=== PATIENT | female | born 1960 | race Caucasian/White ===

== ENCOUNTER 2022-06-30 17:42 | Emergency (ER) | payer MEDICAID ==
[~2022-06-30] VITALS: Ht 172.7 cm; Wt 118.2 kg
[~2022-06-30 17:42] MED LIST: AMYL1CAP56 PO; AMYL1CAP57 PO; ATOR20TA66 PO; BUDE10.2 INH; BUSP10TA11 PO; CLOT15CR73 TOP; DICL20GE TOP; DIVA-76 PO; FERR325T28 PO; IPRA3AMP31 IH; LEVE500T99 PO; LOP12.5T PO; METF-436 PO; MIRT-67 PO; NICO-907 BC; ONDA4TAB12 PO; PANT-47 PO; PRAZ5CAP2 PO; QUET25TA36 PO; QUET400T54 PO; QUET50TA15 PO; SUCR1TAB PO; TIOT4MIS5 INH; TRAM50TA2 PO; VENL75CA61 PO
--- NOTE | 2022-06-30 19:58 | NUR ---
SZ PADS IN PLACE
[2022-06-30] MEDS ORDERED: LORazepam 2 mg/ml vial IM ONE (20:15)
[2022-06-30 21:08] LABS: ALANINE AMINOTRANSFERASE 15 U/L (12-78); ALBUMIN 3.6 G/DL (3.4-5.0); ALKALINE PHOSPHATASE 95 IU/L (46-116); ANION GAP 9 (8-16); ASPARTATE AMINO TRANSFERASE 11 U/L (10-37); BILIRUBIN,TOTAL 0.3 MG/DL (0.1-1.0); BLOOD UREA NITROGEN 20 MG/DL (7-18); BUN/CREATININE RATIO 20.8 (6.6-38.0); CALCIUM 9.6 MG/DL (8.5-10.1); CHLORIDE 107 MMOL/L (99-107); CREATININE 0.96 MG/DL (0.40-0.90); GLUCOSE 111 MG/DL (70-104); POTASSIUM 4.3 MMOL/L (3.5-5.1); SODIUM 144 MMOL/L (135-145); TOTAL CARBON DIOXIDE 27.6 MMOL/L (24-32); TOTAL PROTEIN 7.1 G/DL (6.4-8.2); eGFR 59 ML/MIN
[2022-06-30 21:09] LABS: VALPROATE 52 UG/ML (50-100)
[2022-06-30 21:10] LABS: BASOPHILS # (AUTO) 0.1 X10'3 (0-0.2); BASOPHILS % (AUTO) 0.8 % (0-1); EOSINOPHILS # (AUTO) 0.2 X10'3 (0-0.9); EOSINOPHILS % (AUTO) 3.1 % (0-6); HEMATOCRIT 36.3 % (35.0-45.0); HEMOGLOBIN 12.3 g/dl (12.0-16.0); LYMPHOCYTES # (AUTO) 2.5 X10'3 (1.1-4.8); LYMPHOCYTES % (AUTO) 32.8 % (21-51); MEAN CORPUSCULAR HEMOGLOBIN 33.2 PG (27.0-31.0); MEAN CORPUSCULAR VOLUME 97.9 FL (78-98); MEAN PLATELET VOLUME 6.9 FL (7.4-10.4); MONOCYTES # (AUTO) 0.4 X10'3 (0-0.9); MONOCYTES % (AUTO) 5.5 % (2-12); NEUTROPHILS # (AUTO) 4.4 X10'3 (1.8-7.7); NEUTROPHILS % (AUTO) 57.8 % (42-75); PLATELET COUNT 317 X10'3 (140-440); RED BLOOD COUNT 3.71 X10'6 (4.20-5.60); RED CELL DISTRIBUTION WIDTH 14.4 % (11.5-14.5); WHITE BLOOD COUNT 7.6 X10'3 (4.5-11.0)
[2022-06-30] MEDS ORDERED: divalproex 250mg tablet, delayed-release PO ONE (21:15)
[2022-06-30 22:55] VITALS: BP 118/74
== END 2022-06-30 22:58 | disposition home or self-care (01) ==
LOC: ER 17:42
DX: R56.9 Unspecified convulsions (principal); I48.91 Unspecified atrial fibrillation; I10 Essential (primary) hypertension; J44.9 Chronic obstructive pulmonary disease, unspecified; E11.9 Type 2 diabetes mellitus without complications; F32.A Depression, unspecified; Z86.69 Personal history of other diseases of the nervous system and sense organs; Z86.19 Personal history of other infectious and parasitic diseases; Z98.890 Other specified postprocedural states; Z88.1 Allergy status to other antibiotic agents; Z88.8 Allergy status to other drugs, medicaments and biological substances; Z88.6 Allergy status to analgesic agent; Z79.899 Other long term (current) drug therapy
CPT/HCPCS: 36415; 72100; 80053; 80164; 82948; 85025; 93005; 96372; 99285; J2060

== ENCOUNTER 2022-08-03 17:20 | Emergency (ER) | payer MEDICAID ==
[~2022-08-03] VITALS: Ht 172.7 cm; Wt 84.1 kg
[2022-08-03 18:09] VITALS: BP 156/68
[2022-08-03] MEDS ORDERED: morphine IR (immed. release) 30mg tablet PO STA (20:34)
[2022-08-03] MEDS ORDERED: ondansetron 4mg rapidly disintigrating tab PO ONE (20:35)
--- NOTE | 2022-08-03 22:18 | NUR ---
assessment verified for Millie Clark LPN
== END 2022-08-03 22:51 | disposition home or self-care (01) ==
LOC: ER 17:21
DX: G89.29 Other chronic pain (principal); M54.9 Dorsalgia, unspecified; I10 Essential (primary) hypertension; J44.9 Chronic obstructive pulmonary disease, unspecified; E11.9 Type 2 diabetes mellitus without complications; F32.A Depression, unspecified; Z88.1 Allergy status to other antibiotic agents; Z79.899 Other long term (current) drug therapy; Z88.6 Allergy status to analgesic agent
CPT/HCPCS: 72131; 99283; 99284

== ENCOUNTER 2022-11-28 21:28 | Emergency (ER) | payer MEDICAID ==
[~2022-11-28] VITALS: Ht 172.7 cm; Wt 118.2 kg
[2022-11-28 21:32] VITALS: BP 126/84
[2022-11-28 22:01] LABS: ALANINE AMINOTRANSFERASE 37 U/L (12-78); ALBUMIN 3.4 G/DL (3.4-5.0); ALKALINE PHOSPHATASE 146 IU/L (46-116); ANION GAP 8 (8-16); ASPARTATE AMINO TRANSFERASE 17 U/L (10-37); BILIRUBIN,TOTAL 0.2 MG/DL (0.1-1.0); BLOOD UREA NITROGEN 18 MG/DL (7-18); BUN/CREATININE RATIO 18.8 (10.0-20.0); CALCIUM 9.3 MG/DL (8.5-10.1); CHLORIDE 101 MMOL/L (99-107); CREATININE 0.96 MG/DL (0.40-0.90); GLUCOSE 351 MG/DL (70-104); SODIUM 133 MMOL/L (135-145); TOTAL CARBON DIOXIDE 23.7 MMOL/L (24-32); TOTAL PROTEIN 6.7 G/DL (6.4-8.2); eGFR 59 ML/MIN
[2022-11-28 22:17] LABS: POTASSIUM 4.4 MMOL/L (3.5-5.1)
[2022-11-28 22:30] LABS: BASOPHILS # (AUTO) 0.1 X10'3 (0-0.2); EOSINOPHILS # (AUTO) 0.1 X10'3 (0-0.9); EOSINOPHILS % (AUTO) 2.7 % (0-6); HEMATOCRIT 38.7 % (35.0-45.0); HEMOGLOBIN 13.1 g/dl (12.0-16.0); LYMPHOCYTES # (AUTO) 2.2 X10'3 (1.1-4.8); LYMPHOCYTES % (AUTO) 42.2 % (21-51); MEAN CORPUSCULAR HEMOGLOBIN 32.8 PG (27.0-31.0); MEAN CORPUSCULAR HGB CONC 33.8 g/dL (33.0-36.5); MEAN CORPUSCULAR VOLUME 97.2 FL (78-98); MONOCYTES # (AUTO) 0.3 X10'3 (0-0.9); MONOCYTES % (AUTO) 5.5 % (2-12); NEUTROPHILS # (AUTO) 2.5 X10'3 (1.8-7.7); NEUTROPHILS % (AUTO) 48.6 % (42-75); PLATELET COUNT 256 X10'3 (140-440); RED BLOOD COUNT 3.98 X10'6 (4.20-5.60); RED CELL DISTRIBUTION WIDTH 12.9 % (11.5-14.5); WHITE BLOOD COUNT 5.2 X10'3 (4.5-11.0)
[2022-11-28] MEDS ORDERED: normal saline 1000ml 1,000 ML IV ONE (23:10)
[2022-11-29] MEDS ORDERED: acetaminophen 325mg tablet PO ONE (00:30)
== END 2022-11-29 01:37 | disposition home or self-care (01) ==
LOC: ER 21:28
DX: R42 Dizziness and giddiness (principal); R11.0 Nausea; I50.9 Heart failure, unspecified; J45.909 Unspecified asthma, uncomplicated; E11.9 Type 2 diabetes mellitus without complications; F32.A Depression, unspecified; Z88.1 Allergy status to other antibiotic agents; Z88.8 Allergy status to other drugs, medicaments and biological substances; Z79.899 Other long term (current) drug therapy; Z88.6 Allergy status to analgesic agent; Z79.82 Long term (current) use of aspirin
CPT/HCPCS: 36415; 71045; 80053; 83880; 84484; 85025; 93005; 96360; 99285; J7030

== ENCOUNTER 2023-02-14 23:24 | Emergency (ER) | payer MEDICAID ==
[~2023-02-14] VITALS: Ht 172.7 cm; Wt 118.2 kg
[2023-02-15 00:03] LABS: ALANINE AMINOTRANSFERASE 16 U/L (12-78); ALBUMIN 3.5 G/DL (3.4-5.0); ALBUMIN/GLOBULIN RATIO 1.1 (1.1-1.5); ALKALINE PHOSPHATASE 83 IU/L (46-116); ANION GAP 10 (8-16); ASPARTATE AMINO TRANSFERASE 10 U/L (10-37); BILIRUBIN,TOTAL 0.3 MG/DL (0.1-1.0); BLOOD UREA NITROGEN 19 MG/DL (7-18); BUN/CREATININE RATIO 20.7 (10.0-20.0); CALCIUM 9.3 MG/DL (8.5-10.1); CHLORIDE 105 MMOL/L (99-107); CREATININE 0.92 MG/DL (0.40-0.90); GLUCOSE 239 MG/DL (70-104); POTASSIUM 3.7 MMOL/L (3.5-5.1); SODIUM 138 MMOL/L (135-145); TOTAL CARBON DIOXIDE 23.1 MMOL/L (24-32); TOTAL PROTEIN 6.6 G/DL (6.4-8.2); eGFR 61 ML/MIN
[2023-02-15 00:17] LABS: BASOPHILS % (AUTO) 0.3 % (0-1); EOSINOPHILS % (AUTO) 0 % (0-6); HEMATOCRIT 36.9 % (35.0-45.0); LYMPHOCYTES # (AUTO) 2.1 X10'3 (1.1-4.8); LYMPHOCYTES % (AUTO) 38.5 % (21-51); MEAN CORPUSCULAR HEMOGLOBIN 32.1 PG (27.0-31.0); MEAN CORPUSCULAR HGB CONC 32.6 g/dL (33.0-36.5); MEAN CORPUSCULAR VOLUME 98.4 FL (78-98); MEAN PLATELET VOLUME 7.1 FL (7.4-10.4); MONOCYTES # (AUTO) 0.2 X10'3 (0-0.9); MONOCYTES % (AUTO) 4.2 % (2-12); NEUTROPHILS # (AUTO) 3.1 X10'3 (1.8-7.7); PLATELET COUNT 211 X10'3 (140-440); RED BLOOD COUNT 3.75 X10'6 (4.20-5.60); RED CELL DISTRIBUTION WIDTH 13.4 % (11.5-14.5); WHITE BLOOD COUNT 5.5 X10'3 (4.5-11.0)
[2023-02-15] MEDS ORDERED: normal saline 1000ml 1,000 ML IV ONE (00:25)
[2023-02-15] MEDS ORDERED: LORazepam 2 mg/ml vial IV ONE (00:25)
[2023-02-15 02:50] LABS: CLARITY,URINE CLEAR (Clear); COLOR,URINE YELLOW (Yellow); GLUCOSE, URINE 500 mg/dl (Neg); KETONES,URINE TRACE mg/dl (Neg); LEUKOCYTE ESTERASE ,URINE NEGATIVE (Neg); NITRITES, URINE NEGATIVE (Neg); OCCULT BLOOD,URINE NEGATIVE (Neg); PROTEIN,URINE NEGATIVE (Neg); UROBILINOGEN,URINE 0.2 E.U/dL (0.2-1.0)
[2023-02-15 02:56] LABS: UA COLLECTION TYPE STRAIGHT CATH
[2023-02-15 05:08] VITALS: BP 119/47
== END 2023-02-15 05:10 | disposition home or self-care (01) ==
LOC: ER 23:24
DX: S60.222A Contusion of left hand, initial encounter (principal); R56.9 Unspecified convulsions; M54.6 Pain in thoracic spine; X58.XXXA Exposure to other specified factors, initial encounter; Y93.89 Activity, other specified; Y92.89 Other specified places as the place of occurrence of the external cause; Y99.8 Other external cause status
CPT/HCPCS: 36415; 71045; 72110; 73130; 80053; 81003; 82948; 83880; 84484; 85025; 93005; 96361; 96374; 99285; J2060; J7030

== ENCOUNTER 2023-02-23 11:26 | Emergency (ER) | payer MEDICAID ==
[~2023-02-23] VITALS: Ht 172.7 cm; Wt 120.0 kg
[2023-02-23 13:17] LABS: EOSINOPHILS % (AUTO) 0.1 % (0-6); LYMPHOCYTES # (AUTO) 2.4 X10'3 (1.1-4.8); MEAN PLATELET VOLUME 8.4 FL (7.4-10.4); MONOCYTES # (AUTO) 0.6 X10'3 (0-0.9)
[2023-02-23 13:18] LABS: BASOPHILS # (AUTO) 0.1 X10'3 (0-0.2); BASOPHILS % (AUTO) 0.8 % (0-1); HEMATOCRIT 37.5 % (35.0-45.0); HEMOGLOBIN 12.9 g/dl (12.0-16.0); MEAN CORPUSCULAR HEMOGLOBIN 33.2 PG (27.0-31.0); MEAN CORPUSCULAR HGB CONC 34.5 g/dL (33.0-36.5); MEAN CORPUSCULAR VOLUME 96.4 FL (78-98); MONOCYTES % (AUTO) 5.9 % (2-12); NEUTROPHILS % (AUTO) 69.2 % (42-75); PLATELET COUNT 231 X10'3 (140-440); RED BLOOD COUNT 3.89 X10'6 (4.20-5.60); RED CELL DISTRIBUTION WIDTH 13.4 % (11.5-14.5)
[2023-02-23 13:34] LABS: URINE AMPHETAMINE SCREEN NEGATIVE (Neg); URINE BARBITUATE SCREEN NEGATIVE (Neg); URINE BENZODIAZEPINES SCREEN NEGATIVE (Neg); URINE CANNABINOID SCREEN POSITIVE (Neg); URINE COCAINE SCREEN NEGATIVE (Neg); URINE METHADONE SCREEN NEGATIVE (Neg); URINE OPIATE SCREEN NEGATIVE (Neg); URINE PHENCYCLIDINE SCREEN NEGATIVE (Neg)
[2023-02-23 13:34] LABS: ALANINE AMINOTRANSFERASE 26 U/L (12-78); ALBUMIN 3.4 G/DL (3.4-5.0); ALBUMIN/GLOBULIN RATIO 1.1 (1.1-1.5); ALKALINE PHOSPHATASE 101 IU/L (46-116); ANION GAP 12 (8-16); ASPARTATE AMINO TRANSFERASE 11 U/L (10-37); BILIRUBIN,TOTAL 0.2 MG/DL (0.1-1.0); BLOOD UREA NITROGEN 16 MG/DL (7-18); BUN/CREATININE RATIO 48.5 (10.0-20.0); CHLORIDE 101 MMOL/L (99-107); CREATININE 0.33 MG/DL (0.40-0.90); ETHANOL < 0.010 GM/DL (0.0-0.010); GLUCOSE 306 MG/DL (70-104); POTASSIUM 3.7 MMOL/L (3.5-5.1); SODIUM 137 MMOL/L (135-145); TOTAL CARBON DIOXIDE 23.6 MMOL/L (24-32); TOTAL PROTEIN 6.5 G/DL (6.4-8.2); eGFR > 90 ML/MIN
--- NOTE | 2023-02-23 14:30 | NUR ---
Pt. arrived via WC with NC, reports 2L/M O2, Pt. inventory completed, and all medications taken to pharmacy
--- NOTE | 2023-02-23 17:36 | NUR ---
Pt. in bed awake, reading a book, no s/sx of distress.
[2023-02-23] MEDS ORDERED: dextrose 50%-water 50ml dispensing syringe IV PRN ×2 (17:40)
[2023-02-23] MEDS ORDERED: DEXTROSE 15 GM of carb/4 tabs (each vial/BOTTLE has 4 tablets) PO PRN ×2 (17:40)
[2023-02-23] MEDS ORDERED: glucagon, human recombinant 1mg kit SUBCUT PRN (17:40)
[2023-02-23] MEDS ORDERED: MESSAGE TO PHARMACY PO ONE (17:40)
[2023-02-23] MEDS ORDERED: LIPASE/PROTEASE/AMYLASE 10,500 units CAPSULE.DR PO PRN (18:00)
[2023-02-23] MEDS ORDERED: ipratropium/albuterol 3ml nebule IH PRN (18:00)
[2023-02-23] MEDS ORDERED: ondansetron 4mg rapidly disintigrating tab PO PRN (18:00)
[2023-02-23] MEDS ORDERED: METO25TA6 PO (18:03)
[2023-02-23] MEDS ORDERED: QUET50TA94 PO (18:03)
[2023-02-23] MEDS ORDERED: ATOR40TA72 PO (18:03)
[2023-02-23] MEDS ORDERED: QUET400T54 PO (18:03)
[2023-02-23] MEDS ORDERED: LEVE10006 PO (18:42)
--- NOTE | 2023-02-23 18:46 | NUR ---
Pt eating dinner at bedside. No acute distress noted.
[2023-02-23] MEDS ORDERED: non-formulary drug (Levetiracetam 1 TAB) PO SCH (20:00)
[2023-02-23] MEDS: nystatin 15 GM powder TP SCH (20:00)
[2023-02-23] MEDS: busPIRone 15mg tablet PO SCH (20:27)
[2023-02-23] MEDS: atorvastatin 20mg tablet PO SCH (20:27)
[2023-02-23] MEDS: mirtazapine 15mg tablet PO SCH (20:27)
[2023-02-23] MEDS: ferrous sulfate 325mg tablet PO SCH (20:27)
[2023-02-23] MEDS: levetiracetam 250mg tablet PO SCH (20:27)
[2023-02-23] MEDS: divalproex 250mg tablet, delayed-release PO SCH (20:27)
[2023-02-23] MEDS: sucralfate 1 gm tablet PO SCH (20:28)
[2023-02-23] MEDS: metoprolol tartrate 12.5mg (1/2 tablet) PO SCH (20:28)
[2023-02-23] MEDS: QUETIAPINE 50 MG TAB.SR.24H PO SCH (21:00)
[2023-02-23] MEDS ORDERED: QUETIAPINE 50 MG TAB.SR.24H PO SCH (21:00)
[2023-02-23] MEDS: prazosin 5mg capsule PO SCH (21:00)
[2023-02-23] MEDS ORDERED: QUETIAPINE 150 MG TAB.SR.24H PO SCH (21:00)
[2023-02-23] MEDS: quetiapine fumarate ER 300mg tablet PO SCH (21:00)
[2023-02-23] MEDS: DICLOFENAC SODIUM 1% gel 1 APPLIC APPLIC TP SCH (21:10)
--- NOTE | 2023-02-23 21:12 | NUR ---
HS medications administered. Accucheck done and was 310. Pt reading a book at this time.
[2023-02-23] MEDS: insulin Lispro (HumaLOG) vial - multi-dose SQ SCH (21:41)
[2023-02-23] MEDS: insulin glargine (Lantus) pen - multi-dose SQ SCH (21:43)
--- NOTE | 2023-02-23 21:46 | NUR ---
Insulin administered per orders/protocol. Pt continues to read in bed, no distress noted.
--- NOTE | 2023-02-23 23:15 | NUR ---
Pt appears to be sleeping on her left side, noted rise and fall of chest.
--- NOTE | 2023-02-24 00:47 | NUR ---
Patient sleeping on her left side. Patient is wearing oxygen. No distress observed. Continue to monitor.
--- NOTE | 2023-02-24 02:31 | NUR ---
Patient continues to sleep. No distress observed. Patient has Oxygen 2 liters via NC. Continue to monitor.
--- NOTE | 2023-02-24 02:43 | NUR ---
Patient ambulatory to BR, steady gait. No distress observed. Continue to monitor.
[2023-02-24] MEDS: ipratropium 0.5 MG/2.5ML nebule NEB SCH ×4 (02:56→21:32)
--- NOTE | 2023-02-24 04:40 | NUR ---
Patient sleeping with oxygen via NC. No distress observed. Continue to monitor.
--- NOTE | 2023-02-24 06:48 | NUR ---
Patient awake and looking at a book. No distress observed. Continue to monitor.
--- NOTE | 2023-02-24 08:12 | NUR ---
Patient eating breakfast. No distress observed. Continue to monitor.
[2023-02-24] MEDS: levetiracetam 250mg tablet PO SCH ×2 (08:14→20:30)
[2023-02-24] MEDS: busPIRone 15mg tablet PO SCH ×2 (08:15→20:31)
[2023-02-24] MEDS: sucralfate 1 gm tablet PO SCH ×2 (08:15→20:31)
[2023-02-24] MEDS: pantoprazole 40mg Tablet.DR PO SCH (08:15)
[2023-02-24] MEDS: metoprolol tartrate 12.5mg (1/2 tablet) PO SCH ×2 (08:17→20:30)
[2023-02-24] MEDS: ferrous sulfate 325mg tablet PO SCH ×2 (08:17→20:30)
[2023-02-24] MEDS: venlafaxine XR 75mg capsule (Q24H) PO SCH (08:17)
[2023-02-24] MEDS: divalproex 250mg tablet, delayed-release PO SCH ×2 (08:17→20:31)
[2023-02-24] MEDS: DICLOFENAC SODIUM 1% gel 1 APPLIC APPLIC TP SCH ×4 (08:18→20:33)
[2023-02-24] MEDS: nystatin 15 GM powder TP SCH ×2 (08:18→20:30)
[2023-02-24] MEDS: insulin Lispro (HumaLOG) vial - multi-dose SQ SCH ×4 (08:40→21:54)
--- NOTE | 2023-02-24 08:50 | NUR ---
Patient went to speak to patient and patien't arms and legs were moving but patient was completely awake. RN asked patient what was going on. Patient stated she was having a seizure. RN advised patient that she did receive Keppra a little earlier. The shaking stopped after I spoke to patient. Continue to monitor.
--- NOTE | 2023-02-24 09:57 | NUR ---
Raquel PACE, evaluating patient. No distress observed at this time. Continue to monitor.
--- NOTE | 2023-02-24 11:51 | NUR ---
Patient sleeping. No distress observed. Continue to monitor.
--- NOTE | 2023-02-24 12:25 | NUR ---
Patient eating lunch. No distress observed. Continue to monitor.
--- NOTE | 2023-02-24 14:05 | NUR ---
Patient sleeping on her right side. No distress observed. Continue to monitor.
--- NOTE | 2023-02-24 16:01 | NUR ---
Patient laying in bed with ear plugs in ears due to commotion in ED. OF. No distress observed. Continue to monitor.
--- NOTE | 2023-02-24 18:35 | NUR ---
Received patient eating dinner. Insulin to be given once she's finished eating. Pleasant and cooperative. No needs expressed at this time.
[2023-02-24] MEDS: mirtazapine 15mg tablet PO SCH (20:30)
[2023-02-24] MEDS: prazosin 5mg capsule PO SCH (20:30)
--- NOTE | 2023-02-24 20:30 | NUR ---
Patient compliant with HS meds. Administered a PRN Ultram for pain. Will continue to monitor.
[2023-02-24] MEDS: quetiapine fumarate ER 300mg tablet PO SCH (20:31)
[2023-02-24] MEDS: QUETIAPINE 50 MG TAB.SR.24H PO SCH (20:31)
[2023-02-24] MEDS: atorvastatin 20mg tablet PO SCH (20:31)
[2023-02-24] MEDS: traMADol 50MG tablet PO PRN (20:34)
--- NOTE | 2023-02-24 21:45 | NUR ---
Patient received her HS RT tx, Lantus, and Humalog insulins with her HS snack. Patient currently reading a book. Will continue to monitor.
[2023-02-24] MEDS: insulin glargine (Lantus) pen - multi-dose SQ SCH (21:55)
--- NOTE | 2023-02-24 23:05 | NUR ---
Patient appears to be sleeping. Resting on left side with eyes closed. Will continue to monitor.
--- NOTE | 2023-02-25 00:25 | NUR ---
Currently sleeping. Will continue to monitor.
--- NOTE | 2023-02-25 02:03 | NUR ---
Patient sleeping. Will continue to monitor.
[2023-02-25] MEDS: ipratropium 0.5 MG/2.5ML nebule NEB SCH ×4 (03:00→21:00)
--- NOTE | 2023-02-25 05:00 | NUR ---
Patient asleep. Will continue to monitor.
--- NOTE | 2023-02-25 06:45 | NUR ---
Patient sleeping. No distress observed. Continue to monitor.
--- NOTE | 2023-02-25 08:03 | NUR ---
Patient eating breakfast. No distress observed. Continue to monitor.
[2023-02-25] MEDS: insulin Lispro (HumaLOG) vial - multi-dose SQ SCH ×4 (08:43→21:22)
[2023-02-25] MEDS: busPIRone 15mg tablet PO SCH ×2 (08:45→21:15)
[2023-02-25] MEDS: divalproex 250mg tablet, delayed-release PO SCH ×2 (08:45→21:16)
[2023-02-25] MEDS: sucralfate 1 gm tablet PO SCH ×2 (08:45→21:14)
[2023-02-25] MEDS: levetiracetam 250mg tablet PO SCH ×2 (08:45→21:15)
[2023-02-25] MEDS: pantoprazole 40mg Tablet.DR PO SCH (08:45)
[2023-02-25] MEDS: ferrous sulfate 325mg tablet PO SCH ×2 (08:45→21:15)
[2023-02-25] MEDS: metoprolol tartrate 12.5mg (1/2 tablet) PO SCH ×2 (08:46→21:14)
[2023-02-25] MEDS: venlafaxine XR 75mg capsule (Q24H) PO SCH (08:46)
[2023-02-25] MEDS: DICLOFENAC SODIUM 1% gel 1 APPLIC APPLIC TP SCH ×4 (08:47→21:00)
[2023-02-25] MEDS: nystatin 15 GM powder TP SCH ×2 (08:47→20:00)
--- NOTE | 2023-02-25 09:05 | NUR ---
Patient refused the gel for her back and requested a Tramadol for her back pain. Patient drinking coffee. No distress observed. Continue to monitor.
[2023-02-25] MEDS: traMADol 50MG tablet PO PRN ×2 (09:11→17:15)
--- NOTE | 2023-02-25 11:59 | NUR ---
Patient ambulatory to BR, steady gait. No distress observed. Continue to monitor.
--- NOTE | 2023-02-25 14:10 | NUR ---
Patient sleeping and on Oxygen via NC. No distress observed. Continue to monitor.
--- NOTE | 2023-02-25 16:26 | NUR ---
Patient at nurse's station asking for her son's phone number. No recorded. Patient gave it to the health care social worker yesterday. RN went into patient's back pack and found her phone but it needed to be charged. RN found the patent lawyer and plugged at nurse's station. When charged, patient may get the number at the nurse's station. Patient is calm and cooperative. Continue to monitor.
--- NOTE | 2023-02-25 17:15 | NUR ---
Patient in bed reading a book and advises RN that her back pain is an 8/10. Tramadol given. Continue to monitor.
--- NOTE | 2023-02-25 18:30 | NUR ---
Patient eating dinner. Quietly resting in bed. No nneds voiced. Will continue to monitor.
--- NOTE | 2023-02-25 19:00 | NUR ---
Administered sliding scale insulin post dinner. Tolerated well. Asked for cell phone to get her son's number. Collected the numbers and called her son. Will continue to monitor.
--- NOTE | 2023-02-25 19:58 | NUR ---
Currently sitting in bed with light off. No needs voiced at this time. Will continue to monitor.
[2023-02-25] MEDS: atorvastatin 20mg tablet PO SCH (21:14)
[2023-02-25] MEDS: QUETIAPINE 50 MG TAB.SR.24H PO SCH (21:15)
[2023-02-25] MEDS: quetiapine fumarate ER 300mg tablet PO SCH (21:15)
[2023-02-25] MEDS: prazosin 5mg capsule PO SCH (21:15)
--- NOTE | 2023-02-25 21:15 | NUR ---
Compliant with HS meds. Pain improved from 1715 Ultram. Received 3 units SSI and 12 Units Lantus SQ with 2 packets saltine crackers. Patient is feeling sleepy and is trying to fall asleep. No complaints noted at this time. Will continue to monitor.
[2023-02-25] MEDS: mirtazapine 15mg tablet PO SCH (21:16)
[2023-02-25] MEDS: insulin glargine (Lantus) pen - multi-dose SQ SCH (21:24)
--- NOTE | 2023-02-25 22:02 | NUR ---
Patient appears to be sleeping. Rise/fall of chest noted. Will continue to monitor.
--- NOTE | 2023-02-26 00:25 | NUR ---
Patient go up to BR. Back in bed. Resting with eyes closed. Will continue to monitor.
[2023-02-26] MEDS: traMADol 50MG tablet PO PRN ×3 (02:24→20:17)
--- NOTE | 2023-02-26 02:24 | NUR ---
Patient woke up and requested an Ultram. Administered an Ultram at this time and went back to sleep.
[2023-02-26] MEDS: ipratropium 0.5 MG/2.5ML nebule NEB SCH ×4 (02:58→20:07)
--- NOTE | 2023-02-26 04:30 | NUR ---
Patient sleeping. Will continue to monitor.
--- NOTE | 2023-02-26 07:04 | NUR ---
Pt resting comfortbly on left side, rr even and unlabored. Addendum: 02/26/23 at 1021 by NEIDA Pt on 2LNC
[2023-02-26] MEDS: insulin Lispro (HumaLOG) vial - multi-dose SQ SCH ×3 (09:58→18:10)
--- NOTE | 2023-02-26 10:00 | NUR ---
One to one with patient to assess SI and mood. Pt was pleasant on greeting. Pt was compliant with care and medication. Pt ate 100% of her breakfast. Pt reports continued SI with a plan "I could cut my wrists, hang myself, or walk into the river." Pt states "I have fibromyaligia and that river would freeze me up and I would drown." Pt reports [facility] issues to include her grandchildren being taken away and placed into a foster home r/t her MH. Pt appears more angry then sad, but still would not feel safe going home. Pt denies HI, endorses AH "I hear so many voices in my head, I don't know what they are saying." "It's like a convention and a lot of buzzing." "I sometimes feel like I have luisa between my ears." Pt is visible to staff.
[2023-02-26] MEDS: sucralfate 1 gm tablet PO SCH ×2 (10:04→20:37)
[2023-02-26] MEDS: levetiracetam 250mg tablet PO SCH ×2 (10:07→20:14)
[2023-02-26] MEDS: nystatin 15 GM powder TP SCH ×2 (10:07→20:17)
[2023-02-26] MEDS: venlafaxine XR 75mg capsule (Q24H) PO SCH (10:08)
[2023-02-26] MEDS: divalproex 250mg tablet, delayed-release PO SCH ×2 (10:08→20:15)
[2023-02-26] MEDS: busPIRone 15mg tablet PO SCH ×2 (10:08→20:15)
[2023-02-26] MEDS: pantoprazole 40mg Tablet.DR PO SCH (10:08)
[2023-02-26] MEDS: ferrous sulfate 325mg tablet PO SCH ×2 (10:09→20:15)
[2023-02-26] MEDS: DICLOFENAC SODIUM 1% gel 1 APPLIC APPLIC TP SCH ×4 (10:10→20:18)
[2023-02-26] MEDS: metoprolol tartrate 12.5mg (1/2 tablet) PO SCH ×2 (10:10→20:16)
--- NOTE | 2023-02-26 12:05 | NUR ---
Patient lying awake reading. No complaints.
--- NOTE | 2023-02-26 13:15 | NUR ---
Pt was up to the bathroom, when she returned pt told magnetic tape typewriter operator on of the other patient's made her nervous. This particular patient had recently been medicated and magnetic tape typewriter operator explained staff could walk with her next time.
--- NOTE | 2023-02-26 13:36 | NUR ---
Pt c/o of back pain and requested PRN Tramadol. Addendum: 02/26/23 at 1612 by NEIDA Tramadol effective.
--- NOTE | 2023-02-26 13:55 | NUR ---
Pt's son at bedside, conversation appropriate.
--- NOTE | 2023-02-26 14:02 | NUR ---
Patient resting comfortably on left side, rr even and unlabored.
--- NOTE | 2023-02-26 14:10 | NUR ---
pt. refused afternoon SVN. No resp. distress observed
--- NOTE | 2023-02-26 16:10 | NUR ---
Pt awake sitting on her bed. Pt restless, but declined intervention.
[2023-02-26] MEDS: insulin glargine (Lantus) pen - multi-dose SQ SCH (20:13)
[2023-02-26] MEDS: quetiapine fumarate ER 300mg tablet PO SCH (20:14)
[2023-02-26] MEDS: prazosin 5mg capsule PO SCH (20:15)
[2023-02-26] MEDS: atorvastatin 20mg tablet PO SCH (20:16)
[2023-02-26] MEDS: mirtazapine 15mg tablet PO SCH (20:17)
[2023-02-26] MEDS: QUETIAPINE 50 MG TAB.SR.24H PO SCH (20:36)
--- NOTE | 2023-02-26 20:55 | NUR ---
The patient has been resting on her bed reading a book. She ambulates independently to the bathroom. She does report sob when up to use the bathroom. She is using 02 via NC at 2l. She stated that her mood was "okay" She also claims to be depressed but reports her depression is slightly less than on admit to the ER. She is aware that her 5150 hold is up tomorrow and she will be re-evaluated by [facility] tomorrow. When asked if she felt suicidal she reported "all the time. I have had suicidal thoughts for 51 years. I just don't act on it" She reports she is unsure if she can be safe if she were at home. She reports AH but stated that she cannot make out what the voices are saying. She denies VH at this time. HS BS was 143.
--- NOTE | 2023-02-26 21:27 | NUR ---
The patient appears to be sleeping
--- NOTE | 2023-02-26 22:52 | NUR ---
The patient appears to be sleeping
--- NOTE | 2023-02-27 00:02 | NUR ---
The patient appears to be sleeping
--- NOTE | 2023-02-27 01:37 | NUR ---
The patient is currently sleeping. Was up once to use the bathroom and request snack items.
--- NOTE | 2023-02-27 02:34 | NUR ---
The patient appears to be sleeping
[2023-02-27] MEDS: ipratropium 0.5 MG/2.5ML nebule NEB SCH ×4 (02:40→21:00)
--- NOTE | 2023-02-27 03:45 | NUR ---
The patient is currently awake 2nd to agitation of another peer. She is quietly resting on her bed.
--- NOTE | 2023-02-27 05:00 | NUR ---
The patient appears to be sleeping
[2023-02-27] MEDS: traMADol 50MG tablet PO PRN ×3 (06:02→20:39)
--- NOTE | 2023-02-27 06:30 | NUR ---
Received pt. sleeping in bed at the beginning of the shift, rise and fall of chest noted. Pt. continues to receive oxygen via nasal cannula at 2L/min.
[2023-02-27] MEDS: sucralfate 1 gm tablet PO SCH ×2 (07:39→20:38)
[2023-02-27] MEDS: DICLOFENAC SODIUM 1% gel 1 APPLIC APPLIC TP SCH ×4 (08:00→20:40)
[2023-02-27] MEDS: insulin Lispro (HumaLOG) vial - multi-dose SQ SCH ×3 (08:22→18:29)
--- NOTE | 2023-02-27 08:30 | NUR ---
1:1 was completed at bedside, pt. presents as pleasant and cooperative. Pt. reports ongoing S/I, but reports it is not as bad today. When questioned regarding any plan, pt. states, "Whatever way. I live [facility] [place] When questioned by this television writer regarding any V/GARSIA, pt. reports that she sees "Shadows." When questioned regarding any A/GARSIA, pt. endorses theses and states, "I feel like I'm in a convention crane and can't pick out any one conversation."
[2023-02-27] MEDS: levetiracetam 250mg tablet PO SCH ×2 (08:32→20:38)
[2023-02-27] MEDS: venlafaxine XR 75mg capsule (Q24H) PO SCH (08:32)
[2023-02-27] MEDS: busPIRone 15mg tablet PO SCH ×2 (08:32→20:38)
[2023-02-27] MEDS: ferrous sulfate 325mg tablet PO SCH ×2 (08:32→20:38)
[2023-02-27] MEDS: divalproex 250mg tablet, delayed-release PO SCH ×2 (08:32→20:37)
[2023-02-27] MEDS: metoprolol tartrate 12.5mg (1/2 tablet) PO SCH ×2 (08:33→20:38)
[2023-02-27] MEDS: nystatin 15 GM powder TP SCH ×2 (08:33→20:37)
[2023-02-27] MEDS: pantoprazole 40mg Tablet.DR PO SCH (08:33)
--- NOTE | 2023-02-27 10:31 | NUR ---
Pt. is sleeping at this time, rr are even and unlabored.
--- NOTE | 2023-02-27 11:52 | NUR ---
Pt's family is at bedside visiting her at this time.
--- NOTE | 2023-02-27 12:20 | NUR ---
Pt's family remains at bedside at this time. Plastic knife removed from pt's tray per safety precautions and request for no plastic knives on pt's tray was sent to [facility].
--- NOTE | 2023-02-27 12:51 | NUR ---
Jose Angel PACE, ANNE is here evaluating patient.
--- NOTE | 2023-02-27 14:28 | NUR ---
Pt. is laying in bed reading at this time, she was provided with MOM for constipation.
--- NOTE | 2023-02-27 16:20 | NUR ---
Pt. up to use the bathroom at this time. She has refused her ordered Voltarin Gel all day reporting that it does not work for her, will endorse to Noc shift.
--- NOTE | 2023-02-27 17:47 | NUR ---
Pt. is laying in bed sleeping at this time, rr are even and unlabored.
--- NOTE | 2023-02-27 19:21 | NUR ---
The patient's son and his girlfriend came to visit and the girlfriend became agitated and was threatening to take the patient out of the hospital. Security was called and they both calmed down. 5150 status explained. They will come and speak with [facility] tomorrow and state that they feel they can keep her safe.
--- NOTE | 2023-02-27 19:33 | NUR ---
The patient has been resting on her bed. She has been cooperative. When asked if she could be safe at home she replied, "For the most part" Denied visual hallucinations. She reports decreased AH.
[2023-02-27] MEDS: prazosin 5mg capsule PO SCH (20:38)
[2023-02-27] MEDS: mirtazapine 15mg tablet PO SCH (20:38)
[2023-02-27] MEDS: atorvastatin 20mg tablet PO SCH (20:38)
[2023-02-27] MEDS: quetiapine fumarate ER 300mg tablet PO SCH (20:39)
[2023-02-27] MEDS: QUETIAPINE 50 MG TAB.SR.24H PO SCH (20:39)
[2023-02-27] MEDS: insulin glargine (Lantus) pen - multi-dose SQ SCH (20:52)
--- NOTE | 2023-02-27 21:03 | NUR ---
The patient is resting on her bed. Discussed changes to lantus dose. She was given an HS snack.
--- NOTE | 2023-02-27 22:31 | NUR ---
The patient appears to be sleeping
--- NOTE | 2023-02-27 23:16 | NUR ---
The patient appears to be sleeping. Was up briefly to use the bathroom but is now back in bed.
--- NOTE | 2023-02-27 23:56 | NUR ---
The patient appears to be sleeping
--- NOTE | 2023-02-28 01:14 | NUR ---
The patient appears to be sleeping
[2023-02-28] MEDS: ipratropium 0.5 MG/2.5ML nebule NEB SCH ×3 (02:57→15:38)
--- NOTE | 2023-02-28 03:13 | NUR ---
The patient appears to be sleeping
[2023-02-28] MEDS: traMADol 50MG tablet PO PRN ×2 (03:59→11:18)
--- NOTE | 2023-02-28 05:04 | NUR ---
The patient appears to be sleeping at this time. She was up to use the bathroom several times during the night and had ultram for pain once
--- NOTE | 2023-02-28 07:00 | NUR ---
Pt resting comfortably in mid rivera's position, rr even and unlabored. Addendum: 02/28/23 at 1730 by NEIDA Pt on 2LNC
[2023-02-28] MEDS: DICLOFENAC SODIUM 1% gel 1 APPLIC APPLIC TP SCH ×3 (08:00→17:00)
[2023-02-28] MEDS: ferrous sulfate 325mg tablet PO SCH (08:48)
[2023-02-28] MEDS: sucralfate 1 gm tablet PO SCH (08:48)
[2023-02-28] MEDS: pantoprazole 40mg Tablet.DR PO SCH (08:49)
[2023-02-28] MEDS: levetiracetam 250mg tablet PO SCH (08:49)
[2023-02-28] MEDS: divalproex 250mg tablet, delayed-release PO SCH (08:49)
[2023-02-28] MEDS: venlafaxine XR 75mg capsule (Q24H) PO SCH (08:49)
[2023-02-28] MEDS: busPIRone 15mg tablet PO SCH (08:49)
[2023-02-28] MEDS: metoprolol tartrate 12.5mg (1/2 tablet) PO SCH (08:53)
[2023-02-28] MEDS: nystatin 15 GM powder TP SCH (08:54)
--- NOTE | 2023-02-28 08:55 | NUR ---
Pt denies all psychotic symptoms, states she feels safe going home.
--- NOTE | 2023-02-28 09:00 | NUR ---
Pt's son and his girlfriend at bedside. Pt's son wants to speak to [facility] to see about safety planning for pt discharge.
[2023-02-28] MEDS: insulin Lispro (HumaLOG) vial - multi-dose SQ SCH ×2 (09:05→12:49)
--- NOTE | 2023-02-28 11:10 | NUR ---
Pt in bed reading, c/o of back pain 04/13. Pt encouraged to ambulated as she tends to stay in bed. Pt requested PRN Tramdol 50mg.
--- NOTE | 2023-02-28 11:47 | NUR ---
[facility] with patient and pt's son. 5150 was rescinded. Pt notified and is agreeable. Discharge around [id number].
--- NOTE | 2023-02-28 12:30 | NUR ---
Pt awake eating lunch. Pt calm/cooperative.
--- NOTE | 2023-02-28 14:30 | NUR ---
Pt reading her book. Pt calm/cooperative. No complaints of pain.
--- NOTE | 2023-02-28 16:33 | NUR ---
Pt resting comfortably on left side, rr even and unlabored.
[2023-02-28 18:24] VITALS: BP 117/58
== END 2023-02-28 18:29 | disposition home or self-care (01) ==
LOC: ER 11:28
DX: R45.851 Suicidal ideations (principal); Z20.822 Contact with and (suspected) exposure to COVID-19; F32.A Depression, unspecified; I11.9 Hypertensive heart disease without heart failure; I50.9 Heart failure, unspecified; E11.9 Type 2 diabetes mellitus without complications; Z88.1 Allergy status to other antibiotic agents; Z88.8 Allergy status to other drugs, medicaments and biological substances; Z88.6 Allergy status to analgesic agent; Z91.013 Allergy to seafood; Z79.899 Other long term (current) drug therapy; Z79.1 Long term (current) use of non-steroidal anti-inflammatories (NSAID); Z79.2 Long term (current) use of antibiotics
CPT/HCPCS: 36415; 80053; 80305; 80320; 82948; 83036; 85025; 87811; 94640; 96372; 99285; J1815; 94760; A4615

== ENCOUNTER 2023-04-19 18:07 | Inpatient (IN) | payer MEDICAID ==
[~2023-04-19] VITALS: Ht 172.7 cm; Wt 114.5 kg
[~2023-04-19 18:07] MED LIST changes: -AMYL1CAP56 PO; -ATOR20TA66 PO; +ATOR40TA72 PO; -BUDE10.2 INH; -CLOT15CR73 TOP; +LEVE10006 PO; -LEVE500T99 PO; -LOP12.5T PO; -METF-436 PO; +METO25TA6 PO; -NICO-907 BC; -QUET25TA36 PO; -QUET50TA15 PO; +QUET50TA94 PO; -TRAM50TA2 PO
[2023-04-19] MEDS ORDERED: temazepam 15mg capsule PO PRN (21:00)
[2023-04-19] MEDS ORDERED: HYDROcodone/acetaminophen 10/325mg tab PO ONE (21:05)
--- NOTE | 2023-04-19 21:12 | NUR ---
received report assumed care of pt currently in CT
[2023-04-19] MEDS ORDERED: normal saline 1000ML IV soln IVB ONE (22:05)
[2023-04-19] MEDS ORDERED: morphine 2 MG/ML inj. syringe IV PRN ×2 (22:05→22:50)
[2023-04-19 22:32] LABS: BASOPHILS % (AUTO) 0.5 % (0-1); EOSINOPHILS # (AUTO) 0.1 X10'3 (0-0.9); EOSINOPHILS % (AUTO) 1.4 % (0-6); HEMATOCRIT 41.5 % (35.0-45.0); HEMOGLOBIN 13.8 g/dl (12.0-16.0); LYMPHOCYTES # (AUTO) 1.8 X10'3 (1.1-4.8); MEAN CORPUSCULAR HEMOGLOBIN 32.9 PG (27.0-31.0); MEAN CORPUSCULAR HGB CONC 33.3 g/dL (33.0-36.5); MEAN CORPUSCULAR VOLUME 98.9 FL (78-98); MEAN PLATELET VOLUME 7.2 FL (7.4-10.4); MONOCYTES # (AUTO) 0.4 X10'3 (0-0.9); MONOCYTES % (AUTO) 8.5 % (2-12); NEUTROPHILS # (AUTO) 2.1 X10'3 (1.8-7.7); NEUTROPHILS % (AUTO) 47.6 % (42-75); PLATELET COUNT 242 X10'3 (140-440); RED CELL DISTRIBUTION WIDTH 13.9 % (11.5-14.5); WHITE BLOOD COUNT 4.4 X10'3 (4.5-11.0)
--- NOTE | 2023-04-19 22:32 | NUR ---
pt care endorsed to erica hong.
[2023-04-19 22:42] LABS: APTT 30 SECONDS (22-32); INR 1.1 INR; PROTHROMBIN TIME 11.3 SECONDS (9.0-12.0)
[2023-04-19 22:45] LABS: ALANINE AMINOTRANSFERASE 12 U/L (12-78); ALBUMIN 3.5 G/DL (3.4-5.0); ALKALINE PHOSPHATASE 89 IU/L (46-116); ANION GAP 9 (8-16); ASPARTATE AMINO TRANSFERASE 9 U/L (10-37); BILIRUBIN,TOTAL 0.3 MG/DL (0.1-1.0); BLOOD UREA NITROGEN 19 MG/DL (7-18); BUN/CREATININE RATIO 19.2 (10.0-20.0); CALCIUM 9.4 MG/DL (8.5-10.1); CHLORIDE 106 MMOL/L (99-107); CREATININE 0.99 MG/DL (0.40-0.90); GLUCOSE 136 MG/DL (70-104); MAGNESIUM 2.2 MG/DL (1.5-2.4); POTASSIUM 3.6 MMOL/L (3.5-5.1); SODIUM 141 MMOL/L (135-145); TOTAL CARBON DIOXIDE 26.5 MMOL/L (24-32); TOTAL PROTEIN 6.9 G/DL (6.4-8.2); eCRCL 58 ML/MIN; eGFR 56 ML/MIN
[2023-04-19] MEDS ORDERED: mag hydrox/Alum hydrox/simeth 30ml oral suspension PO PRN (22:50)
[2023-04-19] MEDS ORDERED: acetaminophen 325mg tablet PO PRN ×2 (22:50)
[2023-04-19] MEDS: normal saline 1000ml 1,000 ML IV SCH (22:50)
[2023-04-19] MEDS ORDERED: HYDROcodone/acetaminophen 5mg/325mg tablet PO PRN (22:50)
[2023-04-19] MEDS ORDERED: bisacodyl 10mg suppository rectal RC PRN (22:50)
[2023-04-19] MEDS ORDERED: acetaminophen 650mg rectal suppository RC PRN (22:50)
[2023-04-19 22:52] LABS: ETHANOL < 10 MG/DL (<10)
[2023-04-19 23:14] LABS: PHOSPHORUS 2.5 MG/DL (2.3-4.5); PRO BRAIN NATRIURETIC PEPTIDE 52 PG/ML (0-125)
[2023-04-19 23:40] LABS: VALPROATE 31 UG/ML (50-100)
[2023-04-19] MEDS ORDERED: MESSAGE TO PHARMACY PO ONE (23:40)
[2023-04-19] MEDS ORDERED: dextrose 50%-water 50ml dispensing syringe IV PRN ×2 (23:40)
[2023-04-19] MEDS ORDERED: insulin Lispro (HumaLOG) vial - multi-dose SQ SCH (23:40)
[2023-04-19] MEDS ORDERED: DEXTROSE 15 GM of carb/4 tabs (each vial/BOTTLE has 4 tablets) PO PRN ×2 (23:40)
[2023-04-19] MEDS ORDERED: glucagon, human recombinant 1mg kit SUBCUT PRN (23:40)
[2023-04-20] MEDS: HYDROcodone/acetaminophen 10/325mg tab PO PRN ×3 (01:08→20:53)
[2023-04-20 02:55] LABS: BILIRUBIN,URINE NEGATIVE (Neg); CLARITY,URINE CLOUDY (Clear); COLOR,URINE YELLOW (Yellow); GLUCOSE, URINE NEGATIVE (Neg); KETONES,URINE TRACE mg/dl (Neg); LEUKOCYTE ESTERASE ,URINE NEGATIVE (Neg); NITRITES, URINE NEGATIVE (Neg); OCCULT BLOOD,URINE NEGATIVE (Neg); PH,URINE 5.5 (4.8-8.0); PROTEIN,URINE TRACE mg/dl (Neg)
[2023-04-20 03:01] LABS: UA COLLECTION TYPE VOIDED
[2023-04-20 03:02] LABS: BACTERIA,URINE 3+ /HPF (Neg); RBC,URINE 0-2 /HPF (0-2); SQUAMOUS EPITHELIAL CELL,UR MANY /LPF (FEW); WBC,URINE 0-4 /HPF (0-4)
--- NOTE | 2023-04-20 03:02 | NUR ---
PLACED PT IN HOSP BED FOR COMFORT PEND ROOM AVAILABILITY
[2023-04-20 03:10] LABS: URINE AMPHETAMINE SCREEN NEGATIVE (Neg); URINE BARBITUATE SCREEN NEGATIVE (Neg); URINE BENZODIAZEPINES SCREEN NEGATIVE (Neg); URINE CANNABINOID SCREEN POSITIVE (Neg); URINE COCAINE SCREEN NEGATIVE (Neg); URINE METHADONE SCREEN NEGATIVE (Neg); URINE OPIATE SCREEN POSITIVE (Neg); URINE PHENCYCLIDINE SCREEN NEGATIVE (Neg)
--- NOTE | 2023-04-20 06:54 | NUR ---
Patient in room ED 9. I have received report from JUANA Sanders and had the opportunity to ask questions and assume patient care.
--- NOTE | 2023-04-20 07:05 | NUR ---
Patient in room ED 9. I have received report from Abdi and had the opportunity to ask questions and assume patient care.
[2023-04-20 07:56] LABS: EOSINOPHILS # (AUTO) 0.1 X10'3 (0-0.9); MONOCYTES # (AUTO) 0.4 X10'3 (0-0.9)
--- NOTE | 2023-04-20 08:18 | NUR ---
Received pt from ED via hospital bed. Pt A&Ox4. Pt on RA, oriented pt to room and equipment.
[2023-04-20 08:20] VITALS: BP 122/67; PULSE 90; RESP 17; TEMP 97.9; O2SAT 99
[2023-04-20 08:45] LABS: BASOPHILS % (AUTO) 0.9 % (0-1); EOSINOPHILS % (AUTO) 1.6 % (0-6); HEMATOCRIT 34.8 % (35.0-45.0); HEMOGLOBIN 11.7 g/dl (12.0-16.0); LYMPHOCYTES % (AUTO) 45.9 % (21-51); MEAN CORPUSCULAR HEMOGLOBIN 33.3 PG (27.0-31.0); MEAN CORPUSCULAR HGB CONC 33.7 g/dL (33.0-36.5); MEAN CORPUSCULAR VOLUME 98.8 FL (78-98); MEAN PLATELET VOLUME 7.9 FL (7.4-10.4); MONOCYTES % (AUTO) 8.9 % (2-12); NEUTROPHILS # (AUTO) 1.9 X10'3 (1.8-7.7); NEUTROPHILS % (AUTO) 42.7 % (42-75); PLATELET COUNT 203 X10'3 (140-440); RED BLOOD COUNT 3.52 X10'6 (4.20-5.60); WHITE BLOOD COUNT 4.4 X10'3 (4.5-11.0)
[2023-04-20] MEDS: normal saline 1000ml 1,000 ML IV SCH ×3 (08:50→23:14)
[2023-04-20 09:30] VITALS: RESP 16; O2SAT 96
[2023-04-20] MEDS: docusate sod 100mg capsule PO SCH ×2 (09:45→20:43)
[2023-04-20 10:31] VITALS: BP 125/61; PULSE 87; RESP 16; TEMP 98.6; O2SAT 96
[2023-04-20 10:33] LABS: ALANINE AMINOTRANSFERASE 10 U/L (12-78); ALBUMIN 2.9 G/DL (3.4-5.0); ALKALINE PHOSPHATASE 77 IU/L (46-116); ANION GAP 4 (8-16); ASPARTATE AMINO TRANSFERASE 11 U/L (10-37); BILIRUBIN,TOTAL 0.3 MG/DL (0.1-1.0); BLOOD UREA NITROGEN 17 MG/DL (7-18); BUN/CREATININE RATIO 22.4 (10.0-20.0); CALCIUM 8.3 MG/DL (8.5-10.1); CHLORIDE 110 MMOL/L (99-107); CHOL/HDL RATIO 3.7 (0.00-4.99); CHOLESTEROL 119 MG/DL (0-200); CREATININE 0.76 MG/DL (0.40-0.90); GLUCOSE 120 MG/DL (70-104); HDL CHOLESTEROL 32 MG/DL (35-60); LDL CHOLESTEROL 61 MG/DL (50-100); POTASSIUM 3.6 MMOL/L (3.5-5.1); SODIUM 140 MMOL/L (135-145); TOTAL PROTEIN 5.7 G/DL (6.4-8.2); TRIGLYCERIDES 122 MG/DL (20-135); eCRCL 75 ML/MIN; eGFR 77 ML/MIN
--- NOTE | 2023-04-20 12:19 | NUR ---
PRESSURE ULCER EDUCATION: DEFINITION: A pressure ulcer is an area of skin that breaks down when you stay in one position too long. The constant pressure against the skin reduces the blood flow to that area and the affected tissue dies. CAUSES: "Being bedridden or in a wheelchair "Fragile skin "Having a chronic condition, such as diabetes or vascular disease "Inability to move certain parts of your body without assistance "Older age "Incontinence of urine or stool SYMPTOMS: "A reddened area that DOES NOT turn white when pressed on - this can be the beginning of a pressure ulcer "A blister, deep sore or a crater - these can be advanced pressure ulcers FIRST AID: "Relieve the pressure on this area "Keep the area clean and dry "Call your primary doctor if you see any of the above symptoms "DO NOT massage the area "DO NOT use a donut shaped or ring shaped pillow- these actually interfere with the blood flow and cause complications PREVENTION: "Check for pressure ulcers everyday "Change position at least every two hours to relieve pressure "Use items that help relieve pressure- pillows, sheepskin, foam padding, and powders. "Keep skin clean and dry "Eat healthy well balanced meals "Exercise daily IF YOU SEE ANY OF THESE SYMPTOMS WHILE IN THE HOSPITAL - TELL YOUR NURSE IMMEDIATELY. IF YOU SEE ANY OF THESE SYMPTOMS WHILE AT HOME OR HAVE ANY QUESTIONS OR CONCERNS ABOUT PRESSURE ULCERS - CALL YOUR PRIMARY DOCTOR IMMEDIATELY. Addendum: 04/20/23 at 1220 by Logan Moura RN Amended: Links added.
[2023-04-20] MEDS: morphine 2 MG/ML inj. syringe IV PRN ×2 (12:54→17:04)
[2023-04-20] MEDS: heparin, porcine 5000 units/ml vial SQ SCH ×2 (12:56→20:43)
[2023-04-20] MEDS ORDERED: INSU100V9 SQ (14:43)
[2023-04-20] MEDS ORDERED: INSU100V11 SQ (14:46)
[2023-04-20] MEDS: ondansetron/PF 4mg/2ml inj IV PRN (14:47)
--- NOTE | 2023-04-20 14:49 | NUR ---
PAGER ID: [phone] MESSAGE: Florinda Kumar in [id number] needs home meds ordered, specifically Keppra. Pt feels a seizure might be coming on. -Cari [phone]
[2023-04-20 18:00] VITALS: BP 129/56; PULSE 87; RESP 18; TEMP 97.9; O2SAT 98
--- NOTE | 2023-04-20 18:00 | NUR ---
Patient in room ORTHO 4009. I have received report from LILY ARIAS and had the opportunity to ask questions and assume patient care.
--- NOTE | 2023-04-20 18:07 | NUR ---
Problems reprioritized. Patient report given, questions answered & plan of care reviewed with JUANA Kurtz.
--- NOTE | 2023-04-20 18:32 | NUR ---
Problems reprioritized. Patient report given, questions answered & plan of care reviewed with
[2023-04-20] MEDS: lactose-reduced food (Ensure Enlive) - 237ml bottle PO SCH (19:00)
[2023-04-20 20:00] VITALS: RESP 16; O2SAT 98
[2023-04-20] MEDS: levetiracetam 250mg tablet PO SCH (20:44)
[2023-04-20] MEDS: nystatin 15 GM powder TP SCH (20:44)
[2023-04-20] MEDS: insulin glargine (Lantus) pen - multi-dose SQ SCH (20:45)
--- NOTE | 2023-04-20 21:14 | NUR ---
3262s Florinda Kumar ext [id number] Pt had a focal seizure about 3 minutes. She has a long history of seizures. She is now alert and oriented and speaking to us. Do you want us to do anything more? Thanks Tessie Addendum: 04/21/23 at 0345 by Ara Pizano RN Per dr nice give pt ativn 1mg q5min x3 for seizures if it happens again
[2023-04-20] MEDS ORDERED: ondansetron 4mg rapidly disintigrating tab PO PRN (21:15)
[2023-04-20] MEDS ORDERED: ipratropium/albuterol 3ml nebule IH PRN (21:15)
[2023-04-20] MEDS ORDERED: LIPASE/PROTEASE/AMYLASE 16,800 UNIT CAPSULE.DR PO PRN (21:25)
[2023-04-20] MEDS ORDERED: atorvastatin 20mg tablet PO ONE (21:30)
[2023-04-20] MEDS ORDERED: prazosin 5mg capsule PO ONE (21:30)
[2023-04-20] MEDS ORDERED: metoprolol tartrate 12.5mg (1/2 tablet) PO ONE (21:35)
[2023-04-20] MEDS ORDERED: QUETIAPINE 150 MG TAB.SR.24H PO ONE (21:35)
[2023-04-20] MEDS ORDERED: mirtazapine 15mg tablet PO ONE (21:35)
[2023-04-20] MEDS ORDERED: LORazepam 2 mg/ml vial IV ONE (21:35)
[2023-04-20] MEDS ORDERED: busPIRone 15mg tablet PO ONE (21:35)
[2023-04-20] MEDS ORDERED: LORazepam 2 mg/ml vial IV PRN (21:55)
[2023-04-20 22:00] VITALS: BP 139/53; PULSE 94; RESP 16; TEMP 97.6; O2SAT 98
[2023-04-21] VITALS (15 sets, daily range): BP systolic 102–131; BP diastolic 45–97; PULSE 74–94; RESP 15–16; TEMP 96.8–98.7; O2SAT 94–98
[2023-04-21] MEDS: HYDROcodone/acetaminophen 10/325mg tab PO PRN ×3 (00:55→20:22)
[2023-04-21] MEDS: ipratropium 0.5 MG/2.5ML nebule IH SCH ×4 (03:25→20:35)
--- NOTE | 2023-04-21 06:24 | NUR ---
Patient in room ORTHO 4009. I have received report from Tessie and had the opportunity to ask questions and assume patient care.
[2023-04-21 06:56] LABS: BASOPHILS % (AUTO) 0.8 % (0-1); EOSINOPHILS # (AUTO) 0.1 X10'3 (0-0.9); EOSINOPHILS % (AUTO) 2.5 % (0-6); HEMOGLOBIN 10.8 g/dl (12.0-16.0); LYMPHOCYTES # (AUTO) 1.5 X10'3 (1.1-4.8); LYMPHOCYTES % (AUTO) 51.1 % (21-51); MEAN CORPUSCULAR HEMOGLOBIN 33.6 PG (27.0-31.0); MEAN CORPUSCULAR HGB CONC 33.8 g/dL (33.0-36.5); MEAN CORPUSCULAR VOLUME 99.5 FL (78-98); MEAN PLATELET VOLUME 7.9 FL (7.4-10.4); MONOCYTES # (AUTO) 0.3 X10'3 (0-0.9); MONOCYTES % (AUTO) 8.5 % (2-12); NEUTROPHILS # (AUTO) 1.1 X10'3 (1.8-7.7); NEUTROPHILS % (AUTO) 37.1 % (42-75); PLATELET COUNT 178 X10'3 (140-440); RED BLOOD COUNT 3.22 X10'6 (4.20-5.60); RED CELL DISTRIBUTION WIDTH 13.8 % (11.5-14.5)
[2023-04-21 07:17] LABS: ALANINE AMINOTRANSFERASE 11 U/L (12-78); ALBUMIN 2.5 G/DL (3.4-5.0); ALKALINE PHOSPHATASE 75 IU/L (46-116); ANION GAP 8 (8-16); ASPARTATE AMINO TRANSFERASE 7 U/L (10-37); BILIRUBIN,TOTAL 0.2 MG/DL (0.1-1.0); BLOOD UREA NITROGEN 12 MG/DL (7-18); BUN/CREATININE RATIO 15.2 (10.0-20.0); CALCIUM 7.9 MG/DL (8.5-10.1); CHLORIDE 110 MMOL/L (99-107); CREATININE 0.79 MG/DL (0.40-0.90); GLUCOSE 157 MG/DL (70-104); SODIUM 145 MMOL/L (135-145); eCRCL 73 ML/MIN; eGFR 73 ML/MIN
[2023-04-21 07:50] LABS: PLATELET ESTIMATE NORMAL; TOTAL CELLS COUNTED 100
[2023-04-21] MEDS ORDERED: levetiracetam 250mg tablet PO SCH (08:00)
[2023-04-21] MEDS ORDERED: insulin Lispro (HumaLOG) vial - multi-dose SQ SCH (08:00)
[2023-04-21] MEDS: docusate sod 100mg capsule PO SCH ×2 (08:00→20:22)
[2023-04-21] MEDS: DICLOFENAC SODIUM 1% gel 1 APPLIC APPLIC TP SCH ×4 (08:03→21:13)
[2023-04-21] MEDS: sucralfate 1 gm tablet PO SCH ×2 (08:03→17:38)
[2023-04-21] MEDS: metoprolol tartrate 12.5mg (1/2 tablet) PO SCH ×2 (08:04→20:21)
[2023-04-21] MEDS: divalproex 250mg tablet, delayed-release PO SCH ×2 (08:05→20:22)
[2023-04-21] MEDS: levetiracetam 250mg tablet PO SCH ×2 (08:05→20:21)
[2023-04-21] MEDS: venlafaxine XR 75mg capsule (Q24H) PO SCH (08:06)
[2023-04-21] MEDS: busPIRone 15mg tablet PO SCH ×2 (08:06→20:22)
[2023-04-21] MEDS: ferrous sulfate 325mg tablet PO SCH ×2 (08:07→20:22)
[2023-04-21] MEDS: pantoprazole 40mg Tablet.DR PO SCH (08:07)
[2023-04-21] MEDS: heparin, porcine 5000 units/ml vial SQ SCH ×2 (08:08→20:21)
[2023-04-21] MEDS: nystatin 15 GM powder TP SCH ×2 (08:11→20:23)
[2023-04-21] MEDS: morphine 2 MG/ML inj. syringe IV PRN (15:08)
[2023-04-21] MEDS: normal saline 1000ml 1,000 ML IV SCH (16:21)
--- NOTE | 2023-04-21 17:10 | NUR ---
Malnutrition consult: Per RN malnutrition screen, pt reports 2-13 pound wt loss and a decreased PO intake. Pt seen at bedside during time of visit and reports no changes in eating habits or appetite STOCK LAYER. Pt is currently on a carbohydrate controlled diet with average PO intake of 53% x 4 meals. Pt request Ensure Enlive chocolate as she tries to drink them when she can. Due to fluctuating intake, recommend Ensure Enlive BID to help better meet estimated needs; MD notified. Will continue to monitor PO intake and need for ONS. Pt reports UBW of 252 pounds which is current non scaled wt in EMR, pending scaled wt this admit. Pt appeared physically nourished and no signs of muscle or fat wasting at this time. Pt does not meet a minimum of two malnutrition criteria at this time. Will continue to monitor. Recommendations: 1.Per pt request Ensure Enlive BID to better meet estimate needs 2.Monitor PO intake and need for ONS 3.routine bowel care 4scaled wt this admit;subsequent weekly scaled wt Addendum: 04/21/23 at [address] Amended: Links added.
--- NOTE | 2023-04-21 18:10 | NUR ---
Patient in room ORTHO 4009. I have received report from Cari ARIAS and had the opportunity to ask questions and assume patient care.
--- NOTE | 2023-04-21 18:19 | NUR ---
Problems reprioritized. Patient report given, questions answered & plan of care reviewed with
[2023-04-21] MEDS ORDERED: INSULIN GLARGINE HUM REC ANLOG 25 UNIT SQ SCH (21:00)
[2023-04-21] MEDS: insulin glargine (Lantus) pen - multi-dose SQ SCH (21:00)
[2023-04-21] MEDS ORDERED: QUETIAPINE 50 MG TAB.SR.24H PO SCH (21:00)
[2023-04-21] MEDS: QUETIAPINE 150 MG TAB.SR.24H PO SCH (21:07)
[2023-04-21] MEDS: atorvastatin 20mg tablet PO SCH (21:07)
[2023-04-21] MEDS: mirtazapine 15mg tablet PO SCH (21:07)
[2023-04-21] MEDS: prazosin 5mg capsule PO SCH (21:07)
[2023-04-22] VITALS (16 sets, daily range): BP systolic 134–158; BP diastolic 56–77; PULSE 75–96; RESP 12–18; TEMP 97.6–98.1; O2SAT 92–97
[2023-04-22] MEDS: normal saline 1000ml 1,000 ML IV SCH ×3 (00:15→20:59)
[2023-04-22] MEDS: morphine 2 MG/ML inj. syringe IV PRN ×2 (01:08→16:06)
[2023-04-22] MEDS: ipratropium 0.5 MG/2.5ML nebule IH SCH ×4 (02:22→21:17)
--- NOTE | 2023-04-22 06:50 | NUR ---
Patient in room ORTHO 4009. I have received report from Jackelyn and had the opportunity to ask questions and assume patient care.
[2023-04-22] MEDS: sucralfate 1 gm tablet PO SCH ×2 (07:28→17:23)
[2023-04-22] MEDS: busPIRone 15mg tablet PO SCH ×2 (07:28→19:12)
[2023-04-22] MEDS: docusate sod 100mg capsule PO SCH ×2 (07:28→19:12)
[2023-04-22] MEDS: ferrous sulfate 325mg tablet PO SCH ×2 (07:29→19:12)
[2023-04-22] MEDS: divalproex 250mg tablet, delayed-release PO SCH ×2 (07:29→19:12)
[2023-04-22] MEDS: levetiracetam 250mg tablet PO SCH ×2 (07:29→19:12)
[2023-04-22] MEDS: venlafaxine XR 75mg capsule (Q24H) PO SCH (07:29)
[2023-04-22] MEDS: metoprolol tartrate 12.5mg (1/2 tablet) PO SCH ×2 (07:30→19:13)
[2023-04-22] MEDS: heparin, porcine 5000 units/ml vial SQ SCH ×2 (07:31→19:14)
[2023-04-22] MEDS: nystatin 15 GM powder TP SCH ×2 (07:31→19:15)
[2023-04-22] MEDS: pantoprazole 40mg Tablet.DR PO SCH (07:31)
[2023-04-22] MEDS: HYDROcodone/acetaminophen 10/325mg tab PO PRN ×3 (07:32→19:14)
[2023-04-22] MEDS: DICLOFENAC SODIUM 1% gel 1 APPLIC APPLIC TP SCH ×4 (07:32→21:00)
[2023-04-22 08:50] LABS: BASOPHILS % (AUTO) 0.5 % (0-1); EOSINOPHILS # (AUTO) 0.1 X10'3 (0-0.9); EOSINOPHILS % (AUTO) 2.4 % (0-6); HEMATOCRIT 34.4 % (35.0-45.0); HEMOGLOBIN 11.5 g/dl (12.0-16.0); LYMPHOCYTES % (AUTO) 57.3 % (21-51); MEAN CORPUSCULAR HEMOGLOBIN 33.5 PG (27.0-31.0); MEAN CORPUSCULAR HGB CONC 33.5 g/dL (33.0-36.5); MEAN CORPUSCULAR VOLUME 100.2 FL (78-98); MEAN PLATELET VOLUME 7.5 FL (7.4-10.4); MONOCYTES # (AUTO) 0.2 X10'3 (0-0.9); MONOCYTES % (AUTO) 6.9 % (2-12); NEUTROPHILS # (AUTO) 1.1 X10'3 (1.8-7.7); NEUTROPHILS % (AUTO) 32.9 % (42-75); PLATELET COUNT 183 X10'3 (140-440); RED BLOOD COUNT 3.43 X10'6 (4.20-5.60); RED CELL DISTRIBUTION WIDTH 13.3 % (11.5-14.5); WHITE BLOOD COUNT 3.5 X10'3 (4.5-11.0)
[2023-04-22 09:17] LABS: ALANINE AMINOTRANSFERASE 9 U/L (12-78); ALBUMIN 2.5 G/DL (3.4-5.0); ALBUMIN/GLOBULIN RATIO 0.9 (1.1-1.5); ALKALINE PHOSPHATASE 66 IU/L (46-116); ANION GAP 6 (8-16); BILIRUBIN,TOTAL 0.2 MG/DL (0.1-1.0); BLOOD UREA NITROGEN 8 MG/DL (7-18); BUN/CREATININE RATIO 11.3 (10.0-20.0); CALCIUM 8.1 MG/DL (8.5-10.1); CHLORIDE 109 MMOL/L (99-107); CREATININE 0.71 MG/DL (0.40-0.90); GLUCOSE 170 MG/DL (70-104); SODIUM 142 MMOL/L (135-145); TOTAL CARBON DIOXIDE 26.7 MMOL/L (24-32); TOTAL PROTEIN 5.3 G/DL (6.4-8.2); eCRCL 81 ML/MIN; eGFR 83 ML/MIN
[2023-04-22 09:27] LABS: ASPARTATE AMINO TRANSFERASE 6 U/L (10-37)
[2023-04-22] MEDS: lactose-reduced food (Ensure Enlive) - 237ml bottle PO SCH ×2 (12:30→17:30)
--- NOTE | 2023-04-22 18:26 | NUR ---
Problems reprioritized. Patient report given, questions answered & plan of care reviewed with Albertina.
--- NOTE | 2023-04-22 19:45 | NUR ---
Pt had a seizure lasting approx 1 min. Ativan was given per order. Pt c/o post headache that went away quickly. No other complaints. VS stable and documented.
[2023-04-22] MEDS: prazosin 5mg capsule PO SCH (21:00)
[2023-04-22] MEDS: mirtazapine 15mg tablet PO SCH (21:00)
[2023-04-22] MEDS: atorvastatin 20mg tablet PO SCH (21:00)
[2023-04-22] MEDS: QUETIAPINE 150 MG TAB.SR.24H PO SCH (21:00)
[2023-04-22] MEDS: insulin glargine (Lantus) pen - multi-dose SQ SCH (21:00)
[2023-04-23] VITALS (12 sets, daily range): BP systolic 113–153; BP diastolic 56–79; PULSE 70–95; RESP 14–20; TEMP 97.3–98.2; O2SAT 91–98
[2023-04-23] MEDS: ipratropium 0.5 MG/2.5ML nebule IH SCH ×4 (02:59→21:06)
[2023-04-23] MEDS: normal saline 1000ml 1,000 ML IV SCH ×2 (06:02→16:50)
[2023-04-23] MEDS: HYDROcodone/acetaminophen 10/325mg tab PO PRN ×3 (06:04→17:06)
--- NOTE | 2023-04-23 06:29 | NUR ---
Problems reprioritized. Patient report given, questions answered & plan of care reviewed with Wendi. Addendum: 04/23/23 at 0629 by Albertina Adams RN Amended: Links added.
[2023-04-23 07:09] LABS: BASOPHILS % (AUTO) 0.6 % (0-1); EOSINOPHILS # (AUTO) 0.1 X10'3 (0-0.9); HEMATOCRIT 33.5 % (35.0-45.0); HEMOGLOBIN 11.2 g/dl (12.0-16.0); LYMPHOCYTES # (AUTO) 1.7 X10'3 (1.1-4.8); LYMPHOCYTES % (AUTO) 54.2 % (21-51); MEAN CORPUSCULAR HEMOGLOBIN 33.2 PG (27.0-31.0); MEAN CORPUSCULAR HGB CONC 33.4 g/dL (33.0-36.5); MEAN CORPUSCULAR VOLUME 99.5 FL (78-98); MEAN PLATELET VOLUME 7.3 FL (7.4-10.4); MONOCYTES # (AUTO) 0.2 X10'3 (0-0.9); MONOCYTES % (AUTO) 5.8 % (2-12); NEUTROPHILS # (AUTO) 1.1 X10'3 (1.8-7.7); NEUTROPHILS % (AUTO) 36.4 % (42-75); PLATELET COUNT 187 X10'3 (140-440); RED BLOOD COUNT 3.36 X10'6 (4.20-5.60); RED CELL DISTRIBUTION WIDTH 13.6 % (11.5-14.5); WHITE BLOOD COUNT 3.1 X10'3 (4.5-11.0)
[2023-04-23 07:43] LABS: ALANINE AMINOTRANSFERASE 9 U/L (12-78); ALBUMIN 2.4 G/DL (3.4-5.0); ALKALINE PHOSPHATASE 60 IU/L (46-116); ANION GAP 6 (8-16); ASPARTATE AMINO TRANSFERASE 7 U/L (10-37); BILIRUBIN,TOTAL 0.1 MG/DL (0.1-1.0); BLOOD UREA NITROGEN 8 MG/DL (7-18); BUN/CREATININE RATIO 12.5 (10.0-20.0); CHLORIDE 111 MMOL/L (99-107); CREATININE 0.64 MG/DL (0.40-0.90); GLUCOSE 136 MG/DL (70-104); POTASSIUM 3.7 MMOL/L (3.5-5.1); SODIUM 146 MMOL/L (135-145); TOTAL PROTEIN 4.9 G/DL (6.4-8.2); eCRCL 90 ML/MIN; eGFR > 90 ML/MIN
[2023-04-23] MEDS: divalproex 250mg tablet, delayed-release PO SCH ×2 (07:54→21:17)
[2023-04-23] MEDS: venlafaxine XR 75mg capsule (Q24H) PO SCH (07:54)
[2023-04-23] MEDS: ferrous sulfate 325mg tablet PO SCH ×2 (07:54→21:18)
[2023-04-23] MEDS: busPIRone 15mg tablet PO SCH ×2 (07:55→21:15)
[2023-04-23] MEDS: docusate sod 100mg capsule PO SCH ×2 (07:55→21:25)
[2023-04-23] MEDS: pantoprazole 40mg Tablet.DR PO SCH (07:55)
[2023-04-23] MEDS: levetiracetam 250mg tablet PO SCH ×2 (07:55→21:19)
[2023-04-23] MEDS: metoprolol tartrate 12.5mg (1/2 tablet) PO SCH ×2 (07:56→21:21)
[2023-04-23] MEDS: DICLOFENAC SODIUM 1% gel 1 APPLIC APPLIC TP SCH ×3 (08:00→21:00)
[2023-04-23] MEDS: heparin, porcine 5000 units/ml vial SQ SCH ×2 (08:00→21:32)
[2023-04-23] MEDS: nystatin 15 GM powder TP SCH ×2 (08:00→21:20)
[2023-04-23] MEDS: sucralfate 1 gm tablet PO SCH ×2 (11:47→17:05)
[2023-04-23] MEDS: lactose-reduced food (Ensure Enlive) - 237ml bottle PO SCH ×2 (12:30→17:30)
--- NOTE | 2023-04-23 18:15 | NUR ---
Patient in room ORTHO 4009. I have received report from Wendi LUCIA and had the opportunity to ask questions and assume patient care.
[2023-04-23] MEDS: insulin glargine (Lantus) pen - multi-dose SQ SCH (21:00)
[2023-04-23] MEDS: ondansetron/PF 4mg/2ml inj IV PRN (21:07)
[2023-04-23] MEDS: morphine 2 MG/ML inj. syringe IV PRN (21:14)
[2023-04-23] MEDS: mirtazapine 15mg tablet PO SCH (21:20)
[2023-04-23] MEDS: QUETIAPINE 150 MG TAB.SR.24H PO SCH (21:21)
[2023-04-23] MEDS: atorvastatin 20mg tablet PO SCH (21:22)
[2023-04-23] MEDS: prazosin 5mg capsule PO SCH (21:22)
[2023-04-24] VITALS (12 sets, daily range): BP systolic 115–152; BP diastolic 52–63; PULSE 80–89; RESP 14–20; TEMP 97.6–98.7; O2SAT 93–96
[2023-04-24] MEDS: normal saline 1000ml 1,000 ML IV SCH ×3 (01:44→22:50)
[2023-04-24] MEDS: HYDROcodone/acetaminophen 10/325mg tab PO PRN ×4 (02:18→21:31)
[2023-04-24] MEDS: magnesium hydroxide 30ml (MOM) UD suspension PO PRN ×2 (02:19→21:37)
[2023-04-24] MEDS: ipratropium 0.5 MG/2.5ML nebule IH SCH ×4 (03:35→21:00)
--- NOTE | 2023-04-24 06:30 | NUR ---
Problems reprioritized. Patient report given, questions answered & plan of care reviewed with Wendi LUCIA.
[2023-04-24 07:43] LABS: BASOPHILS % (AUTO) 0.6 % (0-1); EOSINOPHILS # (AUTO) 0.1 X10'3 (0-0.9); EOSINOPHILS % (AUTO) 3.4 % (0-6); HEMATOCRIT 32.1 % (35.0-45.0); HEMOGLOBIN 10.8 g/dl (12.0-16.0); LYMPHOCYTES # (AUTO) 1.8 X10'3 (1.1-4.8); LYMPHOCYTES % (AUTO) 53.6 % (21-51); MEAN CORPUSCULAR HEMOGLOBIN 33.7 PG (27.0-31.0); MEAN CORPUSCULAR HGB CONC 33.8 g/dL (33.0-36.5); MEAN CORPUSCULAR VOLUME 99.7 FL (78-98); MEAN PLATELET VOLUME 7.1 FL (7.4-10.4); MONOCYTES # (AUTO) 0.2 X10'3 (0-0.9); MONOCYTES % (AUTO) 6.1 % (2-12); NEUTROPHILS # (AUTO) 1.2 X10'3 (1.8-7.7); NEUTROPHILS % (AUTO) 36.3 % (42-75); PLATELET COUNT 196 X10'3 (140-440); RED BLOOD COUNT 3.22 X10'6 (4.20-5.60); RED CELL DISTRIBUTION WIDTH 13.7 % (11.5-14.5); WHITE BLOOD COUNT 3.3 X10'3 (4.5-11.0)
[2023-04-24 07:54] LABS: ALANINE AMINOTRANSFERASE 11 U/L (12-78); ALBUMIN 2.4 G/DL (3.4-5.0); ALBUMIN/GLOBULIN RATIO 0.9 (1.1-1.5); ALKALINE PHOSPHATASE 61 IU/L (46-116); ANION GAP 3 (8-16); ASPARTATE AMINO TRANSFERASE 5 U/L (10-37); BILIRUBIN,TOTAL 0.1 MG/DL (0.1-1.0); BLOOD UREA NITROGEN 12 MG/DL (7-18); BUN/CREATININE RATIO 19.4 (10.0-20.0); CALCIUM 8.3 MG/DL (8.5-10.1); CHLORIDE 109 MMOL/L (99-107); CREATININE 0.62 MG/DL (0.40-0.90); GLUCOSE 132 MG/DL (70-104); POTASSIUM 3.8 MMOL/L (3.5-5.1); SODIUM 142 MMOL/L (135-145); TOTAL CARBON DIOXIDE 29.7 MMOL/L (24-32); eCRCL 92 ML/MIN; eGFR > 90 ML/MIN
[2023-04-24] MEDS: pantoprazole 40mg Tablet.DR PO SCH (07:54)
[2023-04-24] MEDS: ferrous sulfate 325mg tablet PO SCH ×2 (07:54→21:33)
[2023-04-24] MEDS: divalproex 250mg tablet, delayed-release PO SCH ×2 (07:55→21:33)
[2023-04-24] MEDS: sucralfate 1 gm tablet PO SCH ×2 (07:56→15:42)
[2023-04-24] MEDS: metoprolol tartrate 12.5mg (1/2 tablet) PO SCH ×2 (07:56→21:34)
[2023-04-24] MEDS: levetiracetam 250mg tablet PO SCH ×2 (07:56→21:36)
[2023-04-24] MEDS: venlafaxine XR 75mg capsule (Q24H) PO SCH (07:56)
[2023-04-24] MEDS: busPIRone 15mg tablet PO SCH ×2 (07:57→21:32)
[2023-04-24] MEDS: DICLOFENAC SODIUM 1% gel 1 APPLIC APPLIC TP SCH ×4 (08:00→21:00)
[2023-04-24] MEDS: nystatin 15 GM powder TP SCH ×2 (08:00→21:35)
[2023-04-24] MEDS: heparin, porcine 5000 units/ml vial SQ SCH ×2 (08:12→21:36)
[2023-04-24] MEDS: docusate sod 100mg capsule PO SCH ×2 (08:12→21:32)
[2023-04-24] MEDS: morphine 2 MG/ML inj. syringe IV PRN (10:11)
[2023-04-24] MEDS: lactose-reduced food (Ensure Enlive) - 237ml bottle PO SCH ×2 (12:30→18:04)
--- NOTE | 2023-04-24 15:27 | NUR ---
Initial: Pt admit for a mechanical fall, chronic right hip fracture in exacerbation per EMR. 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 Pt is currently on a carbohydrate controlled diet with average PO intake of 85% x 13 meals and with Ensure Enlive BID average intake 100%x 2 meals. PO intake and ONS met 100% of kcals and 100% of protein. Given no longer fluctuation in PO intake 100% x last 5 meals. ONS is not longer warranted; d/w HAT SPRAYER. LBM on 04/20 receiving routine colace and PRN MoM today 04/24 per EMR. Will continue to follow. Recommendations: 1.continue carbohydrate controlled diet given no new A1c this admit and prior A1c of 8.1% on 02/23/23 2.discontinue Ensure Enlive BID given adequate PO intake, ONS no longer needed 3.routine bowel care 4. scaled wt this admit;subsequent weekly scaled wt Addendum: 04/24/23 at [address] Amended: Links added.
--- NOTE | 2023-04-24 18:00 | NUR ---
I have reviewed and agree with interventions, assessments, and documentation by Wendi Gomez LVN.
--- NOTE | 2023-04-24 18:30 | NUR ---
Patient in room ORTHO 4009. I have received report from Wendi LUCIA and had the opportunity to ask questions and assume patient care.
[2023-04-24] MEDS: insulin glargine (Lantus) pen - multi-dose SQ SCH (21:00)
[2023-04-24] MEDS: prazosin 5mg capsule PO SCH (21:35)
[2023-04-24] MEDS: mirtazapine 15mg tablet PO SCH (21:35)
[2023-04-24] MEDS: atorvastatin 20mg tablet PO SCH (21:35)
[2023-04-24] MEDS: QUETIAPINE 150 MG TAB.SR.24H PO SCH (21:41)
[2023-04-24] MEDS: ondansetron 4mg rapidly disintigrating tab PO PRN (22:40)
--- NOTE | 2023-04-24 23:30 | NUR ---
Patient has had 3 large inc thus far and states that she still feels like she has to go. Bladder scan revealed 725cc. SbA to bathroom and Patient voided 700cc. Patient denies having any burning or itching sensation. Will continue to momitor.
[2023-04-25] VITALS (12 sets, daily range): BP systolic 103–144; BP diastolic 51–75; PULSE 75–95; RESP 14–19; TEMP 97.2–98.6; O2SAT 91–96
[2023-04-25] MEDS: HYDROcodone/acetaminophen 10/325mg tab PO PRN ×4 (01:40→21:35)
[2023-04-25] MEDS: ipratropium 0.5 MG/2.5ML nebule IH SCH ×4 (03:08→20:46)
[2023-04-25] MEDS: normal saline 1000ml 1,000 ML IV SCH ×2 (05:19→18:50)
--- NOTE | 2023-04-25 06:28 | NUR ---
Problems reprioritized. Patient report given, questions answered & plan of care reviewed with Wendi LUCIA.
[2023-04-25] MEDS: sucralfate 1 gm tablet PO SCH ×2 (07:00→17:30)
[2023-04-25] MEDS: DICLOFENAC SODIUM 1% gel 1 APPLIC APPLIC TP SCH ×4 (08:00→21:38)
[2023-04-25] MEDS: venlafaxine XR 75mg capsule (Q24H) PO SCH (08:27)
[2023-04-25] MEDS: magnesium hydroxide 30ml (MOM) UD suspension PO PRN (08:27)
[2023-04-25] MEDS: metoprolol tartrate 12.5mg (1/2 tablet) PO SCH ×2 (08:28→20:00)
[2023-04-25] MEDS: heparin, porcine 5000 units/ml vial SQ SCH ×2 (08:28→21:38)
[2023-04-25] MEDS: ferrous sulfate 325mg tablet PO SCH ×2 (08:28→21:37)
[2023-04-25] MEDS: docusate sod 100mg capsule PO SCH ×2 (08:29→21:37)
[2023-04-25] MEDS: busPIRone 15mg tablet PO SCH ×2 (08:29→21:37)
[2023-04-25] MEDS: pantoprazole 40mg Tablet.DR PO SCH (08:29)
[2023-04-25] MEDS: divalproex 250mg tablet, delayed-release PO SCH ×2 (08:29→21:37)
[2023-04-25] MEDS: levetiracetam 250mg tablet PO SCH ×2 (08:30→21:36)
[2023-04-25] MEDS: nystatin 15 GM powder TP SCH ×2 (08:32→21:38)
[2023-04-25] MEDS ORDERED: bisacodyl 10mg suppository rectal RC PRN (11:55)
[2023-04-25] MEDS: lactose-reduced food (Ensure Enlive) - 237ml bottle PO SCH ×2 (12:30→17:42)
[2023-04-25] MEDS: ondansetron 4mg rapidly disintigrating tab PO PRN (15:13)
--- NOTE | 2023-04-25 16:19 | NUR ---
I have reviewed and agree with interventions, assessments, and documentation by Wendi Gomez LVN.
--- NOTE | 2023-04-25 18:00 | NUR ---
I have reviewed and agree with interventions, assessments, and documentation by Wendi Gomez LVN.
--- NOTE | 2023-04-25 18:30 | NUR ---
Patient in room ORTHO 4009. I have received report from Wendi LUCIA and had the opportunity to ask questions and assume patient care.
--- NOTE | 2023-04-25 19:00 | NUR ---
Ok for no sitter, Mental health cleared her. will dc home in am. Spoke with Dr. Hanna.
--- NOTE | 2023-04-25 20:00 | NUR ---
Agree with Sharmaine Olivier Mortgage Collector assessment except what I charted.
[2023-04-25] MEDS: insulin glargine (Lantus) pen - multi-dose SQ SCH (21:00)
[2023-04-25] MEDS: mirtazapine 15mg tablet PO SCH (21:36)
[2023-04-25] MEDS: QUETIAPINE 150 MG TAB.SR.24H PO SCH (21:36)
[2023-04-25] MEDS: atorvastatin 20mg tablet PO SCH (21:36)
[2023-04-25] MEDS: prazosin 5mg capsule PO SCH (21:39)
[2023-04-26] VITALS (7 sets, daily range): BP systolic 110–138; BP diastolic 50–65; PULSE 61–91; RESP 12–18; TEMP 97.6–98.1; O2SAT 90–96
[2023-04-26] MEDS: ipratropium 0.5 MG/2.5ML nebule IH SCH ×2 (03:00→07:59)
[2023-04-26] MEDS: HYDROcodone/acetaminophen 10/325mg tab PO PRN ×2 (03:31→10:20)
--- NOTE | 2023-04-26 06:00 | NUR ---
Patient in room ORTHO 4009. I have received report from Cachorro and had the opportunity to ask questions and assume patient care.
--- NOTE | 2023-04-26 06:54 | NUR ---
Problems reprioritized. Patient report given, questions answered & plan of care reviewed with Misty LUCIA.
[2023-04-26] MEDS: DICLOFENAC SODIUM 1% gel 1 APPLIC APPLIC TP SCH (08:00)
[2023-04-26] MEDS: metoprolol tartrate 12.5mg (1/2 tablet) PO SCH (08:00)
[2023-04-26] MEDS: docusate sod 100mg capsule PO SCH (08:35)
[2023-04-26] MEDS: pantoprazole 40mg Tablet.DR PO SCH (08:35)
[2023-04-26] MEDS: divalproex 250mg tablet, delayed-release PO SCH (08:35)
[2023-04-26] MEDS: ferrous sulfate 325mg tablet PO SCH (08:36)
[2023-04-26] MEDS: venlafaxine XR 75mg capsule (Q24H) PO SCH (08:38)
[2023-04-26] MEDS: sucralfate 1 gm tablet PO SCH (08:39)
[2023-04-26] MEDS: levetiracetam 250mg tablet PO SCH (08:39)
[2023-04-26] MEDS: busPIRone 15mg tablet PO SCH (08:39)
[2023-04-26] MEDS: nystatin 15 GM powder TP SCH (08:41)
[2023-04-26] MEDS: heparin, porcine 5000 units/ml vial SQ SCH (08:41)
[2023-04-26 13:22] LABS: ALANINE AMINOTRANSFERASE 14 U/L (12-78); ALBUMIN 2.8 G/DL (3.4-5.0); ALBUMIN/GLOBULIN RATIO 0.9 (1.1-1.5); ALKALINE PHOSPHATASE 78 IU/L (46-116); ANION GAP 4 (8-16); ASPARTATE AMINO TRANSFERASE 13 U/L (10-37); BILIRUBIN,TOTAL 0.1 MG/DL (0.1-1.0); BLOOD UREA NITROGEN 15 MG/DL (7-18); CALCIUM 9.2 MG/DL (8.5-10.1); CHLORIDE 106 MMOL/L (99-107); CREATININE 0.79 MG/DL (0.40-0.90); GLUCOSE 151 MG/DL (70-104); POTASSIUM 4.4 MMOL/L (3.5-5.1); SODIUM 141 MMOL/L (135-145); TOTAL PROTEIN 5.8 G/DL (6.4-8.2); eCRCL 73 ML/MIN; eGFR 73 ML/MIN
--- NOTE | 2023-04-26 15:00 | NUR ---
I have reviewed and agree with interventions, assessments,and documentation by Misty Schmid LVN.
--- NOTE | 2023-04-26 15:49 | NUR ---
Patient discharged with her son. She took all of her belongings and left in a private vehicle. Patient was stable and had no c/o pain or discomfort at the time of discharge. No IVs were present. Gave patient discharge instuctions and she stated understanding. I stressed the importance of following up with [facility] where she has a therapist and she said she would. I talked to her son regarding the importance of family support. Patient states she has family at home to help her and support her.
== END 2023-04-26 15:25 | disposition home health service (06) | DRG 351 ==
LOC: ER 18:08 → ED HOLD 22:51 → EDBEDREQ 04-20 02:11 → ORTHO 4S 04-20 08:10
PROVIDERS: ADMIT Family Medicine; ATTEND Internal Medicine
DX: M25.551 Pain in right hip (principal); E11.9 Type 2 diabetes mellitus without complications; D64.9 Anemia, unspecified; I48.91 Unspecified atrial fibrillation; G40.909 Epilepsy, unspecified, not intractable, without status epilepticus; E78.5 Hyperlipidemia, unspecified; F32.A Depression, unspecified; J44.9 Chronic obstructive pulmonary disease, unspecified; I10 Essential (primary) hypertension; Z88.8 Allergy status to other drugs, medicaments and biological substances; Z79.899 Other long term (current) drug therapy; Z88.6 Allergy status to analgesic agent; Z91.041 Radiographic dye allergy status; Z91.013 Allergy to seafood; Z79.4 Long term (current) use of insulin; Z99.3 Dependence on wheelchair; Z88.1 Allergy status to other antibiotic agents
CPT/HCPCS: 36415; 72192; 73521; 80053; 80061; 80164; 80305; 80320; 81001; 82948; 83735; 83880; 84100; 85007; 85025; 85610; 85730; 87081; 94640; 94760; 97116; 97161; 97530; 97535; 99285; A4615; A6222; A6258; A6449; G0378; J1644; J2060; J2270; J2405; J7030

== ENCOUNTER 2023-05-01 14:18 | Emergency (ER) | payer MEDICAID ==
[~2023-05-01] VITALS: Ht 172.7 cm; Wt 114.5 kg
[~2023-05-01 14:18] MED LIST changes: +INSU100V11 SQ; +INSU100V9 SQ
[2023-05-01 14:32] VITALS: BP 126/66; PULSE 130; RESP 16; TEMP 98; O2SAT 98
[2023-05-01] MEDS ORDERED: HYDROcodone/acetaminophen 10/325mg tab PO ONE (17:05)
[2023-05-01] MEDS ORDERED: HYDR-3973 PO ×2 (17:09→17:10)
== END 2023-05-01 18:04 | disposition home or self-care (01) ==
LOC: ER 14:19
DX: M25.551 Pain in right hip (principal); Z88.1 Allergy status to other antibiotic agents; I10 Essential (primary) hypertension; J44.9 Chronic obstructive pulmonary disease, unspecified; E11.9 Type 2 diabetes mellitus without complications; Z88.8 Allergy status to other drugs, medicaments and biological substances; Z91.013 Allergy to seafood; Z88.6 Allergy status to analgesic agent; Z91.041 Radiographic dye allergy status; Z79.899 Other long term (current) drug therapy; Z79.84 Long term (current) use of oral hypoglycemic drugs
CPT/HCPCS: 73501; 93005; 99284

== ENCOUNTER 2023-05-14 23:34 | Emergency (ER) | payer MEDICAID ==
[~2023-05-14] VITALS: Ht 172.7 cm; Wt 114.5 kg
[~2023-05-14 23:34] MED LIST changes: +HYDR-3973 PO
[2023-05-14 23:43] VITALS: TEMP 97.6
--- NOTE | 2023-05-15 01:26 | NUR ---
metallurgy laboratory technician unable to draw pt, difficult stick. us guided IV placed.
[2023-05-15 01:44] LABS: BASOPHILS # (AUTO) 0.1 X10'3 (0-0.2); BASOPHILS % (AUTO) 0.7 % (0-1); EOSINOPHILS # (AUTO) 0.1 X10'3 (0-0.9); EOSINOPHILS % (AUTO) 1.2 % (0-6); HEMATOCRIT 45.1 % (35.0-45.0); HEMOGLOBIN 15.3 g/dl (12.0-16.0); LYMPHOCYTES # (AUTO) 2.6 X10'3 (1.1-4.8); LYMPHOCYTES % (AUTO) 33.5 % (21-51); MEAN CORPUSCULAR HEMOGLOBIN 33.5 PG (27.0-31.0); MEAN CORPUSCULAR VOLUME 98.7 FL (78-98); MEAN PLATELET VOLUME 7.2 FL (7.4-10.4); MONOCYTES # (AUTO) 0.5 X10'3 (0-0.9); NEUTROPHILS # (AUTO) 4.5 X10'3 (1.8-7.7); NEUTROPHILS % (AUTO) 58.6 % (42-75); PLATELET COUNT 366 X10'3 (140-440); RED BLOOD COUNT 4.57 X10'6 (4.20-5.60); RED CELL DISTRIBUTION WIDTH 14.1 % (11.5-14.5); WHITE BLOOD COUNT 7.6 X10'3 (4.5-11.0)
[2023-05-15 01:56] LABS: ALANINE AMINOTRANSFERASE 24 U/L (12-78); ALBUMIN 4.5 G/DL (3.4-5.0); ALBUMIN/GLOBULIN RATIO 1.1 (1.1-1.5); ALKALINE PHOSPHATASE 136 IU/L (46-116); ANION GAP 11 (8-16); ASPARTATE AMINO TRANSFERASE 9 U/L (10-37); BILIRUBIN,TOTAL 0.3 MG/DL (0.1-1.0); BLOOD UREA NITROGEN 21 MG/DL (7-18); BUN/CREATININE RATIO 16.5 (10.0-20.0); CALCIUM 10.5 MG/DL (8.5-10.1); CHLORIDE 99 MMOL/L (99-107); CREATININE 1.27 MG/DL (0.40-0.90); GLUCOSE 307 MG/DL (70-104); POTASSIUM 4.7 MMOL/L (3.5-5.1); SODIUM 136 MMOL/L (135-145); TOTAL CARBON DIOXIDE 26.2 MMOL/L (24-32); TOTAL PROTEIN 8.6 G/DL (6.4-8.2); eCRCL 45 ML/MIN; eGFR 42 ML/MIN
[2023-05-15] MEDS ORDERED: dexamethasone sod phosphate 10mg/ml inj PO STA (02:09)
[2023-05-15] MEDS ORDERED: albuterol 2.5 MG/3 ML nebule NEB ONE (02:10)
[2023-05-15] MEDS ORDERED: ipratropium 0.5 MG/2.5ML nebule IH ONE (02:10)
[2023-05-15] MEDS ORDERED: hydrALAZINE 20mg/ml inj. IV ONE (02:15)
[2023-05-15 02:33] VITALS: PULSE 109; RESP 20; O2SAT 100
[2023-05-15 02:43] VITALS: PULSE 107; RESP 18; O2SAT 100
[2023-05-15 03:15] LABS: MAGNESIUM 1.8 MG/DL (1.5-2.4); PRO BRAIN NATRIURETIC PEPTIDE 112 PG/ML (0-125); VALPROATE 64 UG/ML (50-100)
[2023-05-15] MEDS ORDERED: PRED20TA PO ×2 (04:18)
[2023-05-15 04:42] VITALS: BP 128/79; PULSE 114; RESP 20; O2SAT 98
== END 2023-05-15 04:45 | disposition home or self-care (01) ==
LOC: ER 23:35
DX: J44.1 Chronic obstructive pulmonary disease with (acute) exacerbation (principal)
CPT/HCPCS: 36415; 71045; 80053; 80164; 82948; 83735; 83880; 84484; 85025; 93005; 94640; 96374; 99285; J0360; J1100; 94760

== ENCOUNTER 2023-05-16 19:23 | Emergency (ER) | payer MEDICAID ==
[~2023-05-16] VITALS: Ht 172.7 cm; Wt 114.5 kg
[~2023-05-16 19:23] MED LIST changes: +PRED20TA PO
[2023-05-16 20:29] LABS: BASOPHILS % (AUTO) 0.6 % (0-1); EOSINOPHILS % (AUTO) 0.6 % (0-6); HEMATOCRIT 36.3 % (35.0-45.0); HEMOGLOBIN 12.6 g/dl (12.0-16.0); LYMPHOCYTES # (AUTO) 2.9 X10'3 (1.1-4.8); LYMPHOCYTES % (AUTO) 44.4 % (21-51); MEAN CORPUSCULAR HEMOGLOBIN 33.9 PG (27.0-31.0); MEAN CORPUSCULAR HGB CONC 34.7 g/dL (33.0-36.5); MEAN CORPUSCULAR VOLUME 97.7 FL (78-98); MEAN PLATELET VOLUME 6.8 FL (7.4-10.4); MONOCYTES # (AUTO) 0.3 X10'3 (0-0.9); MONOCYTES % (AUTO) 5.3 % (2-12); NEUTROPHILS # (AUTO) 3.2 X10'3 (1.8-7.7); NEUTROPHILS % (AUTO) 49.1 % (42-75); PLATELET COUNT 290 X10'3 (140-440); RED BLOOD COUNT 3.72 X10'6 (4.20-5.60); RED CELL DISTRIBUTION WIDTH 13.8 % (11.5-14.5); WHITE BLOOD COUNT 6.5 X10'3 (4.5-11.0)
[2023-05-16 20:35] LABS: ALANINE AMINOTRANSFERASE 20 U/L (12-78); ALBUMIN 3.7 G/DL (3.4-5.0); ALBUMIN/GLOBULIN RATIO 1.1 (1.1-1.5); ALKALINE PHOSPHATASE 101 IU/L (46-116); ANION GAP 13 (8-16); ASPARTATE AMINO TRANSFERASE 5 U/L (10-37); BILIRUBIN,TOTAL 0.2 MG/DL (0.1-1.0); BLOOD UREA NITROGEN 24 MG/DL (7-18); BUN/CREATININE RATIO 22.2 (10.0-20.0); CALCIUM 9.7 MG/DL (8.5-10.1); CHLORIDE 103 MMOL/L (99-107); CREATININE 1.08 MG/DL (0.40-0.90); GLUCOSE 256 MG/DL (70-104); POTASSIUM 3.5 MMOL/L (3.5-5.1); SODIUM 139 MMOL/L (135-145); TOTAL CARBON DIOXIDE 23.2 MMOL/L (24-32); eCRCL 53 ML/MIN; eGFR 51 ML/MIN
[2023-05-17] MEDS: insulin glargine (Lantus) pen - multi-dose SQ SCH ×2 (01:31→22:36)
[2023-05-17] MEDS: busPIRone 15mg tablet PO SCH ×3 (02:01→20:19)
[2023-05-17] MEDS: divalproex 250mg tablet, delayed-release PO SCH ×3 (02:01→20:19)
[2023-05-17] MEDS: levetiracetam 250mg tablet PO SCH ×3 (02:02→20:20)
[2023-05-17] MEDS: metoprolol tartrate 12.5mg (1/2 tablet) PO SCH ×4 (02:02→20:19)
[2023-05-17] MEDS: mirtazapine 15mg tablet PO SCH ×2 (02:03→20:19)
[2023-05-17] MEDS: prazosin 5mg capsule PO SCH ×2 (02:03→20:19)
[2023-05-17] MEDS: quetiapine fumarate ER 300mg tablet PO SCH ×2 (02:04→20:18)
[2023-05-17 02:17] LABS: BILIRUBIN,URINE NEGATIVE (Neg); CLARITY,URINE SLIGHTLY CLOUDY (Clear); COLOR,URINE YELLOW (Yellow); GLUCOSE, URINE 250 mg/dl (Neg); KETONES,URINE NEGATIVE (Neg); LEUKOCYTE ESTERASE ,URINE NEGATIVE (Neg); NITRITES, URINE NEGATIVE (Neg); OCCULT BLOOD,URINE NEGATIVE (Neg); PROTEIN,URINE NEGATIVE (Neg); UROBILINOGEN,URINE 0.2 E.U/dL (0.2-1.0)
[2023-05-17] MEDS: QUETIAPINE 50 MG TAB.SR.24H PO SCH ×2 (02:19→20:20)
[2023-05-17 02:24] LABS: UA COLLECTION TYPE VOIDED
[2023-05-17 02:25] LABS: COARSE GRANULAR CAST 0-3 /LPF (NEGATIVE); SQUAMOUS EPITHELIAL CELL,UR MANY /LPF (FEW)
[2023-05-17 02:26] LABS: BACTERIA,URINE 4+ /HPF (Neg); TRANSITIONAL EPI CELLS,URINE FEW /HPF
[2023-05-17 02:43] LABS: URINE AMPHETAMINE SCREEN NEGATIVE (Neg); URINE BARBITUATE SCREEN NEGATIVE (Neg); URINE BENZODIAZEPINES SCREEN NEGATIVE (Neg); URINE CANNABINOID SCREEN POSITIVE (Neg); URINE COCAINE SCREEN NEGATIVE (Neg); URINE METHADONE SCREEN NEGATIVE (Neg); URINE OPIATE SCREEN NEGATIVE (Neg); URINE PHENCYCLIDINE SCREEN NEGATIVE (Neg)
--- NOTE | 2023-05-17 06:36 | NUR ---
Patient brought over from Main ED to ED OF Bed 25. Placed walker at bedside. Placed patient on 2 liters Oxygen via N.C. Patient appears depressed. RN explained awaiting [facility]. RN gave patient a warm blanket, raised the head of the bed and turned off the light. RN ordered carb control diet for patient. Continue with the plan of care.
[2023-05-17] MEDS ORDERED: insulin Lispro (HumaLOG) vial - multi-dose SQ PRN (07:00)
[2023-05-17 07:08] LABS: VALPROATE 51 UG/ML (50-100)
--- NOTE | 2023-05-17 08:20 | NUR ---
Patient eating breakfast. No distress observed. Continue to monitor.
--- NOTE | 2023-05-17 09:38 | NUR ---
Patient up to BR with walker, steady gait. No distress observed. Continue to monitor.
--- NOTE | 2023-05-17 10:22 | NUR ---
Jose Angel PACE, evaluating patient. No distress observed. Continue to monitor.
--- NOTE | 2023-05-17 11:27 | NUR ---
Patient ambulatory to BR with walker, steady gait. Patient asked RN for pull-up. RN gave patient one and placed on at bedside. No distress observed. Continue to monitor.
--- NOTE | 2023-05-17 12:15 | NUR ---
Patient eating lunch. No distress observed. Continue to monitor.
--- NOTE | 2023-05-17 12:30 | NUR ---
Son visiting with patient. No distress observed. Continue to monitor.
--- NOTE | 2023-05-17 13:43 | NUR ---
Patient sleeping on her left side. Nonlabored respirations with Oxygen via NC. No distress observed. Continue with patient's plan of care.
--- NOTE | 2023-05-17 15:33 | NUR ---
Patient continues to sleep. No distress observed. Continue with the plan of care.
--- NOTE | 2023-05-17 17:01 | NUR ---
Patient ambulatory to BR, with walker, steady gait. No distress observed. Patient awaiting placement. Continue to monitor.
--- NOTE | 2023-05-17 17:26 | NUR ---
Patient eating dinner. No distress observed. Continue to monitor.
--- NOTE | 2023-05-17 19:19 | NUR ---
Patient sleeping. No distress observed. Continue to monitor.
[2023-05-17] MEDS ORDERED: traMADol 50MG tablet PO ONE (21:50)
--- NOTE | 2023-05-17 22:10 | NUR ---
Patient asked for pain medication 9/10 pain. RN got a one time order of Tramadol 50 mg. Continue to monitor.
--- NOTE | 2023-05-17 23:45 | NUR ---
Patient ambulatory to BR with walker, steady gait. No distress observed. Continue to monitor.
--- NOTE | 2023-05-18 01:04 | NUR ---
Patient sleeping on her left side. No distress observed. Continue to monitor.
--- NOTE | 2023-05-18 02:38 | NUR ---
Patient sleeping. No distress observed. Continue to monitor.
--- NOTE | 2023-05-18 04:30 | NUR ---
Patient continues to sleep. No distress observed. Continue to monitor.
[2023-05-18] MEDS: metoprolol tartrate 12.5mg (1/2 tablet) PO SCH ×2 (08:00→20:01)
[2023-05-18] MEDS: levetiracetam 250mg tablet PO SCH ×2 (08:21→20:00)
[2023-05-18] MEDS: divalproex 250mg tablet, delayed-release PO SCH ×2 (08:21→20:01)
[2023-05-18] MEDS: busPIRone 15mg tablet PO SCH ×2 (08:21→20:12)
--- NOTE | 2023-05-18 08:37 | NUR ---
Patient is awake and finishing her breakfast tray. No distress noted.
--- NOTE | 2023-05-18 12:13 | NUR ---
Patient off unit with SAMSON Moreno for shower.
[2023-05-18] MEDS: nystatin 15 GM powder TP SCH ×2 (12:30→20:02)
--- NOTE | 2023-05-18 12:38 | NUR ---
Salma sitting in her bed eating her lunch meal.
--- NOTE | 2023-05-18 13:30 | NUR ---
Patient sleeping. No distress observed. Continue to monitor.
[2023-05-18] MEDS ORDERED: traMADol 50MG tablet PO ONE (15:10)
--- NOTE | 2023-05-18 15:30 | NUR ---
Patient c/o pain 9/10 in right hip. Order received and administered Tramadol 50mg PO.
--- NOTE | 2023-05-18 16:52 | NUR ---
Patient appears to be sleeping on her left side. No s/sx of distress noted.
--- NOTE | 2023-05-18 17:10 | NUR ---
Patient's son here to visit.
--- NOTE | 2023-05-18 17:42 | NUR ---
Patient eating her dinner meal with son at bedside.
--- NOTE | 2023-05-18 18:29 | NUR ---
Received pt from JUANA Parra. Pt is awake lying in bed, reading a book. Pt denies any SI/HI/AVH at this time. Pt ate all her meal tonight. RR even and unlabored. Monitor for safety.
[2023-05-18] MEDS: quetiapine fumarate ER 300mg tablet PO SCH (20:01)
[2023-05-18] MEDS: mirtazapine 15mg tablet PO SCH (20:01)
[2023-05-18] MEDS: QUETIAPINE 50 MG TAB.SR.24H PO SCH (20:02)
--- NOTE | 2023-05-18 20:18 | NUR ---
blood sugar is 222.
[2023-05-18] MEDS: prazosin 5mg capsule PO SCH (20:19)
--- NOTE | 2023-05-18 20:36 | NUR ---
Pt compliant with HS medications. Lantus 25 units given right abdomen. Pt in NAD, reading a book eating a snack.
[2023-05-18] MEDS: insulin glargine (Lantus) pen - multi-dose SQ SCH (21:00)
--- NOTE | 2023-05-18 21:08 | NUR ---
pt up to the bathroom using a walker. New brief given.
--- NOTE | 2023-05-18 23:13 | NUR ---
Pt c/o SOB. O2 at 2L via nasal canula.
[2023-05-18] MEDS ORDERED: albuterol 2.5 MG/3 ML nebule NEB ONE (23:25)
[2023-05-18 23:34] VITALS: PULSE 88; RESP 16; O2SAT 98
[2023-05-18 23:38] VITALS: PULSE 86; RESP 16
--- NOTE | 2023-05-18 23:47 | NUR ---
RT here to give nebulizer treatment, pt feeling much better.
--- NOTE | 2023-05-19 01:18 | NUR ---
Pt resting quitely with eyes closed, RR even and unlabored. Monitor for safety.
--- NOTE | 2023-05-19 03:31 | NUR ---
Pt resting quietly with eyes closed, RR even and unlabored. Pt in NAD, monitor for safety.
--- NOTE | 2023-05-19 05:09 | NUR ---
Pt resting quietly with eyes closed, RR even and unlabored. Pt in NAD, monitor for safety.
--- NOTE | 2023-05-19 06:30 | NUR ---
Pt is lying in bed on her left side, she appears to be sleeping.
--- NOTE | 2023-05-19 08:00 | NUR ---
FS BG ac bkfst was 150.
[2023-05-19] MEDS: busPIRone 15mg tablet PO SCH ×2 (08:34→20:30)
[2023-05-19] MEDS: levetiracetam 250mg tablet PO SCH ×2 (08:34→20:31)
[2023-05-19] MEDS: metoprolol tartrate 12.5mg (1/2 tablet) PO SCH ×2 (08:34→20:31)
[2023-05-19] MEDS: divalproex 250mg tablet, delayed-release PO SCH ×2 (08:34→20:31)
[2023-05-19] MEDS: nystatin 15 GM powder TP SCH ×3 (08:35→20:31)
--- NOTE | 2023-05-19 08:35 | NUR ---
Pt ambulated to the bathroom with FWW.
[2023-05-19] MEDS: albuterol 2.5 MG/3 ML nebule NEB PRN ×2 (09:59→21:33)
[2023-05-19 10:00] VITALS: PULSE 92; RESP 16; O2SAT 98
--- NOTE | 2023-05-19 10:02 | NUR ---
RT is at bedside administering a nebulizer treatment per pt's request.
[2023-05-19 10:07] VITALS: PULSE 88; RESP 16
--- NOTE | 2023-05-19 11:53 | NUR ---
Pt is lying quietly in bed on her left side.
--- NOTE | 2023-05-19 12:16 | NUR ---
FS BG ac lunch was 179.
--- NOTE | 2023-05-19 14:15 | NUR ---
Pt up to use the bathroom.
[2023-05-19] MEDS: traMADol 50MG tablet PO PRN ×2 (15:41→21:50)
--- NOTE | 2023-05-19 15:44 | NUR ---
Pt c/o 04/13 right hip pain. Obtained order for Tramadol 50 mg PO Q6H PRN, given at 1541.
--- NOTE | 2023-05-19 17:26 | NUR ---
Pt is lying quietly on her left side awake in bed.
--- NOTE | 2023-05-19 17:50 | NUR ---
FS BG ac dinner was 122.
--- NOTE | 2023-05-19 17:55 | NUR ---
Son and female visitor at bedside.
--- NOTE | 2023-05-19 20:15 | NUR ---
Pt is lying in bed reading a book.
[2023-05-19] MEDS: mirtazapine 15mg tablet PO SCH (20:30)
[2023-05-19] MEDS: QUETIAPINE 50 MG TAB.SR.24H PO SCH (20:30)
[2023-05-19] MEDS: quetiapine fumarate ER 300mg tablet PO SCH (20:30)
[2023-05-19] MEDS: prazosin 5mg capsule PO SCH (20:31)
--- NOTE | 2023-05-19 21:26 | NUR ---
HS FS BG was 160. Pt c/o "tight" lungs and is requesting a breathing treatment. RT paged.
[2023-05-19 21:35] VITALS: PULSE 81; RESP 16; O2SAT 98
[2023-05-19 21:42] VITALS: PULSE 87; RESP 16
[2023-05-19] MEDS: insulin glargine (Lantus) pen - multi-dose SQ SCH (21:45)
--- NOTE | 2023-05-19 23:26 | NUR ---
Pt is lying in bed on her left side, she appears to be sleeping. RR 20.
--- NOTE | 2023-05-20 01:30 | NUR ---
Pt resting with eyes closed, RRn even abd unlabored. Pt in NAD, monitor for safety.
--- NOTE | 2023-05-20 02:56 | NUR ---
Patient sleeping. No distress observed. Continue to monitor.
--- NOTE | 2023-05-20 04:41 | NUR ---
Pt is lying in bed asleep, RR even and unlabored. Pt in NAD, monitor for safety.
--- NOTE | 2023-05-20 06:07 | NUR ---
Pt resting in bed on left side, VS taken. Pt in no distress. Monitor for safety.
[2023-05-20 06:23] VITALS: BP_DIAS 63; TEMP 98.5; O2SAT 97
--- NOTE | 2023-05-20 07:28 | NUR ---
PT GIVEN MEAL TRAY AND BLOOD SUGAR CHECKED. PT IS CALM AND COOPERATIVE
[2023-05-20] MEDS: divalproex 250mg tablet, delayed-release PO SCH (07:59)
[2023-05-20] MEDS: levetiracetam 250mg tablet PO SCH (07:59)
[2023-05-20] MEDS: busPIRone 15mg tablet PO SCH (07:59)
[2023-05-20 08:01] VITALS: BP_SYST 112; PULSE 90
[2023-05-20] MEDS: metoprolol tartrate 12.5mg (1/2 tablet) PO SCH (08:01)
[2023-05-20] MEDS: nystatin 15 GM powder TP SCH ×2 (08:01→12:51)
--- NOTE | 2023-05-20 10:51 | NUR ---
RECEIVED REPORT FROM LAST ARIAS. PT IS IN BED RESTING. WITNESSED CHEST RISING AND FALLING. BREATHING EVEN UNLABORED. NO NEEDS AT THIS TIME.
--- NOTE | 2023-05-20 12:17 | NUR ---
CHECKED PT'S BLOOD SUGAR. BLOOD SUGAR WAS 184. PT DID NOT WANT TRAY AND WANTED TO GO BACK TO SLEEP.
--- NOTE | 2023-05-20 12:56 | NUR ---
APPLIED NYSTATIN POWDER ON PT. PT IS BEING D/C AND HER SON IS PICKING HER UP.
[2023-05-20 13:11] VITALS: RESP 18
[2023-05-20] MEDS: traMADol 50MG tablet PO PRN (13:11)
--- NOTE | 2023-05-20 13:17 | NUR ---
PT STATED SHE HAD 9/10 PAIN TO HIPS BILAT. ADMINISTERED 50 MG TAMDOL
== END 2023-05-20 13:30 | disposition home or self-care (01) ==
LOC: ER 19:24
DX: S61.512A Laceration without foreign body of left wrist, initial encounter (principal); R45.851 Suicidal ideations; Z20.822 Contact with and (suspected) exposure to COVID-19; P27.1 Bronchopulmonary dysplasia originating in the perinatal period; I48.91 Unspecified atrial fibrillation; I10 Essential (primary) hypertension; J44.9 Chronic obstructive pulmonary disease, unspecified; E11.9 Type 2 diabetes mellitus without complications; F41.9 Anxiety disorder, unspecified; F32.A Depression, unspecified; Z87.19 Personal history of other diseases of the digestive system; Z79.899 Other long term (current) drug therapy; Z88.1 Allergy status to other antibiotic agents; Z91.018 Allergy to other foods; Z88.5 Allergy status to narcotic agent; Z91.041 Radiographic dye allergy status; Z88.8 Allergy status to other drugs, medicaments and biological substances; X78.9XXA Intentional self-harm by unspecified sharp object, initial encounter; Y93.89 Activity, other specified; Y92.89 Other specified places as the place of occurrence of the external cause; Y99.8 Other external cause status
CPT/HCPCS: 36415; 80053; 80164; 80177; 80305; 81001; 82948; 85025; 87811; 96372; 99285; J1815

== ENCOUNTER 2023-06-08 17:41 | Emergency (ER) | payer MEDICAID ==
[~2023-06-08] VITALS: Ht 172.7 cm; Wt 113.6 kg
[~2023-06-08 17:41] MED LIST changes: -AMYL1CAP57 PO; -ATOR40TA72 PO; -DICL20GE TOP; -FERR325T28 PO; -HYDR-3973 PO; -IPRA3AMP31 IH; -ONDA4TAB12 PO; -PANT-47 PO; +PRED10TA23 PO; -PRED20TA PO; -QUET50TA94 PO; -SUCR1TAB PO; +SUMA100T16 PO; +SUMA5SPR; -TIOT4MIS5 INH
[2023-06-08 20:27] LABS: BILIRUBIN,URINE NEGATIVE (Neg); CLARITY,URINE SLIGHTLY CLOUDY (Clear); COLOR,URINE YELLOW (Yellow); GLUCOSE, URINE NEGATIVE (Neg); KETONES,URINE 15 mg/dl (Neg); LEUKOCYTE ESTERASE ,URINE TRACE (Neg); NITRITES, URINE NEGATIVE (Neg); OCCULT BLOOD,URINE SMALL (Neg); PROTEIN,URINE NEGATIVE (Neg); UROBILINOGEN,URINE 0.2 E.U/dL (0.2-1.0)
[2023-06-08 20:42] LABS: UA COLLECTION TYPE VOIDED
[2023-06-08 20:50] LABS: BACTERIA,URINE 3+ /HPF (Neg); MUCUS STRANDS FEW /LPF (Neg); SQUAMOUS EPITHELIAL CELL,UR FEW /LPF (FEW); WBC,URINE 0-4 /HPF (0-4)
[2023-06-08] MEDS ORDERED: morphine 4 MG/ML inj SYRINge IV PRN (21:25)
[2023-06-08] MEDS ORDERED: ondansetron/PF 4mg/2ml inj IV ONE (21:25)
[2023-06-08] MEDS ORDERED: normal saline 1000ML IV soln IVB ONE (21:25)
[2023-06-08 22:08] LABS: BASOPHILS % (AUTO) 0.7 % (0-1); EOSINOPHILS # (AUTO) 0.1 X10'3 (0-0.9); EOSINOPHILS % (AUTO) 1.3 % (0-6); HEMOGLOBIN 12.2 g/dl (12.0-16.0); LYMPHOCYTES # (AUTO) 2.5 X10'3 (1.1-4.8); LYMPHOCYTES % (AUTO) 39.1 % (21-51); MEAN CORPUSCULAR HEMOGLOBIN 33.9 PG (27.0-31.0); MEAN CORPUSCULAR HGB CONC 33.9 g/dL (33.0-36.5); MEAN CORPUSCULAR VOLUME 99.9 FL (78-98); MEAN PLATELET VOLUME 7.1 FL (7.4-10.4); MONOCYTES # (AUTO) 0.4 X10'3 (0-0.9); MONOCYTES % (AUTO) 6.5 % (2-12); NEUTROPHILS # (AUTO) 3.4 X10'3 (1.8-7.7); NEUTROPHILS % (AUTO) 52.4 % (42-75); PLATELET COUNT 297 X10'3 (140-440); RED CELL DISTRIBUTION WIDTH 13.8 % (11.5-14.5); WHITE BLOOD COUNT 6.5 X10'3 (4.5-11.0)
[2023-06-08 22:17] LABS: ALANINE AMINOTRANSFERASE 20 U/L (12-78); ALBUMIN 3.6 G/DL (3.4-5.0); ALBUMIN/GLOBULIN RATIO 1.1 (1.1-1.5); ALKALINE PHOSPHATASE 90 IU/L (46-116); ANION GAP 6 (8-16); ASPARTATE AMINO TRANSFERASE 6 U/L (10-37); BILIRUBIN,TOTAL 0.2 MG/DL (0.1-1.0); BLOOD UREA NITROGEN 31 MG/DL (7-18); BUN/CREATININE RATIO 36.5 (10.0-20.0); C-REACTIVE PROTEIN 0.24 MG/DL (0.0-0.5); CALCIUM 9.7 MG/DL (8.5-10.1); CHLORIDE 103 MMOL/L (99-107); CREATININE 0.85 MG/DL (0.40-0.90); GLUCOSE 138 MG/DL (70-104); POTASSIUM 4.2 MMOL/L (3.5-5.1); SODIUM 137 MMOL/L (135-145); TOTAL CARBON DIOXIDE 27.7 MMOL/L (24-32); TOTAL PROTEIN 6.8 G/DL (6.4-8.2); eCRCL 67 ML/MIN; eGFR 67 ML/MIN
[2023-06-08 22:30] LABS: LIPASE 82 U/L (16-77)
[2023-06-08] MEDS ORDERED: CefTRIAXone/D5W-Rocephin 1gm 50 ML IV ONE (22:50)
[2023-06-08] MEDS ORDERED: FOSFOMYCIN TROMETHAMINE 3 GM PACKET PO ONE (22:50)
[2023-06-08] MEDS ORDERED: DICY10CA88 PO (22:59)
[2023-06-08] MEDS ORDERED: dicyclomine 10 MG capsule PO ONE (23:00)
--- NOTE | 2023-06-08 23:50 | NUR ---
pt eating a sandwich, she is hungry
--- NOTE | 2023-06-08 23:52 | NUR ---
2210 REPORT TO CHARGE NURSE AMADOR.
[2023-06-09 00:30] VITALS: BP 144/57; PULSE 111; RESP 18; TEMP 98.4; O2SAT 100
[2023-06-09] MEDS ORDERED: CEPH250T PO (01:13)
== END 2023-06-09 00:34 | disposition home or self-care (01) ==
LOC: ER 17:42
DX: N39.0 Urinary tract infection, site not specified (principal); J45.909 Unspecified asthma, uncomplicated; J44.9 Chronic obstructive pulmonary disease, unspecified; E11.9 Type 2 diabetes mellitus without complications; F31.9 Bipolar disorder, unspecified; I11.0 Hypertensive heart disease with heart failure
CPT/HCPCS: 36415; 74176; 80053; 81001; 83690; 85025; 86140; 96361; 96365; 96375; 99285; J0696; J2405; J7030

== ENCOUNTER 2023-06-23 15:11 | Emergency (ER) | payer MEDICAID ==
[~2023-06-23] VITALS: Ht 172.7 cm; Wt 119.1 kg
[~2023-06-23 15:11] MED LIST changes: +DICY10CA88 PO
[2023-06-23 16:17] LABS: BASOPHILS # (AUTO) 0.1 X10'3 (0-0.2); BASOPHILS % (AUTO) 0.9 % (0-1); EOSINOPHILS # (AUTO) 0.2 X10'3 (0-0.9); EOSINOPHILS % (AUTO) 2.6 % (0-6); HEMATOCRIT 42.2 % (35.0-45.0); HEMOGLOBIN 14.1 g/dl (12.0-16.0); LYMPHOCYTES # (AUTO) 2.4 X10'3 (1.1-4.8); LYMPHOCYTES % (AUTO) 38.7 % (21-51); MEAN CORPUSCULAR HEMOGLOBIN 33.4 PG (27.0-31.0); MEAN CORPUSCULAR HGB CONC 33.4 g/dL (33.0-36.5); MEAN CORPUSCULAR VOLUME 100.2 FL (78-98); MEAN PLATELET VOLUME 6.9 FL (7.4-10.4); MONOCYTES # (AUTO) 0.4 X10'3 (0-0.9); MONOCYTES % (AUTO) 6.9 % (2-12); NEUTROPHILS # (AUTO) 3.2 X10'3 (1.8-7.7); NEUTROPHILS % (AUTO) 50.9 % (42-75); PLATELET COUNT 376 X10'3 (140-440); RED BLOOD COUNT 4.21 X10'6 (4.20-5.60); RED CELL DISTRIBUTION WIDTH 14.2 % (11.5-14.5); WHITE BLOOD COUNT 6.2 X10'3 (4.5-11.0)
[2023-06-23 16:35] LABS: ALANINE AMINOTRANSFERASE 42 U/L (12-78); ALKALINE PHOSPHATASE 138 IU/L (46-116); ANION GAP 12 (8-16); ASPARTATE AMINO TRANSFERASE 17 U/L (10-37); BILIRUBIN,TOTAL 0.1 MG/DL (0.1-1.0); BLOOD UREA NITROGEN 29 MG/DL (7-18); CALCIUM 10.2 MG/DL (8.5-10.1); CHLORIDE 103 MMOL/L (99-107); CREATININE 1.26 MG/DL (0.40-0.90); GLUCOSE 169 MG/DL (70-104); POTASSIUM 4.6 MMOL/L (3.5-5.1); SODIUM 138 MMOL/L (135-145); TOTAL CARBON DIOXIDE 23.2 MMOL/L (24-32); eCRCL 46 ML/MIN; eGFR 43 ML/MIN
[2023-06-23] MEDS ORDERED: normal saline 1000ML IV soln IVB ONE (16:35)
[2023-06-23 16:43] LABS: LIPASE 24 U/L (16-77)
[2023-06-23 17:29] LABS: BILIRUBIN,URINE NEGATIVE (Neg); CLARITY,URINE CLOUDY (Clear); COLOR,URINE YELLOW (Yellow); GLUCOSE, URINE NEGATIVE (Neg); KETONES,URINE NEGATIVE (Neg); LEUKOCYTE ESTERASE ,URINE NEGATIVE (Neg); NITRITES, URINE NEGATIVE (Neg); OCCULT BLOOD,URINE NEGATIVE (Neg); PH,URINE 5.5 (4.8-8.0); PROTEIN,URINE NEGATIVE (Neg); UROBILINOGEN,URINE 0.2 E.U/dL (0.2-1.0)
[2023-06-23 17:33] LABS: UA COLLECTION TYPE CLN CATCH MIDSTREAM
[2023-06-23 17:41] LABS: BACTERIA,URINE 3+ /HPF (Neg); RBC,URINE 0-2 /HPF (0-2); SQUAMOUS EPITHELIAL CELL,UR MANY /LPF (FEW); WBC,URINE 0-4 /HPF (0-4)
[2023-06-23 18:24] VITALS: BP 127/69; PULSE 99; RESP 16; TEMP 97.8; O2SAT 100
== END 2023-06-23 18:27 | disposition home or self-care (01) ==
LOC: ER 15:11
DX: R10.84 Generalized abdominal pain (principal); R19.7 Diarrhea, unspecified; I10 Essential (primary) hypertension; J44.9 Chronic obstructive pulmonary disease, unspecified; E11.9 Type 2 diabetes mellitus without complications; G89.29 Other chronic pain; F41.9 Anxiety disorder, unspecified; F32.9 Major depressive disorder, single episode, unspecified; Z98.890 Other specified postprocedural states; Z86.69 Personal history of other diseases of the nervous system and sense organs; Z86.19 Personal history of other infectious and parasitic diseases; Z88.1 Allergy status to other antibiotic agents; Z91.013 Allergy to seafood; Z88.8 Allergy status to other drugs, medicaments and biological substances; Z88.6 Allergy status to analgesic agent; Z79.4 Long term (current) use of insulin; Z79.899 Other long term (current) drug therapy
CPT/HCPCS: 36415; 80053; 81001; 83690; 85025; 96360; 99284; J7030

== ENCOUNTER 2023-08-02 11:40 | Emergency (ER) | payer MEDICAID ==
[~2023-08-02] VITALS: Ht 172.7 cm; Wt 130.0 kg
[~2023-08-02 11:40] MED LIST changes: -DICY10CA88 PO; -PRED10TA23 PO
[2023-08-02] MEDS ORDERED: normal saline 1000ML IV soln IVB ONE (11:50)
--- NOTE | 2023-08-02 13:39 | NUR ---
picc nurse at bedside with patient and started iv on left forearm. iv ns bolus running. iv patent
[2023-08-02 14:05] LABS: BASOPHILS % (AUTO) 0.7 % (0-1); EOSINOPHILS # (AUTO) 0.1 X10'3 (0-0.9); EOSINOPHILS % (AUTO) 2.3 % (0-6); HEMATOCRIT 37.5 % (35.0-45.0); HEMOGLOBIN 12.5 g/dl (12.0-16.0); LYMPHOCYTES # (AUTO) 1.8 X10'3 (1.1-4.8); LYMPHOCYTES % (AUTO) 40.6 % (21-51); MEAN CORPUSCULAR HEMOGLOBIN 32.8 PG (27.0-31.0); MEAN CORPUSCULAR HGB CONC 33.2 g/dL (33.0-36.5); MEAN PLATELET VOLUME 7.4 FL (7.4-10.4); MONOCYTES # (AUTO) 0.3 X10'3 (0-0.9); MONOCYTES % (AUTO) 6.8 % (2-12); NEUTROPHILS # (AUTO) 2.2 X10'3 (1.8-7.7); NEUTROPHILS % (AUTO) 49.6 % (42-75); PLATELET COUNT 293 X10'3 (140-440); RED BLOOD COUNT 3.79 X10'6 (4.20-5.60); RED CELL DISTRIBUTION WIDTH 13.6 % (11.5-14.5); WHITE BLOOD COUNT 4.4 X10'3 (4.5-11.0)
[2023-08-02] MEDS ORDERED: levetiracetam inj 1,000 MG in normal saline 100ml IV soln 100 ML IV SCH (14:08)
[2023-08-02 14:12] LABS: ALBUMIN 3.3 G/DL (3.4-5.0); ANION GAP 7 (8-16); BLOOD UREA NITROGEN 15 MG/DL (7-18); BUN/CREATININE RATIO 16.5 (10.0-20.0); CHLORIDE 106 MMOL/L (99-107); CREATININE 0.91 MG/DL (0.40-0.90); GLUCOSE 89 MG/DL (70-104); POTASSIUM 4.2 MMOL/L (3.5-5.1); SODIUM 140 MMOL/L (135-145); TOTAL CARBON DIOXIDE 26.8 MMOL/L (24-32); eCRCL 63 ML/MIN; eGFR 62 ML/MIN
[2023-08-02 15:27] VITALS: BP 125/64; PULSE 92; RESP 13; TEMP 98.3; O2SAT 99
--- NOTE | 2023-08-02 15:27 | NUR ---
[facility] CALLED FOR TRANSPORT, WHEELCHAIR W/ 4L O2. ETA 1630.
== END 2023-08-02 18:00 | disposition home or self-care (01) ==
LOC: ER 11:40
DX: G40.909 Epilepsy, unspecified, not intractable, without status epilepticus (principal); I10 Essential (primary) hypertension; J44.9 Chronic obstructive pulmonary disease, unspecified; E11.9 Type 2 diabetes mellitus without complications; G89.29 Other chronic pain; F41.9 Anxiety disorder, unspecified; F32.9 Major depressive disorder, single episode, unspecified; Z86.19 Personal history of other infectious and parasitic diseases; Z98.890 Other specified postprocedural states; Z88.1 Allergy status to other antibiotic agents; Z88.8 Allergy status to other drugs, medicaments and biological substances; Z91.013 Allergy to seafood; Z91.018 Allergy to other foods; Z79.4 Long term (current) use of insulin; Z79.899 Other long term (current) drug therapy
CPT/HCPCS: 36415; 71045; 80048; 85025; 93005; 96361; 96365; 99285; J1953; J3490; J7030

== ENCOUNTER 2023-09-11 14:32 | Emergency (ER) | payer MEDICAID ==
[~2023-09-11] VITALS: Ht 172.7 cm; Wt 128.2 kg
[2023-09-12] MEDS ORDERED: morphine 4 MG/ML inj SYRINge IV ONE (00:15)
[2023-09-12] MEDS ORDERED: normal saline 1000ML IV soln IVB ONE (00:15)
[2023-09-12] MEDS ORDERED: ondansetron/PF 4mg/2ml inj IV ONE (00:15)
[2023-09-12 02:07] LABS: ALANINE AMINOTRANSFERASE 25 U/L (12-78); ALBUMIN 3.6 G/DL (3.4-5.0); ALKALINE PHOSPHATASE 98 IU/L (46-116); ANION GAP 11 (8-16); ASPARTATE AMINO TRANSFERASE 9 U/L (10-37); BILIRUBIN,TOTAL 0.3 MG/DL (0.1-1.0); BLOOD UREA NITROGEN 25 MG/DL (7-18); BUN/CREATININE RATIO 28.4 (10.0-20.0); CALCIUM 9.3 MG/DL (8.5-10.1); CHLORIDE 104 MMOL/L (99-107); CREATININE 0.88 MG/DL (0.40-0.90); GLUCOSE 111 MG/DL (70-104); LIPASE 16 U/L (16-77); SODIUM 138 MMOL/L (135-145); TOTAL CARBON DIOXIDE 22.9 MMOL/L (24-32); TOTAL PROTEIN 7.1 G/DL (6.4-8.2); eCRCL 65 ML/MIN; eGFR 65 ML/MIN
[2023-09-12 02:15] LABS: BASOPHILS % (AUTO) 0.6 % (0-1); EOSINOPHILS # (AUTO) 0.1 X10'3 (0-0.9); EOSINOPHILS % (AUTO) 1.1 % (0-6); HEMATOCRIT 38.2 % (35.0-45.0); HEMOGLOBIN 12.9 g/dl (12.0-16.0); LYMPHOCYTES # (AUTO) 2.3 X10'3 (1.1-4.8); LYMPHOCYTES % (AUTO) 34.9 % (21-51); MEAN CORPUSCULAR HEMOGLOBIN 33.1 PG (27.0-31.0); MEAN CORPUSCULAR HGB CONC 33.8 g/dL (33.0-36.5); MEAN CORPUSCULAR VOLUME 97.8 FL (78-98); MEAN PLATELET VOLUME 7.7 FL (7.4-10.4); MONOCYTES # (AUTO) 0.4 X10'3 (0-0.9); MONOCYTES % (AUTO) 6.7 % (2-12); NEUTROPHILS # (AUTO) 3.7 X10'3 (1.8-7.7); NEUTROPHILS % (AUTO) 56.7 % (42-75); PLATELET COUNT 261 X10'3 (140-440); RED BLOOD COUNT 3.91 X10'6 (4.20-5.60); RED CELL DISTRIBUTION WIDTH 13.8 % (11.5-14.5); WHITE BLOOD COUNT 6.5 X10'3 (4.5-11.0)
[2023-09-12] MEDS ORDERED: NYST30CR34 TOP (05:01)
[2023-09-12 05:18] VITALS: BP 107/70; PULSE 86; RESP 16; TEMP 98; O2SAT 95
== END 2023-09-12 05:20 | disposition home or self-care (01) ==
LOC: ER 14:33
DX: R10.12 Left upper quadrant pain (principal); R11.0 Nausea; R10.84 Generalized abdominal pain; B35.9 Dermatophytosis, unspecified; I48.91 Unspecified atrial fibrillation; I10 Essential (primary) hypertension; J44.9 Chronic obstructive pulmonary disease, unspecified; G89.29 Other chronic pain; E11.9 Type 2 diabetes mellitus without complications; Z87.81 Personal history of (healed) traumatic fracture; Z88.1 Allergy status to other antibiotic agents; Z88.8 Allergy status to other drugs, medicaments and biological substances; Z91.013 Allergy to seafood; Z88.6 Allergy status to analgesic agent; Z90.710 Acquired absence of both cervix and uterus; Z79.899 Other long term (current) drug therapy; Z79.4 Long term (current) use of insulin
CPT/HCPCS: 36415; 74176; 80053; 83690; 84484; 85025; 96361; 96374; 96375; 99285; J2270; J2405; J7030

== ENCOUNTER 2023-10-11 03:26 | Emergency (ER) | payer MEDICAID ==
[~2023-10-11] VITALS: Ht 172.7 cm; Wt 140.0 kg
[~2023-10-11 03:26] MED LIST changes: +FERR325T35 PO; -MIRT-67 PO; +OMEP40CA21 PO; +QUET300T5 PO; -QUET400T54 PO; -SUMA100T16 PO; -SUMA5SPR; +TIOT18CA3 INH; +VENL25TA48 PO; -VENL75CA61 PO
[2023-10-11 03:33] VITALS: TEMP 98.3
[2023-10-11] MEDS: HYDROcodone/acetaminophen 5mg/325mg tablet PO ONE (04:22)
[2023-10-11] MEDS: ondansetron/PF 4mg/2ml inj IV ONE (04:43)
[2023-10-11] MEDS: fentaNYL/PF 50MCG/1 ML 2ML syringe IV ONE (04:43)
[2023-10-11] MEDS: normal saline 1000ml 1,000 ML IV ONE (04:46)
[2023-10-11 05:00] LABS: ALBUMIN 2.9 G/DL (3.4-5.0); ANION GAP 11 (8-16); BLOOD UREA NITROGEN 15 MG/DL (7-18); CALCIUM 8.5 MG/DL (8.5-10.1); CHLORIDE 109 MMOL/L (99-107); CREATININE 0.88 MG/DL (0.40-0.90); GLUCOSE 119 MG/DL (70-104); POTASSIUM 3.6 MMOL/L (3.5-5.1); SODIUM 144 MMOL/L (135-145); TOTAL CARBON DIOXIDE 24.1 MMOL/L (24-32); eCRCL 65 ML/MIN; eGFR 65 ML/MIN
[2023-10-11 05:01] LABS: BASOPHILS % (AUTO) 0.5 % (0-1); EOSINOPHILS # (AUTO) 0.1 X10'3 (0-0.9); HEMATOCRIT 33.7 % (35.0-45.0); HEMOGLOBIN 11.4 g/dl (12.0-16.0); LYMPHOCYTES # (AUTO) 2.1 X10'3 (1.1-4.8); LYMPHOCYTES % (AUTO) 52.9 % (21-51); MEAN CORPUSCULAR HEMOGLOBIN 32.9 PG (27.0-31.0); MEAN CORPUSCULAR HGB CONC 33.8 g/dL (33.0-36.5); MEAN CORPUSCULAR VOLUME 97.3 FL (78-98); MEAN PLATELET VOLUME 7.1 FL (7.4-10.4); MONOCYTES # (AUTO) 0.3 X10'3 (0-0.9); MONOCYTES % (AUTO) 7.8 % (2-12); NEUTROPHILS # (AUTO) 1.4 X10'3 (1.8-7.7); NEUTROPHILS % (AUTO) 35.8 % (42-75); PLATELET COUNT 242 X10'3 (140-440); RED BLOOD COUNT 3.46 X10'6 (4.20-5.60); RED CELL DISTRIBUTION WIDTH 13.4 % (11.5-14.5); WHITE BLOOD COUNT 3.9 X10'3 (4.5-11.0)
[2023-10-11] MEDS ORDERED: HYDR-3965 PO (05:36)
[2023-10-11] MEDS ORDERED: LIDOcaine Viscous 15ml cup MM ONE (05:45)
[2023-10-11 05:57] LABS: TOTAL CELLS COUNTED 100
[2023-10-11 05:58] LABS: PLATELET ESTIMATE NORMAL
[2023-10-11 06:07] VITALS: BP 113/33; PULSE 86; RESP 16; O2SAT 98
[2023-10-11] MEDS ORDERED: CEPH-585 PO (12:52)
== END 2023-10-11 06:08 | disposition home or self-care (01) ==
LOC: ER 03:26
DX: M25.551 Pain in right hip (principal); I10 Essential (primary) hypertension; J45.909 Unspecified asthma, uncomplicated; E11.9 Type 2 diabetes mellitus without complications; F41.9 Anxiety disorder, unspecified; F32.A Depression, unspecified; I48.91 Unspecified atrial fibrillation; Z88.6 Allergy status to analgesic agent; Z91.013 Allergy to seafood; Z91.040 Latex allergy status; Z79.4 Long term (current) use of insulin; Z79.899 Other long term (current) drug therapy; Z79.2 Long term (current) use of antibiotics; W18.39XA Other fall on same level, initial encounter; Y93.89 Activity, other specified; Y92.89 Other specified places as the place of occurrence of the external cause; Y99.8 Other external cause status
CPT/HCPCS: 36415; 73502; 80048; 84145; 85007; 85025; 96361; 96374; 96375; 99285; J2405; J3010; J7030; A4615

== ENCOUNTER 2023-10-11 07:04 | Emergency (ER) | payer MEDICAID ==
[~2023-10-11] VITALS: Ht 172.7 cm; Wt 128.2 kg
[2023-10-11] MEDS: normal saline 1000ML IV soln IVB ONE (06:30)
[~2023-10-11 07:04] MED LIST changes: +HYDR-3965 PO
[2023-10-11 07:09] VITALS: TEMP 98
[2023-10-11] MEDS: acetaminophen 325mg tablet PO ONE (07:44)
[2023-10-11] MEDS: traMADol 50MG tablet PO ONE (07:45)
[2023-10-11 11:06] VITALS: BP 145/67; PULSE 84; RESP 14; O2SAT 100
[2023-10-11 12:04] LABS: BILIRUBIN,URINE NEGATIVE (Neg); CLARITY,URINE CLOUDY (Clear); COLOR,URINE YELLOW (Yellow); GLUCOSE, URINE NEGATIVE (Neg); KETONES,URINE NEGATIVE (Neg); LEUKOCYTE ESTERASE ,URINE SMALL (Neg); NITRITES, URINE NEGATIVE (Neg); OCCULT BLOOD,URINE TRACE-INTACT (Neg); PROTEIN,URINE TRACE mg/dl (Neg); UROBILINOGEN,URINE 0.2 E.U/dL (0.2-1.0)
[2023-10-11 12:09] LABS: UA COLLECTION TYPE CLN CATCH MIDSTREAM
[2023-10-11 12:45] LABS: BACTERIA,URINE 1+ /HPF (Neg)
[2023-10-11 12:46] LABS: AMORPHOUS URATES 2+; MUCUS STRANDS MANY /LPF (Neg); SQUAMOUS EPITHELIAL CELL,UR MANY /LPF (FEW)
[2023-10-11 12:47] LABS: WBC,URINE 20-30 /HPF (0-4)
[2023-10-11] MEDS ORDERED: CEPH-585 PO (12:52)
[2023-10-11] MEDS: cephalexin 250mg capsule PO ONE (13:02)
== END 2023-10-11 13:18 | disposition home or self-care (01) ==
LOC: ER 07:05
DX: S01.81XA Laceration without foreign body of other part of head, initial encounter (principal); N39.0 Urinary tract infection, site not specified; I10 Essential (primary) hypertension; J44.9 Chronic obstructive pulmonary disease, unspecified; E11.9 Type 2 diabetes mellitus without complications; Z88.1 Allergy status to other antibiotic agents; Z88.8 Allergy status to other drugs, medicaments and biological substances; Z91.013 Allergy to seafood; Z88.6 Allergy status to analgesic agent; Z91.041 Radiographic dye allergy status; Z79.899 Other long term (current) drug therapy; Z79.84 Long term (current) use of oral hypoglycemic drugs; Z79.2 Long term (current) use of antibiotics; W19.XXXA Unspecified fall, initial encounter; Y93.89 Activity, other specified; Y92.89 Other specified places as the place of occurrence of the external cause; Y99.8 Other external cause status
CPT/HCPCS: 70450; 72125; 81001; 96360; 99284; J7030; A6449

== ENCOUNTER 2024-06-24 14:29 | Emergency (ER) | payer MEDICARE, MEDICAID ==
[~2024-06-24] VITALS: Ht 172.7 cm; Wt 100.0 kg
[~2024-06-24 14:29] MED LIST changes: +CEPH-585 PO; -HYDR-3965 PO
[2024-06-24 15:36] LABS: BASOPHILS % (AUTO) 0.5 % (0-1); EOSINOPHILS # (AUTO) 0.2 X10'3 (0-0.9); EOSINOPHILS % (AUTO) 2.7 % (0-6); HEMATOCRIT 40.3 % (35.0-45.0); HEMOGLOBIN 13.3 g/dl (12.0-16.0); LYMPHOCYTES # (AUTO) 1.5 X10'3 (1.1-4.8); LYMPHOCYTES % (AUTO) 21.4 % (21-51); MEAN CORPUSCULAR HEMOGLOBIN 31.5 PG (27.0-31.0); MEAN CORPUSCULAR HGB CONC 32.9 g/dL (33.0-36.5); MEAN CORPUSCULAR VOLUME 95.9 FL (78-98); MEAN PLATELET VOLUME 7.7 FL (7.4-10.4); MONOCYTES # (AUTO) 0.3 X10'3 (0-0.9); MONOCYTES % (AUTO) 4.6 % (2-12); NEUTROPHILS # (AUTO) 4.8 X10'3 (1.8-7.7); NEUTROPHILS % (AUTO) 70.8 % (42-75); PLATELET COUNT 197 X10'3 (140-440); RED BLOOD COUNT 4.21 X10'6 (4.20-5.60); RED CELL DISTRIBUTION WIDTH 12.9 % (11.5-14.5); WHITE BLOOD COUNT 6.8 X10'3 (4.5-11.0)
[2024-06-24 15:57] LABS: ALANINE AMINOTRANSFERASE 11 U/L (12-78); ALBUMIN 3.4 G/DL (3.4-5.0); ALKALINE PHOSPHATASE 111 IU/L (46-116); ANION GAP 6 (8-16); ASPARTATE AMINO TRANSFERASE 14 U/L (10-37); BILIRUBIN,TOTAL 0.4 MG/DL (0.1-1.0); BLOOD UREA NITROGEN 17 MG/DL (7-18); BUN/CREATININE RATIO 13.9 (10.0-20.0); CALCIUM 8.7 MG/DL (8.5-10.1); CHLORIDE 102 MMOL/L (99-107); CREATININE 1.22 MG/DL (0.40-0.90); GLUCOSE 86 MG/DL (70-104); POTASSIUM 4.1 MMOL/L (3.5-5.1); SODIUM 138 MMOL/L (135-145); TOTAL CARBON DIOXIDE 29.8 MMOL/L (24-32); TOTAL PROTEIN 6.9 G/DL (6.4-8.2); eCRCL 46 ML/MIN; eGFR 44 ML/MIN
[2024-06-24] MEDS ORDERED: levetiracetam inj 500 MG in normal saline 100ml IV soln 100 ML IV ONE (16:30)
[2024-06-24 16:37] LABS: ETHANOL < 10 MG/DL (<10); THYROID STIMULATING HORMONE 5.22 ulU/ml (0.34-4.50)
[2024-06-24 19:29] LABS: BILIRUBIN,URINE MODERATE (Neg); CLARITY,URINE SLIGHTLY CLOUDY (Clear); GLUCOSE, URINE NEGATIVE (Neg); KETONES,URINE 40 mg/dl (Neg); LEUKOCYTE ESTERASE ,URINE NEGATIVE (Neg); NITRITES, URINE NEGATIVE (Neg); OCCULT BLOOD,URINE NEGATIVE (Neg); PROTEIN,URINE NEGATIVE (Neg); URINE HCG NEGATIVE (NEG)
[2024-06-24 19:35] LABS: UA COLLECTION TYPE CLN CATCH MIDSTREAM
[2024-06-24 19:36] LABS: COLOR,URINE DARK YELLOW (Yellow)
[2024-06-24 19:40] LABS: BACTERIA,URINE FEW /HPF (Neg); MUCUS STRANDS FEW /LPF (Neg); RBC,URINE 0-2 /HPF (0-2); RENAL CELLS, URINE FEW /HPF; SQUAMOUS EPITHELIAL CELL,UR MODERATE /LPF (FEW); TRANSITIONAL EPI CELLS,URINE FEW /HPF; WBC,URINE 0-4 /HPF (0-4)
[2024-06-24 19:46] LABS: URINE AMPHETAMINE SCREEN NEGATIVE (Neg); URINE BARBITUATE SCREEN NEGATIVE (Neg); URINE BENZODIAZEPINES SCREEN NEGATIVE (Neg); URINE CANNABINOID SCREEN NEGATIVE (Neg); URINE COCAINE SCREEN NEGATIVE (Neg); URINE METHADONE SCREEN NEGATIVE (Neg); URINE OPIATE SCREEN NEGATIVE (Neg); URINE PHENCYCLIDINE SCREEN NEGATIVE (Neg)
[2024-06-24] MEDS: levetiracetam 250mg tablet PO ONE (19:47)
[2024-06-24] MEDS: LORazepam 2 mg/ml vial ONE (23:09)
[2024-06-24] MEDS ORDERED: ATOR40TA PO (23:24)
[2024-06-24] MEDS ORDERED: DIVA125T31 PO (23:29)
[2024-06-24] MEDS ORDERED: DIVA-76 PO (23:29)
[2024-06-24] MEDS ORDERED: KEP500T PO (23:30)
[2024-06-24] MEDS: oxyCODONE/APAP 5-325mg tablet PO ONE (23:44)
[2024-06-25] MEDS ORDERED: INSULIN LISPRO 100 UNIT/ML INSULN.PEN MULTI-DOSE SQ PRN (07:00)
[2024-06-25] MEDS: pantoprazole 40mg Tablet.DR PO SCH (07:27)
[2024-06-25] MEDS: divalproex 250mg tablet, delayed-release PO SCH (07:27)
[2024-06-25] MEDS: ferrous sulfate 325mg tablet PO SCH (07:27)
[2024-06-25] MEDS: atorvastatin 20mg tablet PO SCH (07:27)
[2024-06-25] MEDS: metoprolol tartrate 12.5mg (1/2 tablet) PO SCH (07:28)
[2024-06-25] MEDS: levetiracetam 250mg tablet PO SCH (07:28)
[2024-06-25] MEDS: TIOTROPIUM BROMIDE IH SCH (07:54)
[2024-06-25] MEDS ORDERED: venlafaxine 25mg tablet PO SCH (08:00)
[2024-06-25] MEDS: venlafaxine XR 75mg capsule (Q24H) PO SCH (08:00)
[2024-06-25] MEDS ORDERED: divalproex sod 125mg tablet.DR PO SCH (08:00)
[2024-06-25 11:54] VITALS: BP 111/62; PULSE 82; RESP 16; TEMP 98.1; O2SAT 98
[2024-06-25] MEDS ORDERED: quetiapine 100mg tablet PO SCH (21:00)
[2024-06-25] MEDS ORDERED: prazosin 5mg capsule PO SCH (21:00)
[2024-06-25] MEDS ORDERED: insulin glargine (Lantus) pen - multi-dose SQ SCH (21:00)
== END 2024-06-25 11:12 | disposition home or self-care (01) ==
LOC: ER 14:30
DX: G40.909 Epilepsy, unspecified, not intractable, without status epilepticus (principal); R45.851 Suicidal ideations; I48.91 Unspecified atrial fibrillation; I10 Essential (primary) hypertension; J44.9 Chronic obstructive pulmonary disease, unspecified; F41.9 Anxiety disorder, unspecified; F32.9 Major depressive disorder, single episode, unspecified; F15.90 Other stimulant use, unspecified, uncomplicated; Z20.822 Contact with and (suspected) exposure to COVID-19; Z88.8 Allergy status to other drugs, medicaments and biological substances; Z88.1 Allergy status to other antibiotic agents; Z91.018 Allergy to other foods; Z79.4 Long term (current) use of insulin; Z79.899 Other long term (current) drug therapy
CPT/HCPCS: 36415; 70450; 80053; 80305; 81001; 81025; 82948; 84443; 85025; 87811; 93005; 99284; G0480; J2060; 80320; J1815

== ENCOUNTER 2024-08-10 13:57 | Emergency (ER) | payer MEDICARE, MEDICAID ==
[~2024-08-10] VITALS: Ht 172.7 cm; Wt 83.2 kg
[~2024-08-10 13:57] MED LIST changes: +ATOR40TA PO; -BUSP10TA11 PO; -CEPH-585 PO; +DIVA125T31 PO
[2024-08-10 17:15] LABS: EOSINOPHILS # (AUTO) 0.1 X10'3 (0-0.9); EOSINOPHILS % (AUTO) 1.5 % (0-6); HEMATOCRIT 33.5 % (35.0-45.0); HEMOGLOBIN 11.5 g/dl (12.0-16.0); LYMPHOCYTES # (AUTO) 1.6 X10'3 (1.1-4.8); LYMPHOCYTES % (AUTO) 40.1 % (21-51); MEAN CORPUSCULAR HEMOGLOBIN 32.3 PG (27.0-31.0); MEAN CORPUSCULAR HGB CONC 34.3 g/dL (33.0-36.5); MEAN CORPUSCULAR VOLUME 94.3 FL (78-98); MEAN PLATELET VOLUME 7.9 FL (7.4-10.4); MONOCYTES # (AUTO) 0.2 X10'3 (0-0.9); MONOCYTES % (AUTO) 5.5 % (2-12); NEUTROPHILS # (AUTO) 2.1 X10'3 (1.8-7.7); NEUTROPHILS % (AUTO) 51.9 % (42-75); PLATELET COUNT 167 X10'3 (140-440); RED BLOOD COUNT 3.56 X10'6 (4.20-5.60); RED CELL DISTRIBUTION WIDTH 15.1 % (11.5-14.5); WHITE BLOOD COUNT 4.1 X10'3 (4.5-11.0)
[2024-08-10 17:47] LABS: ALANINE AMINOTRANSFERASE 6 U/L (12-78); ALBUMIN/GLOBULIN RATIO 0.9 (1.1-1.5); ALKALINE PHOSPHATASE 99 IU/L (46-116); ANION GAP 9 (8-16); BILIRUBIN,TOTAL 0.3 MG/DL (0.1-1.0); BLOOD UREA NITROGEN 10 MG/DL (7-18); BUN/CREATININE RATIO 10.3 (10.0-20.0); CALCIUM 8.2 MG/DL (8.5-10.1); CHLORIDE 107 MMOL/L (99-107); CREATININE 0.97 MG/DL (0.40-0.90); GLUCOSE 84 MG/DL (70-104); SODIUM 144 MMOL/L (135-145); TOTAL CARBON DIOXIDE 28.3 MMOL/L (24-32); TOTAL PROTEIN 6.4 G/DL (6.4-8.2); eCRCL 58 ML/MIN; eGFR 58 ML/MIN
[2024-08-10 17:49] LABS: ASPARTATE AMINO TRANSFERASE 15 U/L (10-37); POTASSIUM 4.4 MMOL/L (3.5-5.1); VALPROATE 95 UG/ML (50-100)
[2024-08-10] MEDS ORDERED: LEVE10002 PO (17:49)
[2024-08-10] MEDS: HYDROcodone/acetaminophen 10/325mg tab PO ONE (18:26)
[2024-08-10] MEDS: levetiracetam-NACL1000mg/100ml 100 ML IV SCH (18:27)
[2024-08-10 18:50] VITALS: BP 155/80; PULSE 83; RESP 9; TEMP 98.1; O2SAT 97
== END 2024-08-10 18:50 | disposition home or self-care (01) ==
LOC: ER 13:57
DX: G40.909 Epilepsy, unspecified, not intractable, without status epilepticus (principal); Z76.0 Encounter for issue of repeat prescription; I48.91 Unspecified atrial fibrillation; I10 Essential (primary) hypertension; J45.909 Unspecified asthma, uncomplicated; J44.9 Chronic obstructive pulmonary disease, unspecified; E11.9 Type 2 diabetes mellitus without complications; F41.9 Anxiety disorder, unspecified; F32.A Depression, unspecified; G89.29 Other chronic pain; F15.90 Other stimulant use, unspecified, uncomplicated; Z98.890 Other specified postprocedural states; Z88.1 Allergy status to other antibiotic agents; Z88.8 Allergy status to other drugs, medicaments and biological substances; Z88.6 Allergy status to analgesic agent; Z91.018 Allergy to other foods; Z79.4 Long term (current) use of insulin; Z79.899 Other long term (current) drug therapy
CPT/HCPCS: 36415; 80053; 80164; 80177; 85025; 96374; 99284; J1953; 96365

== ENCOUNTER 2024-08-12 23:37 | Inpatient (IN) | payer MEDICARE, MEDICAID ==
[~2024-08-12] VITALS: Ht 172.7 cm; Wt 83.1 kg
[~2024-08-12 23:37] MED LIST changes: +LEVE10002 PO
[2024-08-12] MEDS: normal saline 1000ML IV soln IV ONE (23:50)
[2024-08-13 00:38] LABS: BASOPHILS % (AUTO) 0.5 % (0-1); EOSINOPHILS # (AUTO) 0.1 X10'3 (0-0.9); EOSINOPHILS % (AUTO) 2.2 % (0-6); HEMATOCRIT 34.1 % (35.0-45.0); HEMOGLOBIN 11.7 g/dl (12.0-16.0); LYMPHOCYTES # (AUTO) 1.6 X10'3 (1.1-4.8); LYMPHOCYTES % (AUTO) 36.1 % (21-51); MEAN CORPUSCULAR HEMOGLOBIN 32.4 PG (27.0-31.0); MEAN CORPUSCULAR HGB CONC 34.2 g/dL (33.0-36.5); MEAN CORPUSCULAR VOLUME 94.8 FL (78-98); MEAN PLATELET VOLUME 7.6 FL (7.4-10.4); MONOCYTES # (AUTO) 0.2 X10'3 (0-0.9); MONOCYTES % (AUTO) 4.2 % (2-12); NEUTROPHILS # (AUTO) 2.6 X10'3 (1.8-7.7); PLATELET COUNT 174 X10'3 (140-440); RED CELL DISTRIBUTION WIDTH 15.3 % (11.5-14.5); WHITE BLOOD COUNT 4.5 X10'3 (4.5-11.0)
[2024-08-13 00:54] LABS: ALBUMIN 2.9 G/DL (3.4-5.0); ANION GAP 7 (8-16); BLOOD UREA NITROGEN 12 MG/DL (7-18); BUN/CREATININE RATIO 11.1 (10.0-20.0); CALCIUM 8.8 MG/DL (8.5-10.1); CHLORIDE 104 MMOL/L (99-107); CREATININE 1.08 MG/DL (0.40-0.90); GLUCOSE 144 MG/DL (70-104); MAGNESIUM 1.8 MG/DL (1.5-2.4); POTASSIUM 4.1 MMOL/L (3.5-5.1); SODIUM 138 MMOL/L (135-145); TOTAL CARBON DIOXIDE 26.8 MMOL/L (24-32); eCRCL 52 ML/MIN; eGFR 51 ML/MIN
[2024-08-13] MEDS: ondansetron 4mg rapidly disintigrating tab PO ONE (02:23)
[2024-08-13 02:41] LABS: BILIRUBIN,URINE NEGATIVE (Neg); CLARITY,URINE SLIGHTLY CLOUDY (Clear); COLOR,URINE YELLOW (Yellow); GLUCOSE, URINE NEGATIVE (Neg); KETONES,URINE NEGATIVE (Neg); LEUKOCYTE ESTERASE ,URINE SMALL (Neg); NITRITES, URINE NEGATIVE (Neg); OCCULT BLOOD,URINE NEGATIVE (Neg); PH,URINE 6.5 (4.8-8.0); PROTEIN,URINE NEGATIVE (Neg); UROBILINOGEN,URINE 0.2 E.U/dL (0.2-1.0)
[2024-08-13 02:43] LABS: UA COLLECTION TYPE CLN CATCH MIDSTREAM
[2024-08-13 02:47] LABS: BACTERIA,URINE 2+ /HPF (Neg); RBC,URINE NONE SEEN /HPF (0-2); SQUAMOUS EPITHELIAL CELL,UR MANY /LPF (FEW)
[2024-08-13] MEDS: normal saline 1000ML IV soln IVB ONE (04:20)
[2024-08-13] MEDS ORDERED: magnesium Cl slow-release 64mg tablet PO PRN (04:45)
[2024-08-13] MEDS ORDERED: potassium Cl 20 mEq SR tablet PO PRN ×2 (04:45)
[2024-08-13] MEDS ORDERED: mag hydrox/Alum hydrox/simeth 30ml oral suspension PO PRN (04:45)
[2024-08-13] MEDS ORDERED: acetaminophen 325mg tablet PO PRN (04:45)
[2024-08-13] MEDS ORDERED: potassium Cl 40MEQ/1/2NS 520ml 520 ML IV PRN (04:45)
[2024-08-13] MEDS ORDERED: magnesium sulf-water 2g/50mL 50 ML IV PRN (04:45)
[2024-08-13] MEDS ORDERED: magnesium sulf-water 4G/100mL 100 ML IV PRN (04:45)
[2024-08-13] MEDS ORDERED: magnesium hydroxide 30ml (MOM) UD suspension PO PRN (04:45)
[2024-08-13] MEDS ORDERED: BUSP30TA3 PO (06:07)
[2024-08-13] MEDS ORDERED: HYDR-3686 PO (06:07)
[2024-08-13] MEDS ORDERED: TIZA-189 PO (06:07)
[2024-08-13] MEDS ORDERED: IPRA3AMP31 NEB (06:09)
[2024-08-13] MEDS ORDERED: ipratropium/albuterol 3ml nebule NEB PRN (07:40)
[2024-08-13] MEDS: K and/or MAG REPLACEMENT MC SCH (08:00)
[2024-08-13] MEDS ORDERED: metoprolol tartrate 12.5mg (1/2 tablet) PO SCH (08:00)
[2024-08-13] MEDS: levetiracetam-NACL1000mg/100ml 100 ML IV ONE (09:34)
[2024-08-13] MEDS: enoxaparin 40mg/0.4ml syringe SUBCUT SCH (09:35)
[2024-08-13] MEDS: hydrOXYzine 25 MG tablet PO SCH (09:35)
[2024-08-13] MEDS: venlafaxine 25mg tablet PO SCH (09:35)
[2024-08-13] MEDS: atorvastatin 20mg tablet PO SCH (09:35)
[2024-08-13] MEDS: tizanidine 4mg tablet PO SCH (09:36)
[2024-08-13] MEDS: busPIRone 15mg tablet PO SCH (09:36)
[2024-08-13] MEDS: divalproex sodium 500mg tablet.DR PO SCH (09:37)
[2024-08-13] MEDS: docusate sod 100mg capsule PO SCH (09:37)
[2024-08-13] MEDS: ipratropium 0.5 MG/2.5ML nebule IH SCH (10:55)
[2024-08-13 11:07] LABS: HEMOGLOBIN A1C 5.7 % (4.5-6.2)
[2024-08-13 11:10] LABS: CHOL/HDL RATIO 3.1 (0.00-4.99); CHOLESTEROL 106 MG/DL (0-200); ETHANOL < 10 MG/DL (<10); HDL CHOLESTEROL 34 MG/DL (35-60); LDL CHOLESTEROL 51 MG/DL (50-100); THYROID STIMULATING HORMONE 4.72 ulU/ml (0.34-4.50); TRIGLYCERIDES 120 MG/DL (20-135)
[2024-08-13 11:32] LABS: OSMOLALITY 294 MOSM/K (280-300)
[2024-08-13 14:33] VITALS: PULSE 72; RESP 14; O2SAT 97
[2024-08-13 14:42] VITALS: PULSE 72; RESP 14
[2024-08-13] MEDS ORDERED: albuterol 2.5 MG/3 ML nebule NEB PRN (15:55)
[2024-08-13] MEDS: normal saline 1000ml 1,000 ML IV SCH (16:39)
[2024-08-13] MEDS ORDERED: metoprolol tartrate 50mg tablet PO SCH (20:00)
[2024-08-13] MEDS: quetiapine fumarate ER 300mg tablet PO SCH (20:56)
[2024-08-13] MEDS: levetiracetam 250mg tablet PO SCH (20:57)
[2024-08-13] MEDS: metoprolol tartrate 12.5mg (1/2 tablet) PO SCH (20:57)
[2024-08-13] MEDS: prazosin 5mg capsule PO SCH (20:57)
[2024-08-13 21:15] VITALS: PULSE 75; RESP 14; O2SAT 98
[2024-08-13 21:24] VITALS: PULSE 75; RESP 14
[2024-08-13 22:00] VITALS: BP_SYST 149; BP_SYST 161; BP_SYST 177; BP_DIAS 73; BP_DIAS 77; BP_DIAS 81; PULSE 79; PULSE 86; PULSE 92; RESP 16; TEMP 98.1; O2SAT 97
[2024-08-13] MEDS: HYDROcodone/acetaminophen 5mg/325mg tablet PO ONE (22:55)
[2024-08-14] VITALS (11 sets, daily range): BP systolic 85–165; BP diastolic 44–80; PULSE 68–99; RESP 15–18; TEMP 97.6–98.7; O2SAT 92–97
[2024-08-14] MEDS: pantoprazole 40mg Tablet.DR PO SCH (07:55)
[2024-08-14] MEDS: CefTRIAXone/D5W-Rocephin 1gm 50 ML IV SCH (10:46)
[2024-08-14] MEDS: normal saline 1000ml 1,000 ML IV ONE ×2 (13:19→13:22)
[2024-08-14 13:57] LABS: SODIUM,URINE RANDOM 76 MEQ/L; URINE AMPHETAMINE SCREEN NEGATIVE (Neg); URINE BARBITUATE SCREEN NEGATIVE (Neg); URINE BENZODIAZEPINES SCREEN NEGATIVE (Neg); URINE CANNABINOID SCREEN NEGATIVE (Neg); URINE COCAINE SCREEN NEGATIVE (Neg); URINE METHADONE SCREEN NEGATIVE (Neg); URINE OPIATE SCREEN POSITIVE (Neg); URINE PHENCYCLIDINE SCREEN NEGATIVE (Neg)
[2024-08-14 14:07] LABS: OSMOLALITY UA 363 MOSM/K (50-1400)
[2024-08-14] MEDS ORDERED: metoprolol succinate 25mg (24-HOUR) SR. Tablet PO SCH ×2 (18:50→21:10)
[2024-08-14] MEDS: apixaban 5mg tablet PO SCH (21:27)
[2024-08-14] MEDS: metoprolol succinate 25mg (24-HOUR) SR. Tablet PO SCH (21:41)
[2024-08-15] VITALS (9 sets, daily range): BP systolic 114–169; BP diastolic 62–80; PULSE 71–89; RESP 14–17; TEMP 98–98.6; O2SAT 92–96
[2024-08-15] MEDS: normal saline 1000ml 1,000 ML IV SCH (02:45)
[2024-08-15] MEDS: FLU VACC TS2024-25(6MOS UP)/PF 45 MCG/0.5 ML SYRINGE IMVAC ONE ×2 (07:40→10:00)
[2024-08-15] MEDS ORDERED: metoprolol succinate 25mg (24-HOUR) SR. Tablet PO SCH (08:00)
[2024-08-15] MEDS: lactobacillus rhamnosus 10,000 MMU CELLS/CAPSULE PO SCH (08:27)
[2024-08-15 12:32] LABS: BASOPHILS % (AUTO) 0.8 % (0-1); EOSINOPHILS # (AUTO) 0.1 X10'3 (0-0.9); EOSINOPHILS % (AUTO) 2.6 % (0-6); HEMATOCRIT 31.4 % (35.0-45.0); HEMOGLOBIN 10.7 g/dl (12.0-16.0); LYMPHOCYTES # (AUTO) 1.9 X10'3 (1.1-4.8); LYMPHOCYTES % (AUTO) 45.4 % (21-51); MEAN CORPUSCULAR HEMOGLOBIN 32.9 PG (27.0-31.0); MEAN CORPUSCULAR VOLUME 96.6 FL (78-98); MEAN PLATELET VOLUME 7.7 FL (7.4-10.4); MONOCYTES # (AUTO) 0.3 X10'3 (0-0.9); MONOCYTES % (AUTO) 7.1 % (2-12); NEUTROPHILS # (AUTO) 1.8 X10'3 (1.8-7.7); NEUTROPHILS % (AUTO) 44.1 % (42-75); PLATELET COUNT 182 X10'3 (140-440); RED BLOOD COUNT 3.25 X10'6 (4.20-5.60); RED CELL DISTRIBUTION WIDTH 15.5 % (11.5-14.5); WHITE BLOOD COUNT 4.1 X10'3 (4.5-11.0)
[2024-08-15 12:52] LABS: ALANINE AMINOTRANSFERASE 6 U/L (12-78); ALBUMIN 2.4 G/DL (3.4-5.0); ALBUMIN/GLOBULIN RATIO 0.8 (1.1-1.5); ALKALINE PHOSPHATASE 82 IU/L (46-116); ANION GAP 1 (8-16); ASPARTATE AMINO TRANSFERASE 10 U/L (10-37); BILIRUBIN,TOTAL 0.1 MG/DL (0.1-1.0); BLOOD UREA NITROGEN 13 MG/DL (7-18); BUN/CREATININE RATIO 13.1 (10.0-20.0); CALCIUM 7.9 MG/DL (8.5-10.1); CHLORIDE 111 MMOL/L (99-107); CREATININE 0.99 MG/DL (0.40-0.90); GLUCOSE 112 MG/DL (70-104); SODIUM 143 MMOL/L (135-145); TOTAL CARBON DIOXIDE 30.8 MMOL/L (24-32); TOTAL PROTEIN 5.4 G/DL (6.4-8.2); VALPROATE 69 UG/ML (50-100); eCRCL 57 ML/MIN; eGFR 56 ML/MIN
[2024-08-15 13:05] LABS: POTASSIUM 4.3 MMOL/L (3.5-5.1)
[2024-08-15] MEDS: normal saline 1000ml 1,000 ML IV ONE (13:59)
[2024-08-16 03:30] VITALS: PULSE 71; RESP 16; O2SAT 92
[2024-08-16 03:37] VITALS: PULSE 69; RESP 16
[2024-08-16 06:00] VITALS: BP 165/81; PULSE 74; RESP 15; TEMP 98.6; O2SAT 93
[2024-08-16 08:11] VITALS: PULSE 72; RESP 20; O2SAT 93
[2024-08-16 08:16] VITALS: PULSE 74; RESP 20
[2024-08-16 09:14] LABS: BASOPHILS % (AUTO) 1.4 % (0-1); EOSINOPHILS # (AUTO) 0.1 X10'3 (0-0.9); EOSINOPHILS % (AUTO) 3.3 % (0-6); HEMATOCRIT 31.6 % (35.0-45.0); HEMOGLOBIN 10.8 g/dl (12.0-16.0); LYMPHOCYTES # (AUTO) 1.7 X10'3 (1.1-4.8); MEAN CORPUSCULAR HEMOGLOBIN 32.4 PG (27.0-31.0); MEAN CORPUSCULAR HGB CONC 34.1 g/dL (33.0-36.5); MEAN CORPUSCULAR VOLUME 95.1 FL (78-98); MEAN PLATELET VOLUME 7.1 FL (7.4-10.4); MONOCYTES # (AUTO) 0.2 X10'3 (0-0.9); MONOCYTES % (AUTO) 6.1 % (2-12); NEUTROPHILS # (AUTO) 1.4 X10'3 (1.8-7.7); NEUTROPHILS % (AUTO) 41.2 % (42-75); PLATELET COUNT 164 X10'3 (140-440); RED BLOOD COUNT 3.32 X10'6 (4.20-5.60); RED CELL DISTRIBUTION WIDTH 15.8 % (11.5-14.5); WHITE BLOOD COUNT 3.5 X10'3 (4.5-11.0)
[2024-08-16 09:31] LABS: ALANINE AMINOTRANSFERASE 9 U/L (12-78); ALBUMIN 2.4 G/DL (3.4-5.0); ALBUMIN/GLOBULIN RATIO 0.8 (1.1-1.5); ALKALINE PHOSPHATASE 76 IU/L (46-116); ANION GAP 4 (8-16); ASPARTATE AMINO TRANSFERASE 11 U/L (10-37); BILIRUBIN,TOTAL 0.2 MG/DL (0.1-1.0); BLOOD UREA NITROGEN 16 MG/DL (7-18); BUN/CREATININE RATIO 19.3 (10.0-20.0); CALCIUM 8.1 MG/DL (8.5-10.1); CHLORIDE 110 MMOL/L (99-107); CREATININE 0.83 MG/DL (0.40-0.90); GLUCOSE 89 MG/DL (70-104); SODIUM 143 MMOL/L (135-145); TOTAL CARBON DIOXIDE 28.8 MMOL/L (24-32); TOTAL PROTEIN 5.3 G/DL (6.4-8.2); eCRCL 68 ML/MIN; eGFR 69 ML/MIN
[2024-08-16] MEDS ORDERED: CEFD300C3 PO (13:17)
[2024-08-16] MEDS ORDERED: APIX5TAB3 PO (13:17)
[2024-08-16] MEDS ORDERED: LACT1CAP26 PO (13:17)
[2024-08-16] MEDS ORDERED: METO-395 PO (13:17)
== END 2024-08-16 16:57 | disposition home health service (06) | DRG 100 ==
LOC: ER 23:38 → ED HOLD 08-13 04:49 → ORTHO 4S 08-13 19:15
PROVIDERS: ADMIT Internal Medicine Sleep Medicine; ATTEND Family Medicine
DX: R56.9 Unspecified convulsions (principal); N17.0 Acute kidney failure with tubular necrosis; I95.1 Orthostatic hypotension; J44.89 Other specified chronic obstructive pulmonary disease; F32.A Depression, unspecified; F41.9 Anxiety disorder, unspecified; G89.29 Other chronic pain; I12.9 Hypertensive chronic kidney disease with stage 1 through stage 4 chronic kidney disease, or unspecified chronic kidney disease; E11.22 Type 2 diabetes mellitus with diabetic chronic kidney disease; N18.31 Chronic kidney disease, stage 3a; I48.91 Unspecified atrial fibrillation; Z87.891 Personal history of nicotine dependence; Z88.1 Allergy status to other antibiotic agents; Z88.6 Allergy status to analgesic agent; Z98.891 History of uterine scar from previous surgery; Z99.3 Dependence on wheelchair; Z79.899 Other long term (current) drug therapy; Z88.8 Allergy status to other drugs, medicaments and biological substances; Z91.013 Allergy to seafood; Z79.82 Long term (current) use of aspirin; Z79.4 Long term (current) use of insulin; I49.9 Cardiac arrhythmia, unspecified
CPT/HCPCS: 36415; 70450; 71045; 80048; 80053; 80061; 80164; 80305; 80320; 81001; 82140; 82570; 83036; 83605; 83735; 83930; 83935; 84133; 84145; 84300; 84443; 84484; 85025; 87040; 87077; 87081; 87088; 87186; 87207; 90686; 93005; 93306; 93880; 93971; 94640; 94760; 97161; 97530; 99285; A6154; G0378; J0696; J1650; J1953; J7030; Q0177

== ENCOUNTER 2024-10-25 16:41 | Emergency (ER) | payer MEDICARE, MEDICAID ==
[~2024-10-25] VITALS: Ht 167.6 cm; Wt 84.1 kg
[~2024-10-25 16:41] MED LIST changes: +APIX5TAB3 PO; +BUSP30TA3 PO; -DIVA125T31 PO; +HYDR-3686 PO; +IPRA3AMP31 NEB; +LACT1CAP26 PO; -LEVE10002 PO; +METO-395 PO; -METO25TA6 PO; +TIZA-189 PO
[2024-10-25 19:23] LABS: BASOPHILS # (AUTO) 0.1 X10'3 (0-0.2); EOSINOPHILS # (AUTO) 0.1 X10'3 (0-0.9); EOSINOPHILS % (AUTO) 1.9 % (0-6); HEMATOCRIT 43.9 % (35.0-45.0); HEMOGLOBIN 14.3 g/dl (12.0-16.0); LYMPHOCYTES # (AUTO) 2.2 X10'3 (1.1-4.8); MEAN CORPUSCULAR HEMOGLOBIN 32.1 PG (27.0-31.0); MEAN CORPUSCULAR HGB CONC 32.5 g/dL (33.0-36.5); MEAN CORPUSCULAR VOLUME 98.9 FL (78-98); MEAN PLATELET VOLUME 7.6 FL (7.4-10.4); MONOCYTES # (AUTO) 0.4 X10'3 (0-0.9); NEUTROPHILS # (AUTO) 2.8 X10'3 (1.8-7.7); NEUTROPHILS % (AUTO) 50.1 % (42-75); PLATELET COUNT 281 X10'3 (140-440); RED BLOOD COUNT 4.45 X10'6 (4.20-5.60); RED CELL DISTRIBUTION WIDTH 15.6 % (11.5-14.5); WHITE BLOOD COUNT 5.6 X10'3 (4.5-11.0)
[2024-10-25 19:32] LABS: ALANINE AMINOTRANSFERASE 32 U/L (12-78); ALBUMIN 3.7 G/DL (3.4-5.0); ALBUMIN/GLOBULIN RATIO 0.8 (1.1-1.5); ALKALINE PHOSPHATASE 105 IU/L (46-116); ANION GAP 9 (8-16); ASPARTATE AMINO TRANSFERASE 16 U/L (10-37); BILIRUBIN,TOTAL 0.3 MG/DL (0.1-1.0); BLOOD UREA NITROGEN 17 MG/DL (7-18); BUN/CREATININE RATIO 24.3 (10.0-20.0); CALCIUM 9.5 MG/DL (8.5-10.1); CHLORIDE 105 MMOL/L (99-107); GLUCOSE 110 MG/DL (70-104); LIPASE 38 U/L (16-77); SODIUM 138 MMOL/L (135-145); TOTAL CARBON DIOXIDE 24.2 MMOL/L (24-32); TOTAL PROTEIN 8.2 G/DL (6.4-8.2); eCRCL 75 ML/MIN; eGFR 84 ML/MIN
[2024-10-25] MEDS: HYDROcodone/acetaminophen 10/325mg tab PO ONE (19:51)
[2024-10-25 20:12] VITALS: BP 180/70; PULSE 84; RESP 17; TEMP 97.1; O2SAT 99
== END 2024-10-25 20:13 | disposition home or self-care (01) ==
LOC: ER 16:42
DX: R51.9 Headache, unspecified (principal); E11.9 Type 2 diabetes mellitus without complications; I10 Essential (primary) hypertension; I48.91 Unspecified atrial fibrillation; G89.29 Other chronic pain; J45.909 Unspecified asthma, uncomplicated; J44.9 Chronic obstructive pulmonary disease, unspecified; F32.A Depression, unspecified; F41.9 Anxiety disorder, unspecified; F15.90 Other stimulant use, unspecified, uncomplicated; Z88.1 Allergy status to other antibiotic agents; Z91.041 Radiographic dye allergy status; Z88.6 Allergy status to analgesic agent; Z91.018 Allergy to other foods; Z79.899 Other long term (current) drug therapy; Z79.4 Long term (current) use of insulin; Z98.890 Other specified postprocedural states
CPT/HCPCS: 36415; 70450; 80053; 83690; 85025; 99284

== ENCOUNTER 2024-12-02 09:23 | Emergency (ER) | payer MEDICARE, MEDICAID ==
[~2024-12-02] VITALS: Ht 172.7 cm; Wt 127.2 kg
[2024-12-02 09:39] LABS: BASOPHILS % (AUTO) 0.6 % (0-1); EOSINOPHILS # (AUTO) 0.1 X10'3 (0-0.9); EOSINOPHILS % (AUTO) 1.8 % (0-6); HEMATOCRIT 38.3 % (35.0-45.0); HEMOGLOBIN 12.8 g/dl (12.0-16.0); LYMPHOCYTES # (AUTO) 2.6 X10'3 (1.1-4.8); LYMPHOCYTES % (AUTO) 42.9 % (21-51); MEAN CORPUSCULAR HEMOGLOBIN 32.5 PG (27.0-31.0); MEAN CORPUSCULAR HGB CONC 33.5 g/dL (33.0-36.5); MEAN PLATELET VOLUME 6.9 FL (7.4-10.4); MONOCYTES # (AUTO) 0.3 X10'3 (0-0.9); MONOCYTES % (AUTO) 4.4 % (2-12); NEUTROPHILS # (AUTO) 3.1 X10'3 (1.8-7.7); NEUTROPHILS % (AUTO) 50.3 % (42-75); PLATELET COUNT 229 X10'3 (140-440); RED BLOOD COUNT 3.95 X10'6 (4.20-5.60); RED CELL DISTRIBUTION WIDTH 13.6 % (11.5-14.5); WHITE BLOOD COUNT 6.1 X10'3 (4.5-11.0)
[2024-12-02 10:18] LABS: ALANINE AMINOTRANSFERASE 8 U/L (12-78); ALBUMIN 2.9 G/DL (3.4-5.0); ALBUMIN/GLOBULIN RATIO 0.8 (1.1-1.5); ALKALINE PHOSPHATASE 86 IU/L (46-116); ANION GAP 8 (8-16); ASPARTATE AMINO TRANSFERASE 9 U/L (10-37); BILIRUBIN,TOTAL 0.3 MG/DL (0.1-1.0); BLOOD UREA NITROGEN 38 MG/DL (7-18); BUN/CREATININE RATIO 32.5 (10.0-20.0); CALCIUM 7.8 MG/DL (8.5-10.1); CHLORIDE 107 MMOL/L (99-107); CREATININE 1.17 MG/DL (0.40-0.90); GLUCOSE 149 MG/DL (70-104); POTASSIUM 4.2 MMOL/L (3.5-5.1); PRO BRAIN NATRIURETIC PEPTIDE 93 PG/ML (0-125); SODIUM 138 MMOL/L (135-145); TOTAL CARBON DIOXIDE 23.1 MMOL/L (24-32); TOTAL PROTEIN 6.4 G/DL (6.4-8.2); eCRCL 48 ML/MIN; eGFR 46 ML/MIN
[2024-12-02 10:36] VITALS: TEMP 98.2
[2024-12-02 13:59] LABS: BILIRUBIN,URINE NEGATIVE (Neg); CLARITY,URINE CLEAR (Clear); COLOR,URINE YELLOW (Yellow); GLUCOSE, URINE NEGATIVE (Neg); KETONES,URINE TRACE mg/dl (Neg); LEUKOCYTE ESTERASE ,URINE NEGATIVE (Neg); NITRITES, URINE NEGATIVE (Neg); OCCULT BLOOD,URINE NEGATIVE (Neg); PROTEIN,URINE NEGATIVE (Neg); UROBILINOGEN,URINE 0.2 E.U/dL (0.2-1.0)
[2024-12-02 14:01] LABS: UA COLLECTION TYPE STRAIGHT CATH
[2024-12-02 16:07] VITALS: BP 140/65; PULSE 66; RESP 18; O2SAT 95
== END 2024-12-02 16:37 | disposition home or self-care (01) ==
LOC: ER 09:23
DX: R56.9 Unspecified convulsions (principal); E11.9 Type 2 diabetes mellitus without complications; I10 Essential (primary) hypertension; I48.91 Unspecified atrial fibrillation; J44.9 Chronic obstructive pulmonary disease, unspecified; Z87.891 Personal history of nicotine dependence; Z88.6 Allergy status to analgesic agent; Z88.1 Allergy status to other antibiotic agents; Z88.8 Allergy status to other drugs, medicaments and biological substances; Z91.041 Radiographic dye allergy status
CPT/HCPCS: 36415; 71045; 73502; 80053; 81003; 83880; 84484; 85025; 93005; 99285; C1758

== ENCOUNTER 2025-01-22 20:53 | Emergency (ER) | payer MEDICARE, MEDICAID ==
[~2025-01-22] VITALS: Ht 172.7 cm; Wt 100.5 kg
[~2025-01-22 20:53] MED LIST changes: +LEVE100023 PO; -LEVE10006 PO
--- NOTE | 2025-01-22 22:07 | ELECTROCARDIOGRAPH REPORT ---
[facility] Test Date: 2025-01-22 Test Time: 22:05:24 Pat Name: JABARI PEÑA Department: [facility]- Patient ID: [id number] Room: Gender: F Energy Conservation Representative: : 1960 Requested By: GEN LIM Order Number: [id number] Reading MD: Dr. Gen Lim Measurements Intervals [place] Rate: 102 P: 58 GA: 163 QRS: 40 QRSD: 99 T: 45 QT: 355 QTc: 463 Interpretive Statements Sinus tachycardia Low voltage, precordial leads Abnormal R-wave progression, early transition Electronically Signed On 01-22-2025 23:19:[address] Gen Lim Please click the below link to view image of tracing.
[2025-01-22 22:21] LABS: BASOPHILS % (AUTO) 0.8 % (0-1); EOSINOPHILS # (AUTO) 0.2 X10'3 (0-0.9); EOSINOPHILS % (AUTO) 4.4 % (0-6); HEMOGLOBIN 12.3 g/dl (12.0-16.0); LYMPHOCYTES # (AUTO) 1.8 X10'3 (1.1-4.8); LYMPHOCYTES % (AUTO) 42.3 % (21-51); MEAN CORPUSCULAR HEMOGLOBIN 32.1 PG (27.0-31.0); MEAN CORPUSCULAR HGB CONC 34.1 g/dL (33.0-36.5); MEAN CORPUSCULAR VOLUME 94.1 FL (78-98); MEAN PLATELET VOLUME 6.7 FL (7.4-10.4); MONOCYTES # (AUTO) 0.3 X10'3 (0-0.9); NEUTROPHILS % (AUTO) 45.5 % (42-75); PLATELET COUNT 239 X10'3 (140-440); RED BLOOD COUNT 3.83 X10'6 (4.20-5.60); RED CELL DISTRIBUTION WIDTH 14.7 % (11.5-14.5); WHITE BLOOD COUNT 4.3 X10'3 (4.5-11.0)
[2025-01-22 22:25] LABS: ALBUMIN 2.7 G/DL (3.4-5.0); ANION GAP 5 (8-16); BLOOD UREA NITROGEN 23 MG/DL (7-18); BUN/CREATININE RATIO 20.9 (10.0-20.0); CALCIUM 8.6 MG/DL (8.5-10.1); CHLORIDE 109 MMOL/L (99-107); GLUCOSE 165 MG/DL (70-104); MAGNESIUM 1.8 MG/DL (1.5-2.4); POTASSIUM 3.7 MMOL/L (3.5-5.1); SODIUM 143 MMOL/L (135-145); TOTAL CARBON DIOXIDE 28.6 MMOL/L (24-32); eCRCL 51 ML/MIN; eGFR 50 ML/MIN
[2025-01-22 23:17] LABS: BILIRUBIN,URINE SMALL (Neg); CLARITY,URINE CLOUDY (Clear); COLOR,URINE YELLOW (Yellow); GLUCOSE, URINE NEGATIVE (Neg); KETONES,URINE 15 mg/dl (Neg); LEUKOCYTE ESTERASE ,URINE NEGATIVE (Neg); NITRITES, URINE POSITIVE (Neg); OCCULT BLOOD,URINE NEGATIVE (Neg); PROTEIN,URINE TRACE mg/dl (Neg)
[2025-01-22 23:20] VITALS: BP 149/69; PULSE 98; RESP 16; TEMP 98.2; O2SAT 99
[2025-01-22 23:21] LABS: UA COLLECTION TYPE CLN CATCH MIDSTREAM
[2025-01-22 23:23] LABS: BACTERIA,URINE 4+ /HPF (Neg); CAL OXALATE CRYSTALS FEW /HPF (NEGATIVE); SQUAMOUS EPITHELIAL CELL,UR FEW /LPF (FEW)
[2025-01-22] MEDS: ondansetron 4mg rapidly disintigrating tab PO ONE (23:29)
[2025-01-22 23:32] LABS: URINE AMPHETAMINE SCREEN NEGATIVE (Neg); URINE BARBITUATE SCREEN NEGATIVE (Neg); URINE BENZODIAZEPINES SCREEN NEGATIVE (Neg); URINE CANNABINOID SCREEN NEGATIVE (Neg); URINE COCAINE SCREEN NEGATIVE (Neg); URINE METHADONE SCREEN NEGATIVE (Neg); URINE OPIATE SCREEN NEGATIVE (Neg); URINE PHENCYCLIDINE SCREEN NEGATIVE (Neg)
[2025-01-23] MEDS ORDERED: CEPH-585 PO (00:06)
--- NOTE | 2025-01-23 00:07 | Physician Documentation ---
History of Present Illness ~ Chief Complaint: Weakness Stated Complaint: DIZZINESS Time Seen by MD: 23:51 OK to notify your PCP?: Yes Primary Medical Doctor: SCOTTIE Crespo, ER HPI Patient presents to the emergency room for evaluation of generalized weakness and not feeling well. This has been going on for the past week. History of urinary tract infections. Denies any abdominal or back pain but does state that she has intermittent swelling in her abdomen that has been going on for years. Medication Reconciliation Allergies: Coded Allergies: vancomycin (Verified Allergy, Intermediate, 08/10/24) chlorpromazine (Verified Allergy, Mild, RASH, 08/10/24) Fish Containing Products (Verified Allergy, Unknown, 08/10/24) NSAIDS (Non-Steroidal Anti-Inflamma (Verified Allergy, Unknown, 08/10/24) aspirin (Verified Allergy, Unknown, SOB, 08/10/24) black pepper (Verified Allergy, Unknown, 08/10/24) iodine (Verified Allergy, Unknown, 10/11/23) Scheduled Apixaban (Eliquis), 5 MG PO BID Atorvastatin Calcium* (Lipitor*), 1 TAB PO DAILY, (Reported) Buspirone HCl (Buspirone HCl), 1 TAB PO BID, (Reported) Divalproex Sodium DR* (Depakote DR*), 1 TAB PO Q12H, (Reported) Ferrous Sulfate (Ferosul), 325 MG PO BID, (Reported) Hydroxyzine Hcl* (Atarax*), 1 TAB PO QID, (Reported) Insulin Glargine,Hum.rec.anlog (Lantus), 25 UNITS SQ HS, (Reported) Insulin Lispro (Humalog), 5 UNITS SQ ACHS, (Reported) Lactobacillus Rhamnosus (Culturelle), 10,000 MMU PO DAILY Levetiracetam (Levetiracetam), 1 TAB PO BID, (Reported) Metoprolol Succinate (Metoprolol Succinate), 12.5 MG PO DAILY Omeprazole (Prilosec), 1 CAP PO DAILY, (Reported) Prazosin HCl (Prazosin HCl), 1 CAP PO HS, (Reported) Quetiapine Fumarate (Seroquel Xr), 2 TAB PO HS, (Reported) Tiotropium [place] (Spiriva), 1 CAP INH DAILY, (Reported) Tizanidine Hcl (Zanaflex), 1 TAB PO TID, (Reported) Venlafaxine Hcl (Effexor), 3 TAB PO DAILY, (Reported) Scheduled PRN Ipratropium/Albuterol Sulfate (Duoneb 2.5-0.5 Mg/3 Ml Soln), 1 VIAL NEB Q6H PRN for wheezing, (Reported) Past Medical History Past Medical History: Seizures, Atrial Fibrillation, Hypertension, Asthma, COPD, Hepatitis C, Pancreatitis, Diabetes, Chronic Pain, Extremity Fracture, Anxiety, Depression Past Surgical History: abdominal surgery, orthopedic surgeries Other Past Surgical History: Hepatic surgeries Patient History: FH: asthma FATHER, FH: breast cancer MOTHER, FH: diabetes mellitus GRANDFATHER OR GRANDMOTHER, Name: Grandmother, FH: heart disease FATHER, Other Past Family History: Cancer in mother Alcohol Use: None Drug Use: none, methamphetamine Lives with: Family Lives In: Home Occupation: disabled Past Social History: Quit smoking 17 years ago, quit methamphetamines 13 years Review of Systems ROS All review of systems negative except as per HPI Physical Exam Vital Signs: Temperature: 98.2, Source: Oral, Heart Rate: 98, Respiratory Rate: 16, BP: 149/69, Pulse Oximetry: 99, Weight: 100.500 Oxygen Flow Rate: 0 Physical Exam General: Patient is awake, alert, oriented x4 in no acute distress Head: Normocephalic and atraumatic. Eyes: Conjunctival normal. EOMI. PERRL. ENT: Mucous membranes moist. Neck: Supple, trachea is midline. Chest: Clear to auscultation bilaterally without rales, rhonchi, or wheezes. There is no accessory muscle use or retractions. Cardiac: RRR without murmurs, gallops, or rubs. Abd: Soft, nondistended, nontender, with normoactive bowel sounds. No guarding, rebound, or rigidity. Back: No CVA tenderness Progress Results/Orders Results/Orders Orders - FERNANDO BENNETT MD Normal Saline 1,000ml Iv Bolus (01/23/25 00:00) Ceftriaxone 2gm/D5w 50ml Bag (Rocephin 2 (01/23/25 00:00) Completed Orders - FERNANDO BENNETT MD Ondansetron Disint. Tablet (Zofran Odt T (01/22/25 23:25) Medications Received in ER Medications (Trade) Dose Ordered Sig/Misbah Route PRN Reason Start Time Stop Time Status Last Admin Dose Admin (Zofran ODT tablet) 4 mg ONCE ONCE PO 01/22/25 23:25 01/22/25 23:26 DC 01/22/25 23:29 4 MG Vital Signs 01/22/25 01/22/25 01/22/25 21:02 21:07 23:20 Temp 98.2 98.2 98.2 Pulse 106 107 98 Resp 14 14 16 B/P (MAP) 172/134 172/134 (147) 149/69 (95) Pulse Ox 95 96 99 O2 Flow Rate 0 0 0 Laboratory Tests Test 01/22/25 22:09 01/22/25 23:00 White Blood Count 4.3 L Red Blood Count 3.83 L Hemoglobin 12.3 Hematocrit 36.0 Mean Corpuscular Volume 94.1 Mean Corpuscular Hemoglobin 32.1 H Mean Corpuscular Hemoglobin Concent 34.1 Red Cell Distribution Width 14.7 H Platelet Count 239 Mean Platelet Volume 6.7 L Neutrophils (%) (Auto) 45.5 Lymphocytes (%) (Auto) 42.3 Monocytes (%) (Auto) 7.0 Eosinophils (%) (Auto) 4.4 Basophils (%) (Auto) 0.8 Neutrophils # (Auto) 2.0 Lymphocytes # (Auto) 1.8 Monocytes # (Auto) 0.3 Eosinophils # (Auto) 0.2 Basophils # (Auto) 0.0 CBC Comment Sodium Level 143 Potassium Level 3.7 Chloride Level 109 H Carbon Dioxide Level 28.6 Anion Gap 5 L Blood Urea Nitrogen 23 H Creatinine 1.10 H Estimated GFR/1.73 m2 50 BUN/Creatinine Ratio 20.9 H Glucose Level 165 H Calcium Level 8.6 Magnesium Level 1.8 Troponin I High Sensitivity 5 Albumin 2.7 L Chemistry Comments Urine Specimen Description Cln catch midstream Urine Color Yellow Urine Clarity Cloudy Urine pH 6.0 Urine Specific [place] >=1.030 Urine Protein Trace Urine Glucose (UA) Negative Urine Ketones 15 H Urine Occult Blood Negative Urine Nitrite Positive H Urine Bilirubin Small Urine Urobilinogen 1.0 Urine Leukocyte Esterase Negative Urine RBC 3-10 Urine WBC 5-10 H Urine Squamous Epithelial Cells Few Urine Calcium Oxalate Crystals Few Urine Bacteria 4+ Urine Culture Indicated Indicated Volume Urine Centrifuged 10 ml Urine Comment Urine Opiates Screen Negative Urine Methadone Screen Negative Urine Fentanyl Screen Negative Urine Barbiturates Screen Negative Urine Phencyclidine Screen Negative Urine Amphetamines Screen Negative Urine Benzodiazepines Screen Negative Urine Cocaine Screen Negative Urine Cannabinoids Screen Negative Drug Screen Comment Medical Decision Making Findings Patient presents to the emergency room for evaluation of generalized weakness. Differentials include but are not limited to dehydration, urinary tract infection, electrolyte disturbances, deconditioning therefore emergent labs ordered. Labs reassuring for no major pathologic derangements/sepsis but she does have a urinary tract infection is mildly dehydrated. She has received IV fluids and IV Rocephin and I believe she will do well on outpatient basis. Departure Disposition: HOME / SELF CARE / HOMELESS Impression: Primary Impression: Acute urinary tract infection Condition: Stable Discharge Instructions: Urinary Tract Infection, Adult Referrals: NO PRIMARY CARE PROVIDER (PCP) Prescriptions Cephalexin*Monohydrate* (Keflex*) 500 Mg Capsule 1 CAP PO Q12H for 10 Days, #20 CAP Prov: FERNANDO BENNETT MD 01/23/25 Education Educated: Patient Educated regarding: diagnosis, need for follow up Signature Scribe Signature: No scribe Attestation: The note accurately reflects work and decisions made by me.Fernando Bennett MD 01/23/25 00:07 FERNANDO BENNETT MD January 23, 2025 00:07
[2025-01-23] MEDS: normal saline 1000ml 1,000 ML IV ONE (00:35)
[2025-01-23] MEDS: CefTRIAXone 2gm/D5W 50ml BAG 50 ML IV ONE (00:38)
[2025-01-23] MEDS: CefTRIAXone 1000mg IM Kit (w/lidocaine diluent) IM ONE (00:46)
== END 2025-01-23 05:50 | disposition home or self-care (01) ==
LOC: ER 20:54
DX: N39.0 Urinary tract infection, site not specified (principal); E11.9 Type 2 diabetes mellitus without complications; I10 Essential (primary) hypertension; I48.91 Unspecified atrial fibrillation; J44.9 Chronic obstructive pulmonary disease, unspecified; Z87.891 Personal history of nicotine dependence; Z88.1 Allergy status to other antibiotic agents; Z88.6 Allergy status to analgesic agent; Z88.8 Allergy status to other drugs, medicaments and biological substances; Z91.041 Radiographic dye allergy status
CPT/HCPCS: 36415; 80048; 80305; 81001; 83735; 84484; 85025; 87088; 93005; 96372; 99284; J0696; J7030; 87186

== ENCOUNTER 2025-02-11 11:01 | Emergency (ER) | payer MEDICARE, MEDICAID ==
[~2025-02-11] VITALS: Ht 172.7 cm; Wt 100.0 kg
[2025-02-11] MEDS: levetiracetam 250mg tablet PO ONE (13:56)
[2025-02-11 14:06] LABS: BASOPHILS % (AUTO) 0.4 % (0-1); EOSINOPHILS # (AUTO) 0.3 X10'3 (0-0.9); EOSINOPHILS % (AUTO) 4.6 % (0-6); HEMATOCRIT 35.5 % (35.0-45.0); HEMOGLOBIN 11.7 g/dl (12.0-16.0); LYMPHOCYTES # (AUTO) 2.5 X10'3 (1.1-4.8); LYMPHOCYTES % (AUTO) 42.8 % (21-51); MEAN CORPUSCULAR HEMOGLOBIN 31.5 PG (27.0-31.0); MEAN CORPUSCULAR VOLUME 95.4 FL (78-98); MEAN PLATELET VOLUME 6.3 FL (7.4-10.4); MONOCYTES # (AUTO) 0.6 X10'3 (0-0.9); MONOCYTES % (AUTO) 9.5 % (2-12); NEUTROPHILS # (AUTO) 2.5 X10'3 (1.8-7.7); NEUTROPHILS % (AUTO) 42.7 % (42-75); PLATELET COUNT 329 X10'3 (140-440); RED BLOOD COUNT 3.73 X10'6 (4.20-5.60); RED CELL DISTRIBUTION WIDTH 15.4 % (11.5-14.5); WHITE BLOOD COUNT 5.9 X10'3 (4.5-11.0)
[2025-02-11 14:33] LABS: ALANINE AMINOTRANSFERASE 11 U/L (12-78); ALBUMIN 3.1 G/DL (3.4-5.0); ALBUMIN/GLOBULIN RATIO 0.8 (1.1-1.5); ALKALINE PHOSPHATASE 89 IU/L (46-116); ANION GAP 9 (8-16); ASPARTATE AMINO TRANSFERASE 16 U/L (10-37); BILIRUBIN,TOTAL 0.4 MG/DL (0.1-1.0); BLOOD UREA NITROGEN 17 MG/DL (7-18); BUN/CREATININE RATIO 21.5 (10.0-20.0); CALCIUM 9.4 MG/DL (8.5-10.1); CHLORIDE 109 MMOL/L (99-107); CREATININE 0.79 MG/DL (0.40-0.90); GLUCOSE 73 MG/DL (70-104); POTASSIUM 3.8 MMOL/L (3.5-5.1); SODIUM 145 MMOL/L (135-145); TOTAL CARBON DIOXIDE 26.9 MMOL/L (24-32); TOTAL PROTEIN 6.9 G/DL (6.4-8.2); eCRCL 71 ML/MIN; eGFR 73 ML/MIN
[2025-02-11 15:59] LABS: BILIRUBIN,URINE SMALL (Neg); CLARITY,URINE CLEAR (Clear); COLOR,URINE YELLOW (Yellow); GLUCOSE, URINE NEGATIVE (Neg); KETONES,URINE 15 mg/dl (Neg); LEUKOCYTE ESTERASE ,URINE NEGATIVE (Neg); NITRITES, URINE NEGATIVE (Neg); OCCULT BLOOD,URINE NEGATIVE (Neg); PROTEIN,URINE TRACE mg/dl (Neg)
[2025-02-11 16:06] LABS: UA COLLECTION TYPE NON-SPECIFIED
[2025-02-11 16:08] LABS: BACTERIA,URINE 1+ /HPF (Neg); RBC,URINE 0-2 /HPF (0-2); WBC,URINE 0-4 /HPF (0-4)
[2025-02-11 16:09] LABS: SQUAMOUS EPITHELIAL CELL,UR FEW /LPF (FEW)
[2025-02-11 17:04] VITALS: TEMP 98.6
--- NOTE | 2025-02-11 17:09 | Physician Documentation ---
History of Present Illness ~ Chief Complaint: Urinary Symptoms Stated Complaint: UTI Time Seen by MD: 12:27 Primary Medical Doctor: Paddy Encinas [facility], Mode of Arrival: Ambulatory HPI 64-year-old female presenting for dysuria. She has been diagnosed with a urinary tract infection and has antibiotics ordered however she has not picked them up due to the cost of co-pay. She is also out of her [facility] Medication Reconciliation Allergies: Coded Allergies: vancomycin (Verified Allergy, Intermediate, 02/11/25) chlorpromazine (Verified Allergy, Mild, RASH, 02/11/25) Fish Containing Products (Verified Allergy, Unknown, 02/11/25) NSAIDS (Non-Steroidal Anti-Inflamma (Verified Allergy, Unknown, 02/11/25) aspirin (Verified Allergy, Unknown, SOB, 02/11/25) black pepper (Verified Allergy, Unknown, 02/11/25) iodine (Verified Allergy, Unknown, 10/11/23) Scheduled Apixaban (Eliquis), 5 MG PO BID Apixaban (Eliquis), 1 TAB PO Q12H Atorvastatin Calcium* (Lipitor*), 1 TAB PO DAILY, (Reported) Buspirone HCl (Buspirone HCl), 1 TAB PO BID, (Reported) Divalproex Sodium DR* (Maximino JEAN*), 1 TAB PO Q12H, (Reported) Divalproex Sodium DR* (Maximino JEAN*), 1 TAB PO Q12H Ferrous Sulfate (Ferosul), 325 MG PO BID, (Reported) Hydroxyzine Hcl* (Atarax*), 1 TAB PO QID, (Reported) Insulin Glargine,Hum.rec.anlog (Lantus), 25 UNITS SQ HS, (Reported) Insulin Lispro (Humalog), 5 UNITS SQ ACHS, (Reported) Lactobacillus Rhamnosus (Culturelle), 10,000 MMU PO DAILY Levetiracetam (Levetiracetam), 1 TAB PO BID, (Reported) Levetiracetam (Keppra), 1 TAB PO Q12H Metoprolol Succinate (Metoprolol Succinate), 12.5 MG PO DAILY Omeprazole (Prilosec), 1 CAP PO DAILY, (Reported) Prazosin HCl (Prazosin HCl), 1 CAP PO HS, (Reported) Quetiapine Fumarate (Seroquel Xr), 2 TAB PO HS, (Reported) Tiotropium Nelson (Spiriva), 1 CAP INH DAILY, (Reported) Tizanidine Hcl (Zanaflex), 1 TAB PO TID, (Reported) Venlafaxine Hcl (Effexor), 3 TAB PO DAILY, (Reported) Scheduled PRN Ipratropium/Albuterol Sulfate (Duoneb 2.5-0.5 Mg/3 Ml Soln), 1 VIAL NEB Q6H PRN for wheezing, (Reported) Past Medical History Past Medical History: Seizures, Atrial Fibrillation, Hypertension, Asthma, COPD, Hepatitis C, Pancreatitis, Diabetes, Chronic Pain, Extremity Fracture, Anxiety, Depression Past Surgical History: abdominal surgery, orthopedic surgeries Other Past Surgical History: Hepatic surgeries Patient History: FH: asthma FATHER, FH: breast cancer MOTHER, FH: diabetes mellitus GRANDFATHER OR GRANDMOTHER, Name: Grandmother, FH: heart disease FATHER, Other Past Family History: Cancer in mother Alcohol Use: None Drug Use: none, methamphetamine Lives with: Family Lives In: Home Occupation: disabled Past Social History: Quit smoking 17 years ago, quit methamphetamines 13 years Review of Systems All Other Systems at this time: Reviewed and Negative Constitutional: Denies: fever Physical Exam Vital Signs: Temperature: 98.6, Source: Oral, Heart Rate: 75, Respiratory Rate: 12, BP: 148/58, Pulse Oximetry: 94, Weight: 100.000 Oxygen Flow Rate: 4.0 Physical Exam Well-appearing no distress resting comfortably in bed No JVD Moist mucous membranes Pulmonary clear to auscultation bilaterally Cardiac no murmur Abdomen is soft nontender Lower extremity no edema Awake alert oriented Progress Progress Note Labs independently interpreted show normal WBC hemoglobin 11 0.7 from 12.3 in January. Creatinine 0.79 Results/Orders Reviewed/noted all lab results: Yes Results/Orders Completed Orders - SU NAVARRO MD Cbc/Diff (02/11/25 11:27) CMP (02/11/25 11:27) Levetiracetam Tablet (Keppra Tablet) (02/11/25 13:25) Ua W/Microscopic, Cult If Ind (02/11/25 15:55) Vital Signs 6/06/2802/11/25 02/11/25 02/11/25 11:19 12:41 14:46 16:47 Temp 97.3 Pulse 110 92 61 94 Resp 14 16 14 14 B/P (MAP) 110/82 119/64 (82) 136/60 (85) 136/60 (85) Pulse Ox 97 98 99 97 O2 Flow Rate 0 0 0 02/11/25 02/11/25 02/11/25 16:50 17:04 17:44 Temp 98.6 Pulse 75 98 Resp 12 15 B/P (MAP) 125/55 (78) 148/58 (88) 139/99 (112) Pulse Ox 94 100 O2 Flow Rate 4.0 0 Laboratory Tests Test 02/11/25 13:16 02/11/25 13:48 02/11/25 15:55 Glucometer 77 White Blood Count 5.9 Red Blood Count 3.73 L Hemoglobin 11.7 L Hematocrit 35.5 Mean Corpuscular Volume 95.4 Mean Corpuscular Hemoglobin 31.5 H Mean Corpuscular Hemoglobin Concent 33.0 Red Cell Distribution Width 15.4 H Platelet Count 329 Mean Platelet Volume 6.3 L Neutrophils (%) (Auto) 42.7 Lymphocytes (%) (Auto) 42.8 Monocytes (%) (Auto) 9.5 Eosinophils (%) (Auto) 4.6 Basophils (%) (Auto) 0.4 Neutrophils # (Auto) 2.5 Lymphocytes # (Auto) 2.5 Monocytes # (Auto) 0.6 Eosinophils # (Auto) 0.3 Basophils # (Auto) 0.0 CBC Comment Sodium Level 145 Potassium Level 3.8 Chloride Level 109 H Carbon Dioxide Level 26.9 Anion Gap 9 Blood Urea Nitrogen 17 Creatinine 0.79 Estimated GFR/1.73 m2 73 BUN/Creatinine Ratio 21.5 H Glucose Level 73 Calcium Level 9.4 Total Bilirubin 0.4 Aspartate Amino Transf (AST/SGOT) 16 Alanine Aminotransferase (ALT/SGPT) 11 L Alkaline Phosphatase 89 Total Protein 6.9 Albumin 3.1 L Globulin 3.8 Albumin/Globulin Ratio 0.8 L Chemistry Comments Urine Specimen Description Non-specified Urine Color Yellow Urine Clarity Clear Urine pH 6.0 Urine Specific [place] >=1.030 Urine Protein Trace Urine Glucose (UA) Negative Urine Ketones 15 H Urine Occult Blood Negative Urine Nitrite Negative Urine Bilirubin Small Urine Urobilinogen 2.0 H Urine Leukocyte Esterase Negative Urine RBC 0-2 Urine WBC 0-4 Urine Squamous Epithelial Cells Few Urine Bacteria 1+ Urine Culture Indicated Not ind Volume Urine Centrifuged 10 ml Urine Comment Medical Decision Making Additional info obtained from: old records Additional Comment UTI, electrolyte abnormality, seizure disorder Departure Disposition: HOME / SELF CARE / HOMELESS Impression: Primary Impression: Weakness Additional Instructions: Your blood work was all normal today as was your urinalysis. I have refilled your prescriptions for Eliquis Depakote and Keppra. The rest should be filled by your primary care physician. Please call them tomorrow to be seen as soon as possible for further evaluation and management Referrals: NO PRIMARY CARE PROVIDER (PCP) Prescriptions Apixaban (ELIQUIS) 5 Mg Tablet 1 TAB PO Q12H for 30 Days, #60 TAB 0 Refills Prov: SU NAVARRO MD 02/11/[address]* (Depakote DR*) 500 Mg Tablet.dr 1 TAB PO Q12H for 30 Days, #60 TAB Prov: SU NAVARRO MD 02/11/25 Levetiracetam (Keppra) 1,000 Mg Tablet 1 TAB PO Q12H for 30 Days, #60 TAB 0 Refills Prov: SU NAVARRO MD 02/11/25 Signature Scribe Signature: na Attestation: SU Sullivan MD Feb 11, 2025 17:09
[2025-02-11] MEDS ORDERED: APIX5TAB3 PO (17:18)
[2025-02-11] MEDS ORDERED: DIVA-76 PO (17:18)
[2025-02-11] MEDS ORDERED: LEVE10002 PO (17:18)
[2025-02-11 17:44] VITALS: BP 139/99; PULSE 98; RESP 15; O2SAT 100
== END 2025-02-11 17:45 | disposition home or self-care (01) ==
LOC: ER 11:03
DX: R53.1 Weakness (principal); R30.0 Dysuria; E11.9 Type 2 diabetes mellitus without complications; I10 Essential (primary) hypertension; I48.91 Unspecified atrial fibrillation; F41.9 Anxiety disorder, unspecified; F32.A Depression, unspecified; J44.9 Chronic obstructive pulmonary disease, unspecified; F15.90 Other stimulant use, unspecified, uncomplicated; Z87.891 Personal history of nicotine dependence; Z88.1 Allergy status to other antibiotic agents; Z88.6 Allergy status to analgesic agent; Z88.8 Allergy status to other drugs, medicaments and biological substances; Z91.041 Radiographic dye allergy status
CPT/HCPCS: 36415; 80053; 81001; 82948; 85025; 99285

== ENCOUNTER 2025-02-14 04:35 | Emergency (ER) | payer MEDICARE, MEDICAID ==
[~2025-02-14] VITALS: Ht 177.8 cm; Wt 98.3 kg
[~2025-02-14 04:35] MED LIST changes: +LEVE10002 PO
[2025-02-14 04:39] VITALS: O2SAT 91
--- NOTE | 2025-02-14 05:45 | Physician Documentation ---
History of Present Illness ~ Chief Complaint: Mechanical Fall Stated Complaint: FALL Time Seen by MD: 04:55 Primary Medical Doctor: Paddy Encinas [facility], MD Source: patient, EMS Mode of Arrival: EMS Exam Limitations: no limitations HPI Patient with a history of seizure disorder, AFib, hypertension, COPD, diabetes, hepatitis-C in via EMS following a mechanical fall. She reports that she tripped and fell and hit the wall. She landed on her right side. She does take Eliquis for her AFib. She is reporting pain predominantly on her left side. Denies any loss of consciousness. Has pain in her right shoulder and her right hip. She also reports pain in her left wrist. EMS reports a significant bedbug infestation at her house and no electricity. In reviewing her notes I can see that she was here on February 11. That note was reviewed by me. Reported that she has been diagnosed with a UTI but had not picked up her medications and also need other refills. Workup that day was unremarkable including a negative urine. Other medications were refilled for her. Tetanus within 5 Years?: Yes Medication Reconciliation Allergies: Coded Allergies: vancomycin (Verified Allergy, Intermediate, 02/14/25) chlorpromazine (Verified Allergy, Mild, RASH, 02/14/25) Fish Containing Products (Verified Allergy, Unknown, 02/14/25) NSAIDS (Non-Steroidal Anti-Inflamma (Verified Allergy, Unknown, 02/14/25) aspirin (Verified Allergy, Unknown, SOB, 02/14/25) black pepper (Verified Allergy, Unknown, 02/14/25) iodine (Verified Allergy, Unknown, 02/14/25) Scheduled Apixaban (Eliquis), 5 MG PO BID Apixaban (Eliquis), 1 TAB PO Q12H Atorvastatin Calcium* (Lipitor*), 1 TAB PO DAILY, (Reported) Buspirone HCl (Buspirone HCl), 1 TAB PO BID, (Reported) Divalproex Sodium * (Maximino JEAN*), 1 TAB PO Q12H, (Reported) Divalproex Sodium * (Maximino JEAN*), 1 TAB PO Q12H Ferrous Sulfate (Ferosul), 325 MG PO BID, (Reported) Hydroxyzine Hcl* (Atarax*), 1 TAB PO QID, (Reported) Insulin Glargine,Hum.rec.anlog (Lantus), 25 UNITS SQ HS, (Reported) Insulin Lispro (Humalog), 5 UNITS SQ ACHS, (Reported) Lactobacillus Rhamnosus (Culturelle), 10,000 MMU PO DAILY Levetiracetam (Levetiracetam), 1 TAB PO BID, (Reported) Levetiracetam (Keppra), 1 TAB PO Q12H Metoprolol Succinate (Metoprolol Succinate), 12.5 MG PO DAILY Omeprazole (Prilosec), 1 CAP PO DAILY, (Reported) Prazosin HCl (Prazosin HCl), 1 CAP PO HS, (Reported) Quetiapine Fumarate (Seroquel Xr), 2 TAB PO HS, (Reported) Tiotropium [place] (Spiriva), 1 CAP INH DAILY, (Reported) Tizanidine Hcl (Zanaflex), 1 TAB PO TID, (Reported) Venlafaxine Hcl (Effexor), 3 TAB PO DAILY, (Reported) Scheduled PRN Ipratropium/Albuterol Sulfate (Duoneb 2.5-0.5 Mg/3 Ml Soln), 1 VIAL NEB Q6H PRN for wheezing, (Reported) Past Medical History Past Medical History: Seizures, Atrial Fibrillation, Hypertension, Asthma, COPD, Hepatitis C, Pancreatitis, Diabetes, Chronic Pain, Extremity Fracture, Anxiety, Depression Past Surgical History: abdominal surgery, orthopedic surgeries Other Past Surgical History: Hepatic surgeries Patient History: FH: asthma FATHER, FH: breast cancer MOTHER, FH: diabetes mellitus GRANDFATHER OR GRANDMOTHER, Name: Grandmother, FH: heart disease FATHER, Other Past Family History: Cancer in mother Alcohol Use: None Drug Use: none, methamphetamine Lives with: Family Lives In: Home Occupation: disabled Past Social History: Quit smoking 17 years ago, quit methamphetamines 13 years Review of Systems All Other Systems at this time: Reviewed and Negative Physical Exam Vital Signs: Source: Oral, Heart Rate: 86, Respiratory Rate: 16, BP: 150/98, Pulse Oximetry: 91, Weight: 98.300 Oxygen Flow Rate: 0 Physical Exam General: Alert and oriented x4, well-appearing, well-nourished, no acute distress HEENT: Normocephalic, atraumatic, no visible or palpable masses or depression, extraocular movements intact, PERRLA, no scleral icterus, neck has C-collar in place, mucous membranes moist Heart: Regular rate and rhythm, no murmurs, rubs or gallops Lungs: Clear to auscultation bilaterally, normal work of breathing Abdomen: Soft, nontender, no palpable masses, normal bowel sounds Back: Spine is without deformity or tenderness, Extremities: Right arm: Decreased range of motion in the right shoulder secondary to pain, pain at the lateral right hip without obvious shortening or external rotation. Left wrist: tender along the dorsal aspect of the wrist with mild swelling medially, no pain in anatomical snuffbox Neurologic: Cranial nerves 2-12 are intact, Psychiatric: Alert and oriented x4, judgment and insight normal, normal mood and affect Skin: Good turgor, excoriation on lower extremities Progress Results/Orders Results/Orders Orders - CHAKA MORENO MD Shoulder, Complete (Min 2 Vws) (02/14/25 05:04) Hip Unilateral 2 Views (02/14/25 05:04) Wrist, Complete (3vw Min) (02/14/25 05:04) Ct Head (02/14/25 ) Ct Cervical Spine (02/14/25 05:08) Cbc/Diff (02/14/25 05:09) CMP (02/14/25 05:09) Urinalysis, Cult If Indicated (02/14/25 05:09) Straight Cath For Urine Sample (02/14/25 05:10) Vital Signs 02/14/25 04:39 Pulse 86 Resp 16 B/P (MAP) 150/98 Pulse Ox 91 O2 Flow Rate 0 Departure Impression: Primary Impression: Bedbug bite Qualified Codes: W57.XXXA - Bitten or stung by nonvenomous insect and other nonvenomous arthropods, initial encounter Additional Impression: Fall Qualified Codes: W19.XXXA - Unspecified fall, initial encounter Additional Impression Text Patient in with mechanical fall at home. She does have a foul odor to her urine so initiating a workup to make sure there is no other cause for the fall. Head and CT pending. Patient is on Eliquis. Ordered x-rays of the right shoulder, right hip and left wrist. Labs including CBC, chemistry and urinalysis are pending. Patient is hemodynamically stable. Handing over to Dr. Hadley in the ER. Condition: Stable Referrals: NO PRIMARY CARE PROVIDER (PCP) Signature Scribe Signature: No scribe Attestation: No scribe CHAKA MORENO MD Feb 14, 2025 05:45
[2025-02-14 06:16] LABS: BASOPHILS % (AUTO) 0.5 % (0-1); EOSINOPHILS # (AUTO) 0.2 X10'3 (0-0.9); EOSINOPHILS % (AUTO) 6.1 % (0-6); HEMATOCRIT 32.3 % (35.0-45.0); LYMPHOCYTES # (AUTO) 1.7 X10'3 (1.1-4.8); LYMPHOCYTES % (AUTO) 42.5 % (21-51); MEAN CORPUSCULAR HEMOGLOBIN 32.7 PG (27.0-31.0); MEAN CORPUSCULAR HGB CONC 34.1 g/dL (33.0-36.5); MONOCYTES # (AUTO) 0.3 X10'3 (0-0.9); MONOCYTES % (AUTO) 6.6 % (2-12); NEUTROPHILS # (AUTO) 1.8 X10'3 (1.8-7.7); NEUTROPHILS % (AUTO) 44.3 % (42-75); PLATELET COUNT 292 X10'3 (140-440); RED BLOOD COUNT 3.36 X10'6 (4.20-5.60); RED CELL DISTRIBUTION WIDTH 15.5 % (11.5-14.5); WHITE BLOOD COUNT 4.1 X10'3 (4.5-11.0)
--- NOTE | 2025-02-14 06:25 | RADIOLOGY REPORT ---
EXAM: CT CT HEAD INDICATION: fall, headache TECHNIQUE: CT of the head without intravenous contrast. Radiation Dose : 1. Head: CT Dose: CTDI volume is 71 mGy. Dose-length product is 1506 mGy*cm The dose indicators for CT are the volume Computed Tomography (CT) Dose Index (CTDIvol) and the Dose Length Product (DLP), and are measured in units of mGy and mGy-cm, respectively. These indicators are not patient dose, but values generated from the CT scanner acquisition factors. The report includes radiation exposure data for exposures received during this examination. COMPARISON: CT CT HEAD on DOS: 10/25/24, CT CT HEAD on DOS: 08/13/24, CT CT HEAD on DOS: 06/24/24, CT CT HEAD on DOS: 10/11/23 FINDINGS: There is no evidence of acute intracranial hemorrhage, extra-axial collection, mass effect, midline s hift, herniation or hydrocephalus. The ventricles, sulci and cisterns are age appropriate. The dai-white differentiation is intact. The visualized paranasal sinuses and mastoid air cells are clear. The surrounding soft tissues and osseous structures are unremarkable. IMPRESSION: No acute intracranial abnormality. Radiation optimization: All CT scans at this facility use at least one of these dose optimization anuja hniques: automated exposure control mA and/or kV adjustment per patient size (includes targeted exam s where dose is matched to clinical indication) or iterative reconstruction.
[2025-02-14 06:27] LABS: ALANINE AMINOTRANSFERASE 20 U/L (12-78); ALBUMIN 2.8 G/DL (3.4-5.0); ALBUMIN/GLOBULIN RATIO 0.8 (1.1-1.5); ALKALINE PHOSPHATASE 85 IU/L (46-116); ANION GAP 7 (8-16); ASPARTATE AMINO TRANSFERASE 20 U/L (10-37); BILIRUBIN,TOTAL 0.3 MG/DL (0.1-1.0); BLOOD UREA NITROGEN 21 MG/DL (7-18); BUN/CREATININE RATIO 21.9 (10.0-20.0); CALCIUM 8.6 MG/DL (8.5-10.1); CHLORIDE 109 MMOL/L (99-107); CREATININE 0.96 MG/DL (0.40-0.90); GLUCOSE 121 MG/DL (70-104); POTASSIUM 3.8 MMOL/L (3.5-5.1); SODIUM 145 MMOL/L (135-145); TOTAL CARBON DIOXIDE 29.3 MMOL/L (24-32); TOTAL PROTEIN 6.3 G/DL (6.4-8.2); eCRCL 62 ML/MIN; eGFR 58 ML/MIN
[2025-02-14 06:31] VITALS: BP 110/60; PULSE 76; RESP 14
--- NOTE | 2025-02-14 06:38 | RADIOLOGY REPORT ---
EXAM: CT CT CERVICAL SPINE INDICATION: fall EXAM DATE: 02/14/2025 06:05 AM COMPARISON: CT CT CERVICAL SPINE on DOS: 10/11/23 TECHNIQUE: Multiple axial CT images of the cervical spine were obtained using bone algorithm. Axial a nd coronal reformatting was done. Bone and soft tissue windows were reviewed. Radiation Dose Information: CT Dose: CTDI volume is 55.4 mGy. Dose-length product is 1000.66 mGy*cm FINDINGS: The cervical alignment is intact. Curvature is maintained. No acute cervical spine fracture is identi fied. The vertebral body heights are intact. No suspicious osseous lesions are identified. Multilevel degenerative changes. No significant spinal stenosis. Multilevel neural foraminal stenosi s. There is no prevertebral soft tissue swelling. Lung apices are clear. IMPRESSION: 1. No evidence of acute cervical spine fracture or traumatic malalignment. All CT scans at this medical facility are performed using dose modulation techniques as appropriate t o a performed exam including the following: Automated exposure control was utilized; adjustment of th e MA and/or KV according to patient size; and use of iterative reconstruction technique.
--- NOTE | 2025-02-14 06:50 | RADIOLOGY REPORT ---
EXAM: XR Left Wrist Complete, 3 or More Views CLINICAL INDICATION: Pain TECHNIQUE: Frontal, lateral and oblique views of the left wrist. COMPARISON: No relevant prior studies available. FINDINGS: BONES/JOINTS: See below. SOFT TISSUES: Soft tissue swelling without acute fracture. No radiopaque foreign body. IMPRESSION: 1. Soft tissue swelling without acute fracture. 2. If symptoms persist, further evaluation with CT is recommended.
--- NOTE | 2025-02-14 06:56 | RADIOLOGY REPORT ---
EXAM: XR Right Hip With Pelvis When Performed, 2 or 3 Views CLINICAL INDICATION: Pain TECHNIQUE: Two or three views of the right hip with pelvis when performed. COMPARISON: No relevant prior studies available. FINDINGS: BONES/JOINTS: Moderate degenerative change of the right hip joint. Well-corticated bony fragment of the greater trochanter, likely from prior injury. No acute fracture. No dislocation. SOFT TISSUES: Soft tissue swelling. IMPRESSION: Degenerative changes as above.
--- NOTE | 2025-02-14 06:57 | RADIOLOGY REPORT ---
EXAM: XR Right Shoulder Complete, 2 or More Views CLINICAL INDICATION: Pain TECHNIQUE: Two or more views of the right shoulder. COMPARISON: No relevant prior studies available. FINDINGS: BONES/JOINTS: Unremarkable. No acute fracture. No dislocation. SOFT TISSUES: Unremarkable. IMPRESSION: No acute fracture.
[2025-02-14 07:36] LABS: BILIRUBIN,URINE NEGATIVE (Neg); CLARITY,URINE CLEAR (Clear); COLOR,URINE YELLOW (Yellow); GLUCOSE, URINE NEGATIVE (Neg); KETONES,URINE NEGATIVE (Neg); LEUKOCYTE ESTERASE ,URINE NEGATIVE (Neg); NITRITES, URINE NEGATIVE (Neg); OCCULT BLOOD,URINE NEGATIVE (Neg); PROTEIN,URINE NEGATIVE (Neg)
[2025-02-14 07:37] LABS: UA COLLECTION TYPE OTHER
--- NOTE | 2025-02-14 08:17 | RADIOLOGY REPORT ---
CLINICAL INFORMATION: Right elbow pain after a fall injury. TECHNIQUE: 3 views of the right elbow were obtained. COMPARISON: DI WRIST, COMPLETE (3VW MIN) on DOS: 02/14/25 FINDINGS: Small 1.5 mm ossific density adjacent the lateral/radial aspect of the radial head, possibl e small avulsion fragment in the appropriate clinical setting, of uncertain chronicity. Chronic avul enid fragment adjacent to the lateral epicondyle measuring up to 3.5 mm. [id number] arthritic c hanges are seen of the ulnotrochlear joint. Limited evaluation for joint effusion due to positioning on the lateral view. Mild diffuse soft tissue swelling. IMPRESSION: 1. Chronic appearing avulsion fragment adjacent to the lateral epicondyle avulsion fragment adjacent to the radial head of uncertain chronicity, possibly chronic. Correlate with clinical findings. 2. Otherwise, no evidence of acute fracture. 3. Limited evaluation for joint effusion due to positioning on the lateral view.
[2025-02-14] MEDS ORDERED: PERM60CR27 TOP (08:52)
--- NOTE | 2025-02-14 10:12 | ELECTROCARDIOGRAPH REPORT ---
[facility] Test Date: 2025-02-14 Test Time: 04:51:04 Pat Name: JABARI PEÑA Department: EMERGENCY ROOM Room: Gender: F Tools Administrator: ALE : 1960 Requested By: DEPARTMENT EMERGENCY Order Number: [id number] Reading MD: Measurements Intervals [place] Rate: 81 P: 58 [place]: 154 QRS: 24 QRSD: 105 T: 14 QT: 400 QTc: 465 Interpretive Statements Sinus rhythm Low voltage, precordial leads Abnormal R-wave progression, early transition Please click the below link to view image of tracing.
== END 2025-02-14 11:40 | disposition home or self-care (01) ==
LOC: ER 04:35
DX: S41.051A Open bite of right shoulder, initial encounter (principal); S71.051A Open bite, right hip, initial encounter; S61.552A Open bite of left wrist, initial encounter; E11.9 Type 2 diabetes mellitus without complications; G40.909 Epilepsy, unspecified, not intractable, without status epilepticus; I10 Essential (primary) hypertension; I48.91 Unspecified atrial fibrillation; J44.9 Chronic obstructive pulmonary disease, unspecified; Z87.891 Personal history of nicotine dependence; Z88.1 Allergy status to other antibiotic agents; Z88.6 Allergy status to analgesic agent; Z88.8 Allergy status to other drugs, medicaments and biological substances; Z91.041 Radiographic dye allergy status; W01.0XXA Fall on same level from slipping, tripping and stumbling without subsequent striking against object, initial encounter; Y93.89 Activity, other specified; Y92.009 Unspecified place in unspecified non-institutional (private) residence as the place of occurrence of the external cause; Y99.8 Other external cause status
CPT/HCPCS: 36415; 70450; 72125; 73030; 73080; 73110; 73502; 80053; 81003; 85025; 93005; 99285; A4353; C1758

== ENCOUNTER 2025-02-19 13:28 | Emergency (ER) | payer MEDICARE, MEDICAID ==
[~2025-02-19] VITALS: Ht 172.7 cm; Wt 82.7 kg
[~2025-02-19 13:28] MED LIST changes: +PERM60CR27 TOP
[2025-02-19 13:36] VITALS: TEMP 97.2
--- NOTE | 2025-02-19 15:38 | Physician Documentation ---
History of Present Illness ~ Chief Complaint: See Chief Complaint Stated Complaint: LETHARGIC Time Seen by MD: 14:20 Primary Medical Doctor: Paddy Encinas [facility], ER Mode of Arrival: EMS HPI . This 64-year-old female patient presents via EMS from home due to cervical complaints secondary to a previous fall last Monday. She was evaluated here and at [facility] ED for the same incident. Does state that she has a bruise is healing on her forehead. She complains of right-sided hip and left hand and rib pain follow up which have been imaged Tetanus within 5 Years?: No Medication Reconciliation Allergies: Coded Allergies: vancomycin (Verified Allergy, Intermediate, 02/19/25) chlorpromazine (Verified Allergy, Mild, RASH, 02/19/25) Fish Containing Products (Verified Allergy, Unknown, 02/19/25) NSAIDS (Non-Steroidal Anti-Inflamma (Verified Allergy, Unknown, 02/19/25) aspirin (Verified Allergy, Unknown, SOB, 02/19/25) black pepper (Verified Allergy, Unknown, 02/19/25) iodine (Verified Allergy, Unknown, 02/19/25) Scheduled Apixaban (Eliquis), 5 MG PO BID Apixaban (Eliquis), 1 TAB PO Q12H Atorvastatin Calcium* (Lipitor*), 1 TAB PO DAILY, (Reported) Buspirone HCl (Buspirone HCl), 1 TAB PO BID, (Reported) Divalproex Sodium DR* (Maximino JEAN*), 1 TAB PO Q12H, (Reported) Divalproex Sodium * (Maximino JEAN*), 1 TAB PO Q12H Ferrous Sulfate (Ferosul), 325 MG PO BID, (Reported) Hydroxyzine Hcl* (Atarax*), 1 TAB PO QID, (Reported) Insulin Glargine,Hum.rec.anlog (Lantus), 25 UNITS SQ HS, (Reported) Insulin Lispro (Humalog), 5 UNITS SQ ACHS, (Reported) Lactobacillus Rhamnosus (Culturelle), 10,000 MMU PO DAILY Levetiracetam (Levetiracetam), 1 TAB PO BID, (Reported) Levetiracetam (Keppra), 1 TAB PO Q12H Metoprolol Succinate (Metoprolol Succinate), 12.5 MG PO DAILY Omeprazole (Prilosec), 1 CAP PO DAILY, (Reported) Permethrin 5% Cream* (Elimite 5% Cream*), 1 APPLIC TOP ONCE Prazosin HCl (Prazosin HCl), 1 CAP PO HS, (Reported) Quetiapine Fumarate (Seroquel Xr), 2 TAB PO HS, (Reported) Tiotropium [place] (Spiriva), 1 CAP INH DAILY, (Reported) Tizanidine Hcl (Zanaflex), 1 TAB PO TID, (Reported) Venlafaxine Hcl (Effexor), 3 TAB PO DAILY, (Reported) Scheduled PRN Ipratropium/Albuterol Sulfate (Duoneb 2.5-0.5 Mg/3 Ml Soln), 1 VIAL NEB Q6H PRN for wheezing, (Reported) Past Medical History Past Medical History: Seizures, Atrial Fibrillation, Hypertension, Asthma, COPD, Hepatitis C, Pancreatitis, Diabetes, Chronic Pain, Extremity Fracture, Anxiety, Depression Past Surgical History: abdominal surgery, orthopedic surgeries Other Past Surgical History: Hepatic surgeries Patient History: FH: asthma FATHER, FH: breast cancer MOTHER, FH: diabetes mellitus GRANDFATHER OR GRANDMOTHER, Name: Grandmother, FH: heart disease FATHER, Other Past Family History: Cancer in mother Alcohol Use: None Drug Use: none, methamphetamine Lives with: Family Lives In: Home Occupation: disabled Past Social History: Quit smoking 17 years ago, quit methamphetamines 13 years Physical Exam Vital Signs: Temperature: 97.2, Source: Oral, Heart Rate: 71, Respiratory Rate: 16, BP: 97/46, Pulse Oximetry: 99, Weight: 82.730 Oxygen Flow Rate: 0 Progress Results/Orders Results/Orders Orders - LOGAN SANFORD [employer] Culture Blood (02/19/25 14:57) Urinalysis, Cult If Indicated (02/19/25 14:57) Monitor (02/19/25 14:57) Saline Lock (02/19/25 14:57) Completed Orders - LOGAN SANFORD [employer] Cbc/Diff (02/19/25 14:57) Hs Troponin I W Calculations (02/19/25 15:22) Vital Signs 02/19/25 02/19/25 02/19/25 13:36 15:07 16:28 Temp 97.2 Pulse 80 71 80 Resp 16 16 16 B/P (MAP) 108/51 97/46 (63) 101/60 Pulse Ox 95 99 98 O2 Flow Rate 0 0 Laboratory Tests Test 02/19/25 15:22 White Blood Count 5.1 Red Blood Count 3.50 L Hemoglobin 11.5 L Hematocrit 34.1 L Mean Corpuscular Volume 97.2 Mean Corpuscular Hemoglobin 32.7 H Mean Corpuscular Hemoglobin Concent 33.7 Red Cell Distribution Width 15.8 H Platelet Count 268 Mean Platelet Volume 6.5 L Neutrophils (%) (Auto) 58.3 Lymphocytes (%) (Auto) 32.7 Monocytes (%) (Auto) 5.3 Eosinophils (%) (Auto) 3.3 Basophils (%) (Auto) 0.4 Neutrophils # (Auto) 3.0 Lymphocytes # (Auto) 1.7 Monocytes # (Auto) 0.3 Eosinophils # (Auto) 0.2 Basophils # (Auto) 0.0 CBC Comment Troponin I High Sensitivity 5 Chemistry Comments Microbiology Date/Time Source Procedure Growth Status 02/19/25 15:43 Blood Arm Right Blood Culture - Preliminary NEGATIVE (LESS THAN 24 HOURS) Resulted Medical Decision Making Findings Patient has been fully evaluated for all of her complaints at this hospital and reportedly at the other local hospital. I do not see any reason to pursue pursue further evaluation as she has received appropriate treatment at this time. I discussed this with the patient and within minutes she was up walking around without difficulty requesting to be discharged. Differential Dx:Considerations: Include: Closed head injury, Cardiac injury, Fracture(s), Intraabdominal injury, Pneumothorax, Cerebral contusion, Pulmonary contusion, Spine injury, Tracheal injury, Urological injury, Vascular injury, Abrasion(s), Contusion(s), Foreign body(s), Hematoma(s), Laceration(s), Encephalopathy, Other Departure Disposition: 01 HOME / SELF CARE / HOMELESS Impression: Primary Impression: Fall Condition: Stable Discharge Instructions: Fall Prevention in the Home, Adult Referrals: NO PRIMARY CARE PROVIDER (PCP) Signature Scribe Signature: x Attestation: Scribed for Logan Sanford [employer] by Logan Baxter NP . 02/19/25 18:35 LOGAN SANFORD NP Feb 19, 2025 15:38
[2025-02-19 15:41] LABS: BASOPHILS % (AUTO) 0.4 % (0-1); EOSINOPHILS # (AUTO) 0.2 X10'3 (0-0.9); EOSINOPHILS % (AUTO) 3.3 % (0-6); HEMATOCRIT 34.1 % (35.0-45.0); HEMOGLOBIN 11.5 g/dl (12.0-16.0); LYMPHOCYTES # (AUTO) 1.7 X10'3 (1.1-4.8); LYMPHOCYTES % (AUTO) 32.7 % (21-51); MEAN CORPUSCULAR HEMOGLOBIN 32.7 PG (27.0-31.0); MEAN CORPUSCULAR HGB CONC 33.7 g/dL (33.0-36.5); MEAN CORPUSCULAR VOLUME 97.2 FL (78-98); MEAN PLATELET VOLUME 6.5 FL (7.4-10.4); MONOCYTES # (AUTO) 0.3 X10'3 (0-0.9); MONOCYTES % (AUTO) 5.3 % (2-12); NEUTROPHILS % (AUTO) 58.3 % (42-75); PLATELET COUNT 268 X10'3 (140-440); RED CELL DISTRIBUTION WIDTH 15.8 % (11.5-14.5); WHITE BLOOD COUNT 5.1 X10'3 (4.5-11.0)
[2025-02-19 16:28] VITALS: BP 101/60; PULSE 80; RESP 16; O2SAT 98
== END 2025-02-19 16:30 | disposition home or self-care (01) ==
LOC: ER 13:29
DX: S00.83XA Contusion of other part of head, initial encounter (principal); M25.561 Pain in right knee; M79.642 Pain in left hand; R07.81 Pleurodynia; E11.9 Type 2 diabetes mellitus without complications; I10 Essential (primary) hypertension; I48.91 Unspecified atrial fibrillation; J44.9 Chronic obstructive pulmonary disease, unspecified; F41.9 Anxiety disorder, unspecified; F32.A Depression, unspecified; F15.90 Other stimulant use, unspecified, uncomplicated; Z87.891 Personal history of nicotine dependence; Z88.1 Allergy status to other antibiotic agents; Z88.6 Allergy status to analgesic agent; Z88.8 Allergy status to other drugs, medicaments and biological substances; W19.XXXA Unspecified fall, initial encounter; Y93.89 Activity, other specified; Y92.89 Other specified places as the place of occurrence of the external cause; Y99.8 Other external cause status
CPT/HCPCS: 36415; 84484; 85025; 87040; 99284; J7030

== ENCOUNTER 2025-02-27 12:21 | Emergency (ER) | payer MEDICARE, MEDICAID ==
[~2025-02-27] VITALS: Ht 172.7 cm; Wt 57.7 kg
[2025-02-27] MEDS ORDERED: proparacaine 0.5% ophthalmic drops 15ml EACHEYE ONE (13:05)
[2025-02-27] MEDS ORDERED: fluorescein sod 1mg ophthalmic strip LEFTEYE ONE (13:05)
[2025-02-27] MEDS ORDERED: fluorescein sod 1mg ophthalmic strip RIGHTEYE ONE (13:05)
[2025-02-27 13:45] VITALS: BP 173/109; PULSE 99; O2SAT 100
--- NOTE | 2025-02-27 14:11 | Physician Documentation ---
History of Present Illness ~ Chief Complaint: Eye Discharge Stated Complaint: EYE REDNESS Time Seen by MD: 12:31 OK to notify your PCP?: Yes Primary Medical Doctor: SCOTTIE Crespo, ER Mode of Arrival: EMS HPI 64-year-old female patient with the psychiatric and behavioral disorder was brought to the emergency room by ambulance because of eye irritation bilaterally for 1 to 2 days. She was at the [facility] and discharged two days ago (admitted for behavioral psychiatric issues). Her eyes a little scratchy but her vision is about the same. She does not endorse any other complaints. No eye pain. Medication Reconciliation Allergies: Coded Allergies: vancomycin (Verified Allergy, Intermediate, 02/27/25) chlorpromazine (Verified Allergy, Mild, RASH, 02/27/25) Fish Containing Products (Verified Allergy, Unknown, 02/27/25) NSAIDS (Non-Steroidal Anti-Inflamma (Verified Allergy, Unknown, 02/27/25) aspirin (Verified Allergy, Unknown, SOB, 02/27/25) black pepper (Verified Allergy, Unknown, 02/27/25) iodine (Verified Allergy, Unknown, 02/19/25) Scheduled Apixaban (Eliquis), 5 MG PO BID Apixaban (Eliquis), 1 TAB PO Q12H Atorvastatin Calcium* (Lipitor*), 1 TAB PO DAILY, (Reported) Buspirone HCl (Buspirone HCl), 1 TAB PO BID, (Reported) Divalproex Sodium DR* (Maximino DR*), 1 TAB PO Q12H, (Reported) Divalproex Sodium DR* (Maximino DR*), 1 TAB PO Q12H Ferrous Sulfate (Ferosul), 325 MG PO BID, (Reported) Hydroxyzine Hcl* (Atarax*), 1 TAB PO QID, (Reported) Insulin Glargine,Hum.rec.anlog (Lantus), 25 UNITS SQ HS, (Reported) Insulin Lispro (Humalog), 5 UNITS SQ ACHS, (Reported) Lactobacillus Rhamnosus (Culturelle), 10,000 MMU PO DAILY Levetiracetam (Levetiracetam), 1 TAB PO BID, (Reported) Levetiracetam (Keppra), 1 TAB PO Q12H Metoprolol Succinate (Metoprolol Succinate), 12.5 MG PO DAILY Naphazoline HCl/Phenir Mal (Naphcon-A Eye Drops), 1 DROP LEFTEYE Q6H Naphazoline HCl/Phenir Mal (Naphcon-A Eye Drops), 1 DROP RIGHTEYE Q6H Omeprazole (Prilosec), 1 CAP PO DAILY, (Reported) Permethrin 5% Cream* (Elimite 5% Cream*), 1 APPLIC TOP ONCE Prazosin HCl (Prazosin HCl), 1 CAP PO HS, (Reported) Quetiapine Fumarate (Seroquel Xr), 2 TAB PO HS, (Reported) Tiotropium [place] (Spiriva), 1 CAP INH DAILY, (Reported) Tizanidine Hcl (Zanaflex), 1 TAB PO TID, (Reported) Venlafaxine Hcl (Effexor), 3 TAB PO DAILY, (Reported) Scheduled PRN Ipratropium/Albuterol Sulfate (Duoneb 2.5-0.5 Mg/3 Ml Soln), 1 VIAL NEB Q6H PRN for wheezing, (Reported) Past Medical History Past Medical History: Seizures, Atrial Fibrillation, Hypertension, Asthma, COPD, Hepatitis C, Pancreatitis, Diabetes, Chronic Pain, Extremity Fracture, Anxiety, Depression Past Surgical History: abdominal surgery, orthopedic surgeries Other Past Surgical History: Hepatic surgeries Patient History: FH: asthma FATHER, FH: breast cancer MOTHER, FH: diabetes mellitus GRANDFATHER OR GRANDMOTHER, Name: Grandmother, FH: heart disease FATHER, Other Past Family History: Cancer in mother Alcohol Use: None Drug Use: none, methamphetamine Lives with: Family Lives In: Home Occupation: disabled Past Social History: Quit smoking 17 years ago, quit methamphetamines 13 years Review of Systems ROS As stated above in the HPI, otherwise all systems are reviewed and negative. Physical Exam Vital Signs: Temperature: 98.4, Source: Oral, Heart Rate: 99, Respiratory Rate: 18, BP: 173/109, Pulse Oximetry: 100, Weight: 57.730 Oxygen Flow Rate: 0 Physical Exam Reviewed vital signs and they are well within normal range except slightly elevated blood pressure. Const: Not in acute cardiopulmonary distress Head: Atraumatic Eyes: Normal Conjunctiva, LALI EOMI and no pallor no jaundice Fluorescein staining of both eyes that is no corneal abrasion. ENT: Normal External Ears, Nose and Mouth. Moist mucous membranes Neck: Full range of motion. No meningismus Resp: Clear to auscultation bilaterally. Normal work of breathing Cardio: Regular rate and rhythm, no murmurs. Skin well perfused Abd: Soft, non-tender, non-distended. Normal bowel sounds. No rebound or guardi ng Skin: No petechiae or rashes. Warm and dry Back: No midline or flank tenderness Ext: No cyanosis, or edema Neuro: Awake and alert Psych: Normal Mood and Affect Progress Results/Orders Results/Orders Completed Orders - YOSHI IRBY MD Fluorescein 1mg Ophthal Strip (Ful-Ara O (02/27/25 13:05) Fluorescein 1mg Ophthal Strip (Ful-Ara O (02/27/25 13:05) Proparacaine Ophth Solution (Alcaine Oph (02/27/25 13:05) Vital Signs 02/27/25 02/27/25 02/27/25 02/27/25 12:25 12:46 13:45 20:33 Temp 98.4 98.4 Pulse 107 99 Resp 18 18 18 14 B/P (MAP) 140/70 173/109 (130) Pulse Ox 99 100 O2 Flow Rate 0 0 Medical Decision Making Findings During the physical examination, the findings suggestive of acute life- threatening condition such as JVD, tracheal deviation, acidotic breathing, noisy stridorous breath sounds, pulses paradoxus, muffled heart sounds, unequal breath sounds, abdominal rigidity and rebound tenderness, focal neurological deficits, cool clammy skin, severe hypotension, severe tachycardia or bradycardia are absent. In terms of her ophthalmological examination with a limited capacity, I do not see any acute condition. She does not have any eye pain. Her vision is not diminished. I will provide her with anti allergy eyedrops and artificial tear and she needs to see radiology administrator or lime trimmer symone. DISCLAIMER Inadvertent spelling and grammatical errors,inadvertent sql consultant errors,syntax errors, grammatical errors, and spelling errors are likely due to EMR/dictation software use and do not reflect on the overall quality of patient care. Note that the electronic time recorded on this note does not necessarily reflect the actual time of the patient encounter. Departure Disposition: HOME / SELF CARE / HOMELESS Impression: Primary Impression: Irritation of both eyes Condition: Stable Discharge Instructions: Allergic Conjunctivitis, Adult, [id number] Additional Instructions: Thank you for coming to our Emergency Department today. Please see your lime trimmer or radiology administrator as soon as possible. Please ask your nurse or provider if you have questions about your care today and do not leave until all your questions have been answered. Please use any medications given as directed and follow-up with your doctor (or the doctor you were referred to) in the next 1-3 days. Your primary care doctor can help to coordinate outpatient specialty care and provide authorization for specialty referral as needed. If you do not have a primary care doctor you may follow up at a [facility]. You may also use motrin and tylenol as needed for fever and/or pain unless instructed otherwise by your provider or nurse. Indications for more urgent follow-up have been discussed, but you may return to the Emergency Department at ANY time for any worrisome or worsening symptoms. Referrals: NO PRIMARY CARE PROVIDER (PCP) Prescriptions Naphazoline HCl/Phenir Mal (Naphcon-A Eye Drops) 0.025 %-0.3 % Drops 1 DROP RIGHTEYE Q6H for 7 Days, #15 ML 0 Refills Prov: YOSHI IRBY MD 02/27/25 Naphazoline HCl/Phenir Mal (Naphcon-A Eye Drops) 0.025 %-0.3 % Drops 1 DROP LEFTEYE Q6H for 7 Days, #15 ML 0 Refills Prov: YOSHI IRBY MD 02/27/25 Signature Scribe Signature: x Attestation: Is my dictation YOSHI IRBY MD Feb 27, 2025 14:11
[2025-02-27] MEDS ORDERED: NAPAOS RIGHTEYE (14:14)
[2025-02-27] MEDS ORDERED: NAPAOS LEFTEYE (14:14)
[2025-02-27 20:33] VITALS: RESP 14; TEMP 98.4
== END 2025-02-27 20:35 | disposition home or self-care (01) ==
LOC: ER 12:22
DX: H57.89 Other specified disorders of eye and adnexa (principal); E11.9 Type 2 diabetes mellitus without complications; I10 Essential (primary) hypertension; I48.91 Unspecified atrial fibrillation; J44.9 Chronic obstructive pulmonary disease, unspecified; F41.9 Anxiety disorder, unspecified; F32.A Depression, unspecified; F15.90 Other stimulant use, unspecified, uncomplicated; Z88.1 Allergy status to other antibiotic agents; Z88.6 Allergy status to analgesic agent; Z88.8 Allergy status to other drugs, medicaments and biological substances; Z79.899 Other long term (current) drug therapy; Z79.4 Long term (current) use of insulin
CPT/HCPCS: 99284

== ENCOUNTER 2025-03-06 16:15 | Emergency (ER) | payer MEDICARE, MEDICAID ==
[~2025-03-06] VITALS: Ht 172.7 cm; Wt 127.7 kg
[~2025-03-06 16:15] MED LIST changes: +NAPAOS LEFTEYE; +NAPAOS RIGHTEYE
[2025-03-06 16:20] VITALS: TEMP 98.3
[2025-03-06] MEDS: levetiracetam-NACL1000mg/100ml 100 ML IV STA (16:58)
[2025-03-06] MEDS: divalproex sod 250mg ER (24-hour) tablet PO STA (16:58)
[2025-03-06 17:03] LABS: MEAN PLATELET VOLUME 6.7 FL (7.4-10.4); RED CELL DISTRIBUTION WIDTH 15.9 % (11.5-14.5)
[2025-03-06 17:16] LABS: CREATININE 0.97 MG/DL (0.40-0.90); TOTAL CARBON DIOXIDE 24.3 MMOL/L (24-32); eCRCL 58 ML/MIN; eGFR 57 ML/MIN
--- NOTE | 2025-03-06 17:53 | Physician Documentation ---
History of Present Illness ~ Chief Complaint: Seizure Stated Complaint: POST SEIZURE Time Seen by MD: 16:26 Primary Medical Doctor: SCOTTIE Crespo, Source: patient, EMS, EMS notes reviewed Mode of Arrival: EMS, Stretcher Exam Limitations: no limitations HPI Chief Complaint: Seizure Caveat: None Independent Historians: Paramedics History of Present Illness: Patient is a 64-year-old woman with a known seizure disorder. Patient is on Keppra and Depakote however she has not been able to receive her medications for some reason they have shipped elsewhere did not arrived to her home. Patient is brought in by paramedics from home after having several seizures. Patient's frequency of seizures varies. Sometimes she has them daily, other times monthly and then other times further apart. Patient states that she has absent seizures" but then she has generalized tonic-clonic seizure at times. She does have an altered mental status during the seizures but she is aware that she is also having generalized tonic-clonic activity. Patient bit her lip. States that she had three generalized tonic-clonic seizures over the course of 30 minutes. The longest lasting 5 minutes. Patient's mental status is back to baseline. Patient has a headache, dizziness/vertigo and some low back pain. Patient states that these symptoms are typical after having a seizure. Patient did not have a fall or trauma. Review of systems: All systems were reviewed and are negative except for what is indicated in the history of present illness. Past Medical History: Seizure disorder, type 2 diabetes, hepatitis-C, HTN, depression, anxiety, pancreatitis, COPD Past Surgical History: Noncontributory Social History: No tobacco use, no alcohol use, no drug use Medications: Reviewed as documented Nursing Notes Allergies: Reviewed as documented in Nursing Notes Medication Reconciliation Allergies: Coded Allergies: vancomycin (Verified Allergy, Intermediate, 03/06/25) chlorpromazine (Verified Allergy, Mild, RASH, 03/06/25) Fish Containing Products (Verified Allergy, Unknown, 03/06/25) NSAIDS (Non-Steroidal Anti-Inflamma (Verified Allergy, Unknown, 03/06/25) aspirin (Verified Allergy, Unknown, SOB, 03/06/25) black pepper (Verified Allergy, Unknown, 03/06/25) iodine (Verified Allergy, Unknown, 02/19/25) Scheduled Apixaban (Eliquis), 5 MG PO BID Apixaban (Eliquis), 1 TAB PO Q12H Atorvastatin Calcium* (Lipitor*), 1 TAB PO DAILY, (Reported) Buspirone HCl (Buspirone HCl), 1 TAB PO BID, (Reported) Divalproex ER* (Depakote ER*), 1 TAB PO DAILY Divalproex Sodium (Depakote Er), 1 TAB PO Q12H Divalproex Sodium DR* (Depakote DR*), 1 TAB PO Q12H, (Reported) Divalproex Sodium DR* (Depakote DR*), 1 TAB PO Q12H Ferrous Sulfate (Ferosul), 325 MG PO BID, (Reported) Hydroxyzine Hcl* (Atarax*), 1 TAB PO QID, (Reported) Insulin Glargine,Hum.rec.anlog (Lantus), 25 UNITS SQ HS, (Reported) Insulin Lispro (Humalog), 5 UNITS SQ ACHS, (Reported) Lactobacillus Rhamnosus (Culturelle), 10,000 MMU PO DAILY Levetiracetam (Levetiracetam), 1 TAB PO BID, (Reported) Levetiracetam (Keppra), 1 TAB PO Q12H Levetiracetam (Keppra), 1 TAB PO Q12H Levetiracetam (Keppra), 1 TAB PO Q12H Metoprolol Succinate (Metoprolol Succinate), 12.5 MG PO DAILY Naphazoline HCl/Phenir Mal (Naphcon-A Eye Drops), 1 DROP LEFTEYE Q6H Naphazoline HCl/Phenir Mal (Naphcon-A Eye Drops), 1 DROP RIGHTEYE Q6H Omeprazole (Prilosec), 1 CAP PO DAILY, (Reported) Permethrin 5% Cream* (Elimite 5% Cream*), 1 APPLIC TOP ONCE Prazosin HCl (Prazosin HCl), 1 CAP PO HS, (Reported) Quetiapine Fumarate (Seroquel Xr), 2 TAB PO HS, (Reported) Tiotropium [place] (Spiriva), 1 CAP INH DAILY, (Reported) Tizanidine Hcl (Zanaflex), 1 TAB PO TID, (Reported) Venlafaxine Hcl (Effexor), 3 TAB PO DAILY, (Reported) Scheduled PRN Ipratropium/Albuterol Sulfate (Duoneb 2.5-0.5 Mg/3 Ml Soln), 1 VIAL NEB Q6H PRN for wheezing, (Reported) Past Medical History Past Medical History: Seizures, Atrial Fibrillation, Hypertension, Asthma, COPD, Hepatitis C, Pancreatitis, Diabetes, Chronic Pain, Extremity Fracture, Anxiety, Depression Past Surgical History: abdominal surgery, orthopedic surgeries Other Past Surgical History: Hepatic surgeries Patient History: FH: asthma FATHER, FH: breast cancer MOTHER, FH: diabetes mellitus GRANDFATHER OR GRANDMOTHER, Name: Grandmother, FH: heart disease FATHER, Other Past Family History: Cancer in mother Alcohol Use: None Drug Use: none, methamphetamine Lives with: Family Lives In: Home Occupation: disabled Past Social History: Quit smoking 17 years ago, quit methamphetamines 13 years Review of Systems All Other Systems at this time: Reviewed and Negative ROS Patient denies any other acute symptoms other than above. All other systems are negative Physical Exam Vital Signs: RN Vital Signs have been reviewed: Yes, Temperature: 98.3, Source: Oral, Heart Rate: 91, Respiratory Rate: 12, BP: 152/73, Pulse Oximetry: 99, Weight: 127.730 Oxygen Flow Rate: 0 Pulse Oximetry Reflects: adequate oxygenation Physical Exam General Appearance: Mild distress HEENT: Normal OP, moist oral mucosa, PERRL, EOMI, tongue atraumatic, head and face atraumatic Neck: supple, normal ROM, trachea midline Pulmonary: No respiratory distress, CTA, BS equal Cardiac: RRR, no murmur, rub or gallop, GI: nondistended, soft, nontender, normal bowel sounds, no guarding, no rebound Extremities: normal ROM, no swelling, non-tender Skin: intact, dry, warm, no rashes Neuro: AAOx3, speech is clear, no focal motor weakness Psych: normal affect, good eye contact, no apparent hallucination, normal speech Progress Results/Orders Results/Orders Orders - MAURICE CARBALLO MD Urinalysis, Cult If Indicated (03/06/25 16:30) Chest,Single View (03/06/25 16:30) Monitor (03/06/25 16:30) Saline Lock (03/06/25 16:30) Straight Cath For Urine Sample (03/06/25 16:30) Completed Orders - MAURICE CARBALLO MD Cbc/Diff (03/06/25 16:30) Chest,Single View (03/06/25 16:30) * Npo Until Passed Bedside Swa (03/06/25 16:30) CMP (03/06/25 16:30) Levetiracetam-[id number]/100ml (Levetira (03/06/25 16:30) Divalproex Sod Er-24 Hr Tablet (Depakote (03/06/25 16:30) Meclizine Tablets (Antivert Tablet) (03/06/25 18:10) Morphine 4mg/Ml Inj. (Morphine Inj.) (03/06/25 18:10) Ketorolac Trometh 15mg/Ml Vial (Toradol (03/06/25 18:10) Vital Signs 03/06/25 03/06/25 03/06/25 03/06/25 16:20 16:26 18:00 18:42 Temp 98.3 Pulse 91 82 Resp 12 12 16 15 B/P (MAP) 152/73 143/88 (106) Pulse Ox 99 98 O2 Flow Rate 0 0 03/06/25 03/06/25 18:43 19:31 Pulse 82 Resp 15 16 B/P (MAP) 162/81 Pulse Ox 94 Laboratory Tests Test 03/06/25 16:48 White Blood Count 5.3 Red Blood Count 3.54 L Hemoglobin 11.6 L Hematocrit 34.4 L Mean Corpuscular Volume 97.2 Mean Corpuscular Hemoglobin 32.6 H Mean Corpuscular Hemoglobin Concent 33.6 Red Cell Distribution Width 15.9 H Platelet Count 349 Mean Platelet Volume 6.7 L Neutrophils (%) (Auto) 44.5 Lymphocytes (%) (Auto) 41.6 Monocytes (%) (Auto) 5.3 Eosinophils (%) (Auto) 7.5 H Basophils (%) (Auto) 1.1 H Neutrophils # (Auto) 2.4 Lymphocytes # (Auto) 2.2 Monocytes # (Auto) 0.3 Eosinophils # (Auto) 0.4 Basophils # (Auto) 0.1 CBC Comment Sodium Level 141 Potassium Level 3.1 L Chloride Level 106 Carbon Dioxide Level 24.3 Anion Gap 11 Blood Urea Nitrogen 18 Creatinine 0.97 H Estimated GFR/1.73 m2 57 BUN/Creatinine Ratio 18.6 Glucose Level 117 H Calcium Level 9.1 Total Bilirubin 0.4 Aspartate Amino Transf (AST/SGOT) 17 Alanine Aminotransferase (ALT/SGPT) 24 Alkaline Phosphatase 107 Total Protein 7.2 Albumin 3.5 Globulin 3.7 Albumin/Globulin Ratio 0.9 L Chemistry Comments Medical Decision Making Findings Differential diagnosis includes but is not limited to: Breakthrough seizure, electrolyte abnormalities, injury/trauma from seizure Chest x-ray, single view, indication: ALOC, seizure Independent interpretation: Lungs are clear, scoliosis, otherwise normal mediastinum, mild cardiomegaly. No acute cardiopulmonary process. I disagree with the radiology interpretation of pulmonary vascular congestion and pleural effusions. Laboratory data independent interpretation: CBC: CBC unremarkable, moderate anemia with a hemoglobin of 11.6 CMP: Mild hypokalemia potassium 3.1, LFTs and chemistries are otherwise unremarkable Emergency department course/medical decision-making: Patient presents with recurrent several seizures over the course of the 1/2 hour. However the patient's mental status is back to baseline and the patient is neurologically intact. Patient has not been on her Depakote or her Keppra because she never received it from the mail. Upon arrival patient is placed on conveyor monitor given 1 L of normal saline and given Keppra 1 g IV. Patient is also given Depakote 500 mg p.o.. Patient was observed for several hours without any recurrent seizures. Patient's lab work and chest x-ray is unremarkable. Patient is thought to be stable for discharge. Prescriptions have been written for her Keppra and Depakote for one month. Test results and treatment plan and all the above reviewed and discussed with the patient. Patient is given meclizine for her vertigo, Toradol morphine and Zofran for her headache and nausea. These symptoms are typical for her after a seizure. Patient is stable for discharge. Departure Disposition: HOME / SELF CARE / HOMELESS Impression: Primary Impression: Seizure disorder Condition: Improved Discharge Instructions: Seizure, Adult Additional Instructions: FOLLOW UP WITH YOUR NEUROLOGIST SOON POSSIBLE. Referrals: NO PRIMARY CARE PROVIDER (PCP) Prescriptions Levetiracetam (Keppra) 1,000 Mg Tablet 1 TAB PO Q12H for 30 Days, #60 TAB 0 Refills Prov: JASON ARBOLEDA MD 03/06/25 Divalproex ER* (Depakote ER*) 500 Mg Tab.sr.24h 1 TAB PO DAILY, #60 TAB Prov: JASON ARBOLEDA MD 03/06/25 Divalproex Sodium (Depakote Er) 500 Mg Tab.sr.24h 1 TAB PO Q12H for 30 Days, #60 TAB Prov: MAURICE CARBALLO MD 03/06/25 Levetiracetam (Keppra) 1,000 Mg Tablet 1 TAB PO Q12H for 30 Days, #60 TAB 0 Refills Prov: MAURICE CARBALLO MD 03/06/25 Education Educated: Patient, Family Educated regarding: diagnosis, treatment Signature Scribe Signature: NO SCRIBE Attestation: NO SCRIBE MAURICE CARBALLO MD Mar 06, 2025 17:53
[2025-03-06] MEDS ORDERED: DIVA500T4 PO (17:58)
[2025-03-06] MEDS ORDERED: LEVE10002 PO ×2 (17:58→19:28)
--- NOTE | 2025-03-06 18:34 | RADIOLOGY REPORT ---
CHEST RADIOGRAPH Indication: aloc Technique: Single frontal view of the chest was obtained Comparison: None FINDINGS: The cardiac silhouette is unremarkable. The lungs demonstrate no pulmonary airspace consolidation. Th e pulmonary vasculature is prominent. Small bilateral pleural effusions. There is no pneumothorax. IMPRESSION: Pulmonary vasculature congestion. Small bilateral pleural effusions.
[2025-03-06] MEDS: morphine 4 MG/ML inj SYRINge IV ONE (18:42)
[2025-03-06] MEDS: ketorolac trometh 15mg/ml vial 15 MG/ML ML IV ONE (18:43)
[2025-03-06] MEDS ORDERED: DIVA500T9 PO (19:28)
[2025-03-06 19:31] VITALS: BP 162/81; PULSE 82; RESP 16; O2SAT 94
== END 2025-03-06 19:35 | disposition home or self-care (01) ==
LOC: ER 16:15
DX: G40.909 Epilepsy, unspecified, not intractable, without status epilepticus (principal); E11.9 Type 2 diabetes mellitus without complications; I10 Essential (primary) hypertension; I48.91 Unspecified atrial fibrillation; J44.9 Chronic obstructive pulmonary disease, unspecified; F15.90 Other stimulant use, unspecified, uncomplicated; Z87.891 Personal history of nicotine dependence; Z88.1 Allergy status to other antibiotic agents; Z88.6 Allergy status to analgesic agent; Z88.8 Allergy status to other drugs, medicaments and biological substances
CPT/HCPCS: 36415; 71045; 80053; 85025; 96365; 96375; 99284; J1885; J1953; J2270; J8597

== ENCOUNTER 2025-03-21 10:56 | Emergency (ER) | payer MEDICARE, MEDICAID ==
[~2025-03-21] VITALS: Ht 172.7 cm; Wt 83.6 kg
[~2025-03-21 10:56] MED LIST changes: -LEVE10002 PO; -PERM60CR27 TOP
[2025-03-21 11:03] VITALS: TEMP 97.8
--- NOTE | 2025-03-21 11:28 | ELECTROCARDIOGRAPH REPORT ---
[facility] Test Date: 2025-03-21 Test Time: 11:26:08 Pat Name: JABARI PEÑA Department: EMERGENCY ROOM Room: Gender: F Civil Drafter: PRITESH : 1960 Requested By: SHIRA BOYD Order Number: [id number] Reading MD: Measurements Intervals Ault Rate: 74 P: 64 DE: 161 QRS: 50 QRSD: 96 T: 53 QT: 412 QTc: 457 Interpretive Statements Sinus rhythm Low voltage, precordial leads Abnormal R-wave progression, early transition Please click the below link to view image of tracing.
--- NOTE | 2025-03-21 11:44 | Physician Documentation ---
History of Present Illness ~ Chief Complaint: Seizure Stated Complaint: SZ Time Seen by MD: 11:31 Primary Medical Doctor: SCOTTIE Crespo [facility], Source: patient (6), old records (This is pt's 10th visit this year and 3rd visit this month) HPI Patient comes in for evaluation after a seizure. She has a history of seizure disorder and takes Depakote and Keppra, has both absence seizures and generalized tonic-clonic seizures, and has been seen multiple times for the same in the past. Today by report the patient had an absence seizure, her daughter helped her out of the chair, and there was no fall. Patient reports that might have been a small convulsion. Patient did not strike her head and had no trauma. She denies any tongue biting or urinary incontinence. When asked what had prompted her visit to the ED, as she has chronic seizures, she reports that her daughter could not bring her out of it. Patient arrived not in a postictal state. Pt uses a walker in the home, and a wheelchair when she leaves the house Medication Reconciliation Allergies: Coded Allergies: vancomycin (Verified Allergy, Severe, ANAPHYLAXIS, 03/21/25) chlorpromazine (Verified Allergy, Mild, RASH, 03/21/25) Fish Containing Products (Verified Allergy, Unknown, 03/21/25) NSAIDS (Non-Steroidal Anti-Inflamma (Verified Allergy, Unknown, 03/21/25) aspirin (Verified Allergy, Unknown, SOB, 03/21/25) black pepper (Verified Allergy, Unknown, 03/21/25) iodine (Verified Allergy, Unknown, ANAPHYLAXIS, 03/21/25) Scheduled Apixaban (Eliquis), 5 MG PO BID Atorvastatin Calcium* (Lipitor*), 1 TAB PO DAILY, (Reported) Buspirone HCl (Buspirone HCl), 1 TAB PO BID, (Reported) Divalproex Sodium DR* (Depakote DR*), 1 TAB PO Q12H, (Reported) Ferrous Sulfate (Ferosul), 325 MG PO BID, (Reported) Hydroxyzine Hcl* (Atarax*), 1 TAB PO QID, (Reported) Insulin Glargine,Hum.rec.anlog (Lantus), 25 UNITS SQ HS, (Reported) Insulin Lispro (Humalog), 5 UNITS SQ ACHS, (Reported) Lactobacillus Rhamnosus (Culturelle), 10,000 MMU PO DAILY Levetiracetam (Levetiracetam), 1 TAB PO BID, (Reported) Metoprolol Succinate (Metoprolol Succinate), 12.5 MG PO DAILY Naphazoline HCl/Phenir Mal (Naphcon-A Eye Drops), 1 DROP LEFTEYE Q6H Naphazoline HCl/Phenir Mal (Naphcon-A Eye Drops), 1 DROP RIGHTEYE Q6H Omeprazole (Prilosec), 1 CAP PO DAILY, (Reported) Prazosin HCl (Prazosin HCl), 1 CAP PO HS, (Reported) Quetiapine Fumarate (Seroquel Xr), 2 TAB PO HS, (Reported) Tiotropium [place] (Spiriva), 1 CAP INH DAILY, (Reported) Tizanidine Hcl (Zanaflex), 1 TAB PO TID, (Reported) Venlafaxine Hcl (Effexor), 3 TAB PO DAILY, (Reported) Scheduled PRN Ipratropium/Albuterol Sulfate (Duoneb 2.5-0.5 Mg/3 Ml Soln), 1 VIAL NEB Q6H PRN for wheezing, (Reported) Discontinued Medications Permethrin 5% Cream* (Elimite 5% Cream*), 1 APPLIC TOP ONCE Discontinued Reason: Auto Discontinued Past Medical History Past Medical History: Seizures, Atrial Fibrillation, Congestive Heart Failure, High Cholesterol, Hypertension, Asthma, COPD, Hepatitis C, Pancreatitis, Diabetes, Chronic Pain, Extremity Fracture, Anxiety, Depression Past Surgical History: abdominal surgery, orthopedic surgeries Other Past Surgical History: Hepatic surgeries Patient History: FH: asthma FATHER, FH: breast cancer MOTHER, FH: diabetes mellitus GRANDFATHER OR GRANDMOTHER, Name: Grandmother, FH: heart disease FATHER, Other Past Family History: Cancer in mother Smoking Status: Never smoker Alcohol Use: None Drug Use: none, methamphetamine (Denies today) Lives with: Family Lives In: Home Occupation: disabled Past Social History: Quit smoking 17 years ago, quit methamphetamines 13 years Review of Systems All Other Systems at this time: Reviewed and Negative Physical Exam Vital Signs: Temperature: 97.8, Source: Temporal, Heart Rate: 75, Respiratory Rate: 16, BP: 101/69, Pulse Oximetry: 98, Weight: 83.600 Oxygen Flow Rate: 0 Physical Exam General: Pt is awake, oriented x4 in no acute distress, chronically ill appearing and ill-conditioned, but is able to bring herself to a sitting position with minimal assistance. Head: Normocephalic and atraumatic. Face symmetrical Eyes: Conjunctiva normal. ENT: Mucous membranes moist. Tongue mucosa intact. Neck: Supple. Chest: Clear to auscultation bilaterally, without rales, rhonchi, or wheezes. There is no accessory muscle use or retractions. Cardiac: Regular rate and rhythm without murmurs, gallops or rubs. Palpation of the chest wall is normal. Abd: Soft, nondistended, nontender, with normoactive bowel sounds. No guarding or rebound. Extremities: Within normal limits without cyanosis, clubbing, or edema. Skin: [place], warm and dry with no significant rash appreciated. Neuro: Cranial nerves II-XII grossly intact. Moves all 4 extremities equally. The gait is not tested on this exam Progress Progress Note Pt remained awake, alert, and without any further seizure activity throughout her ED stay. She understood the need for the repeat blood draw for a comparison Depakote value, and the instructions to take a half dose (500mg only) of her depakote tonight and resume normal dose tomorrow. I had also advised her to f/u with her normal PMD early next week for a repeat draw. I both shared this information verbally with her and told her her discharge instructions would also clearly outline the plan. However I was told by the nursing staff that the patient's son arrived just as her repeat draw was occurring, and told her that they needed to leave right then, and would not wait for the blood draw to take place. Pt was in her wheelchair and he left with her before blood drawn or discharge instructions written out. Results/Orders Results/Orders Orders - SHIRA BOYD MD Levetiracetam, S (03/21/25 11:18) Valproate (03/21/25 14:18) Completed Orders - SHIRA BOYD MD Stat Ekg (03/21/25 11:15) Cbc/Diff (03/21/25 11:18) CMP (03/21/25 11:18) Valproate (03/21/25 11:18) Vital Signs 7/1803/21/25 03/21/25 03/21/25 11:03 12:03 12:06 12:51 Temp 97.8 Pulse 75 69 69 Resp 16 13 12 B/P (MAP) 101/69 99/57 (71) 113/61 (78) Pulse Ox 98 99 98 O2 Flow Rate 0 0 0 03/21/25 13:37 Pulse 68 Resp 14 B/P (MAP) 120/60 (80) Pulse Ox 96 O2 Flow Rate 0 Laboratory Tests Test 03/21/25 11:48 White Blood Count 3.4 L Red Blood Count 3.81 L Hemoglobin 12.4 Hematocrit 36.8 Mean Corpuscular Volume 96.5 Mean Corpuscular Hemoglobin 32.4 H Mean Corpuscular Hemoglobin Concent 33.6 Red Cell Distribution Width 14.0 Platelet Count 253 Mean Platelet Volume 7.6 Neutrophils (%) (Auto) 38.3 L Lymphocytes (%) (Auto) 50.8 Monocytes (%) (Auto) 4.2 Eosinophils (%) (Auto) 5.8 Basophils (%) (Auto) 0.9 Neutrophils # (Auto) 1.3 L Lymphocytes # (Auto) 1.7 Monocytes # (Auto) 0.1 Eosinophils # (Auto) 0.2 Basophils # (Auto) 0.0 CBC Comment Sodium Level 139 Potassium Level 4.2 Chloride Level 104 Carbon Dioxide Level 28.1 Anion Gap 7 L Blood Urea Nitrogen 19 H Creatinine 0.95 H Estimated GFR/1.73 m2 59 BUN/Creatinine Ratio 20.0 Glucose Level 105 H Calcium Level 9.0 Total Bilirubin 0.4 Aspartate Amino Transf (AST/SGOT) 21 Alanine Aminotransferase (ALT/SGPT) 12 Alkaline Phosphatase 101 Total Protein 6.9 Albumin 3.0 L Globulin 3.9 Albumin/Globulin Ratio 0.8 L Chemistry Comments Valproic Acid (Depakene) Level 126 H Consults/PCP Consults/PCP : Time Call Requested: 14:02 Consult Reason/Comments: Poison Control Additional Comment Spoke with poison control at 2:10 p.m.. V valproate level of 126 is at the very upper limit of therapeutic, and they felt that she requires another level 3 hours after the 1st draw, to ensure that it is not rising. If not rising, patient can go home, has a half dose tonight, and resume normal doses tomorrow until she can follow up with her PMD next week. Medical Decision Making Additional Comment Patient presented after a seizure, history of breakthrough seizures normally, and found to have a Depakote level elevated just over the upper limit of therapeutic. There was no acute overdose noted, and patient reports she has b een taking her medications as directed. She remained seizure free throughout her emergency department stay, but as noted above her son left with her before the plan can be carried out to double check her Depakote levels. It is to be hoped that she will follow the verbal instructions that I gave her prior to her leaving against medical advice. Departure Disposition: LEFT AGAINST MEDICAL ADVICE Impression: Primary Impression: Seizure disorder Additional Impression: Supratherapeutic anticonvulsant level Condition: Stable Additional Instructions: Pt left without aftercare instructions Referrals: NO PRIMARY CARE PROVIDER (PCP) Education Educated: Patient Educated regarding: diagnosis, treatment Signature Scribe Signature: Attestation: SHIRA BOYD MD Mar 21, 2025 11:44
[2025-03-21 11:57] LABS: MEAN PLATELET VOLUME 7.6 FL (7.4-10.4); RED CELL DISTRIBUTION WIDTH 14.0 % (11.5-14.5)
[2025-03-21 12:13] LABS: CREATININE 0.95 MG/DL (0.40-0.90); TOTAL CARBON DIOXIDE 28.1 MMOL/L (24-32); eCRCL 59 ML/MIN; eGFR 59 ML/MIN
[2025-03-21 12:14] LABS: VALPROATE 126 UG/ML (50-100)
[2025-03-21 13:37] VITALS: BP 120/60; PULSE 68; RESP 14; O2SAT 96
== END 2025-03-21 15:29 | disposition left against medical advice (07) ==
LOC: ER 10:57
DX: G40.909 Epilepsy, unspecified, not intractable, without status epilepticus (principal); E11.9 Type 2 diabetes mellitus without complications; E78.00 Pure hypercholesterolemia, unspecified; I11.0 Hypertensive heart disease with heart failure; I50.9 Heart failure, unspecified; I48.91 Unspecified atrial fibrillation; J44.9 Chronic obstructive pulmonary disease, unspecified; Z88.1 Allergy status to other antibiotic agents; Z88.6 Allergy status to analgesic agent; Z88.8 Allergy status to other drugs, medicaments and biological substances
CPT/HCPCS: 36415; 80053; 80164; 80177; 85025; 93005; 99284

== ENCOUNTER 2025-04-14 14:46 | Emergency (ER) | payer MEDICARE, MEDICAID ==
[~2025-04-14] VITALS: Ht 165.1 cm; Wt 73.7 kg
[~2025-04-14 14:46] MED LIST changes: +DIVA-134 PO; -DIVA-76 PO
[2025-04-14 14:48] VITALS: TEMP 98.6
--- NOTE | 2025-04-14 15:02 | Physician Documentation ---
History of Present Illness ~ Chief Complaint: See Chief Complaint Stated Complaint: ALOC Time Seen by MD: 14:50 Primary Medical Doctor: Paddy Encinas [facility], MD S[place]SA This is a 64-year-old female who currently resides at a senior care [facility], brought in from the facility because evidently she was violent. No description of the violence was given. Patient herself states that she was transported because they are telling me that I am seeing things and hearing things. She states that her son also tells her the same thing. She states that yesterday evening she wanted to spend the night at the senior care [facility] with her grandchild, however apparently it was not allowed. She tells me that somehow her brother who is also with the [facility] was able to spend a the night with her son. She could hear them when they television was on, in the background, however admits that when the sound on the TV was muted, she was no longer able to hear the TV or them. She states that she has chronic pain, this is unchanged. She reports hip pain, this is also unchanged. She denies any chest pain, difficulty breathing, nausea, vomiting, diarrhea, abdominal pain, urinary symptoms. Very remote history of methamphetamine use. Medication Reconciliation Allergies: Coded Allergies: vancomycin (Verified Allergy, Severe, ANAPHYLAXIS, 03/21/25) chlorpromazine (Verified Allergy, Mild, RASH, 03/21/25) Fish Containing Products (Verified Allergy, Unknown, 03/21/25) NSAIDS (Non-Steroidal Anti-Inflamma (Verified Allergy, Unknown, 03/21/25) aspirin (Verified Allergy, Unknown, SOB, 03/21/25) black pepper (Verified Allergy, Unknown, 03/21/25) iodine (Verified Allergy, Unknown, ANAPHYLAXIS, 03/21/25) Scheduled Apixaban (Eliquis), 5 MG PO BID Atorvastatin Calcium* (Lipitor*), 1 TAB PO DAILY, (Reported) Buspirone HCl (Buspirone HCl), 1 TAB PO BID, (Reported) Divalproex Sodium DR* (Depakote DR*), 1 TAB PO Q12H, (Reported) Ferrous Sulfate (Ferosul), 325 MG PO BID, (Reported) Hydroxyzine Hcl* (Atarax*), 1 TAB PO QID, (Reported) Insulin Glargine,Hum.rec.anlog (Lantus), 25 UNITS SQ HS, (Reported) Insulin Lispro (Humalog), 5 UNITS SQ ACHS, (Reported) Lactobacillus Rhamnosus (Culturelle), 10,000 MMU PO DAILY Levetiracetam (Levetiracetam), 1 TAB PO BID, (Reported) Metoprolol Succinate (Metoprolol Succinate), 12.5 MG PO DAILY Naphazoline HCl/Phenir Mal (Naphcon-A Eye Drops), 1 DROP LEFTEYE Q6H Naphazoline HCl/Phenir Mal (Naphcon-A Eye Drops), 1 DROP RIGHTEYE Q6H Omeprazole (Prilosec), 1 CAP PO DAILY, (Reported) Prazosin HCl (Prazosin HCl), 1 CAP PO HS, (Reported) Quetiapine Fumarate (Seroquel Xr), 2 TAB PO HS, (Reported) Tiotropium [place] (Spiriva), 1 CAP INH DAILY, (Reported) Tizanidine Hcl (Zanaflex), 1 TAB PO TID, (Reported) Venlafaxine Hcl (Effexor), 3 TAB PO DAILY, (Reported) Scheduled PRN Ipratropium/Albuterol Sulfate (Duoneb 2.5-0.5 Mg/3 Ml Soln), 1 VIAL NEB Q6H PRN for wheezing, (Reported) Past Medical History Past Medical History: Seizures, Atrial Fibrillation, Congestive Heart Failure, High Cholesterol, Hypertension, Asthma, COPD, Hepatitis C, Pancreatitis, Diabetes, Chronic Pain, Extremity Fracture, Anxiety, Depression Past Surgical History: abdominal surgery, orthopedic surgeries Other Past Surgical History: Hepatic surgeries Patient History: FH: asthma FATHER, FH: breast cancer MOTHER, FH: diabetes mellitus GRANDFATHER OR GRANDMOTHER, Name: Grandmother, FH: heart disease FATHER, Other Past Family History: Cancer in mother Alcohol Use: None Drug Use: none, methamphetamine Lives with: Family Lives In: Home Occupation: disabled Review of Systems ROS 10 point review of systems was performed and unless noted above in HPI is negative for acute process/complaint. Physical Exam Vital Signs: Temperature: 98.6, Source: Oral, Heart Rate: 118, Respiratory Rate: 21, BP: 121/55, Pulse Oximetry: 95, Weight: 73.650 Oxygen Flow Rate: 0 Physical Exam GENERAL: Awake, alert, oriented, GCS 15, no apparent distress, non-toxic appearing, answers questions, follows commands appropriately. HEENT: Atraumatic, normocephalic, pupils equal, extraocular muscles intact, sclerae anicteric, mucus membranes moist, oropharynx is clear, no stridor. NECK: supple, full active range of motion, trachea midline, no thyromegaly, no lymphadenopathy, no JVD. CARDIOVASCULAR: regular rate/rhythm, no murmurs/gallops/rubs, Pulses are 2+ in all extremities and symmetric. Capillary refill less than 2 seconds. PULMONARY: Nonlabored, good air movement ,no respiratory distress, speaking in full sentences, clear to auscultation bilaterally, no wheezing, no ronchi, no rales, no accessory muscle use. GASTROINTESTINAL: Soft, non-tender, non-distended, normal active bowel sounds, n o organomegaly, no pulsatile masses, no CVA tenderness. NEUROLOGIC: Lucid with normal mental status. Normal facial symmetry. Moves all extremities symmetrically and with purpose. No truncal ataxia. Speech is fluid without evidence of dysarthria or aphasia, no focal deficits appreciated. MUSCULOSKELETAL: There is full range of motion of all extremities. There is no joint pain or joint swelling or joint erythema. There is no muscle pain or tenderness or swelling. EXTREMITIES: warm, well-perfused, no cyanosis, no clubbing, no edema, no acute deformities. Skin: warm, dry, no rashes or lesions, no jaundice, no petechiae orpurpura. No ecchymosis. PSYCHIATRIC: Normal affect, normal insight, normal concentration. Focused exam: She does not appear to be responding to internal stimuli at this time. She is not suicidal or homicidal. Progress Results/Orders Results/Orders Orders - SU RUSH DO Urinalysis, Cult If Indicated (04/14/25 14:54) Ct Head (04/14/25 15:21) Drug Screen, Urine (04/14/25 15:02) Completed Orders - SU RUSH DO Cbc/Diff (04/14/25 14:54) MG (04/14/25 14:54) TSH (04/14/25 14:54) Free T4 (04/14/25 14:54) Ct Head (04/14/25 15:21) CMP (04/14/25 14:54) Ethanol (04/14/25 15:02) Vital Signs 04/14/25 14:48 Temp 98.6 Pulse 118 Resp 21 B/P (MAP) 121/55 Pulse Ox 95 O2 Flow Rate 0 Laboratory Tests Test 04/14/25 15:06 White Blood Count 3.9 L Red Blood Count 3.43 L Hemoglobin 11.2 L Hematocrit 33.1 L Mean Corpuscular Volume 96.5 Mean Corpuscular Hemoglobin 32.6 H Mean Corpuscular Hemoglobin Concent 33.7 Red Cell Distribution Width 15.1 H Platelet Count 229 Mean Platelet Volume 6.8 L Neutrophils (%) (Auto) 35.9 L Lymphocytes (%) (Auto) 50.4 Monocytes (%) (Auto) 6.3 Eosinophils (%) (Auto) 5.8 Basophils (%) (Auto) 1.6 H Neutrophils # (Auto) 1.4 L Lymphocytes # (Auto) 1.9 Monocytes # (Auto) 0.2 Eosinophils # (Auto) 0.2 Basophils # (Auto) 0.1 CBC Comment Sodium Level 142 Potassium Level 5.0 Chloride Level 109 H Carbon Dioxide Level 24.4 Anion Gap 9 Blood Urea Nitrogen 13 Creatinine 1.24 H Estimated GFR/1.73 m2 43 BUN/Creatinine Ratio 10.5 Glucose Level 137 H Calcium Level 8.8 Magnesium Level 1.9 Total Bilirubin 0.2 Aspartate Amino Transf (AST/SGOT) 28 Alanine Aminotransferase (ALT/SGPT) 49 Alkaline Phosphatase 102 Total Protein 6.3 L Albumin 3.1 L Globulin 3.2 Albumin/Globulin Ratio 1.0 L Thyroid Stimulating Hormone (TSH) 8.29 H Free Thyroxine 0.53 L Chemistry Comments Ethyl Alcohol Level < 10 Medical Decision Making Findings Facility Status: ED Holds, [facility] process The plan was discussed with the patient, who demonstrates clear understanding of the plan and is in agreement with the plan unless otherwise noted in the chart. All questions have been answered, all concerns were addressed unless otherwise documented. I was available throughout their ED stay for frequent reassessment and questions. Differential Diagnoses (considered and possible or likely): [Delirium secondary to urinary tract infection, pneumonia, occult bacteremia, electrolyte derangement, acute intracranial process, new onset dementia, psychiatric decompensation, less likely alcohol intoxication, less likely methamphetamine intoxication likely alone withdrawal] ??Differential Diagnoses (considered and unlikely, not requiring evaluation currently): [See above] MDM Data Please see HPI for the following: Independent Historians and external Records Review. Historian: [Patient] Independent Historians: ?[EMS, record review] Medication Management: [Reviewed medication list] Social History and determinants: [Reviewed] Please see the body of the note for the following: Any independent interpretations of ECG, imaging studies. All vitals signs/haemodynamics, ordered tests were independently reviewed and interpreted by myself. Nursing triage complaint and vitals reviewed, additional nursing notes were reviewed as available and I agree unless otherwise noted or documented in contradiction in the chart Vital Signs: Independently reviewed Labs: Independently interpreted Imaging: Independently interpreted Old Medical Records: Independently reviewed, see HPI for relevant summary and information Pulse Oximetry: [97%] interpreted as [normal on room air] by me Additionally notably showing: [Hemodynamically stable. Laboratory workup notable for elevated TSH. CT is negative.] Tests considered but not ordered include: [MRI brain can be done on an outpatient basis] Social Determinants of Health Impact: Patient was evaluated in [place], [facility] [place] with limited access to healthcare due to below par ratio of patient to medical providers. [] Comorbid Conditions Impacting Present Evaluation and Care/Treatment: [Multiple, see list] Management Discussions with other Healthcare Providers: [None appear] Treatment and Disposition Medication Management (Given or considered): []. See EMR for details Consideration for Hospitalization/Escalation/Deescalation of Care: Admission for observation has been considered, [however the patient is able to tolerate p.o., their symptoms are controlled, they are able to rely on oral medications, and their chief complaint/diagnosis can be managed on outpatient basis.] ?ED Course:?[Patient appears to be appropriate, she is not responding to internal stimuli. She decided that she did not want to provide us with a urine and wanted to leave. We do not have legal reason to hold her here against her will. The patient was allowed to elope. ?Shared decision making:?[] Code status:?FULL Please see the full Electronic Medical Record for full details of nursing documentation, medications list, other records of complete past medical history and conditions, vital signs, laboratory studies, and any radiologic study interpretations by radiologists. Portions of this note were completed using [employer] dictation software and as a result there may exist minor errors in spelling. I have reviewed elements of past family and social history and agree as included in note. Departure Disposition: 07 LEFT AWOL/ELOPED Impression: Primary Impression: Aggressive behavior Additional Impression: Auditory hallucinations Referrals: NO PRIMARY CARE PROVIDER (PCP) Signature Scribe Signature: No scribe Attestation: This note accurately reflects clinical decisions, work performed by myself, DO ADRI Worthington NICHOLAS M DO Apr 14, 2025 15:02
[2025-04-14 15:12] LABS: MEAN PLATELET VOLUME 6.8 FL (7.4-10.4); RED CELL DISTRIBUTION WIDTH 15.1 % (11.5-14.5)
[2025-04-14 15:29] LABS: CREATININE 1.24 MG/DL (0.40-0.90); TOTAL CARBON DIOXIDE 24.4 MMOL/L (24-32); eCRCL 40 ML/MIN; eGFR 43 ML/MIN
--- NOTE | 2025-04-14 15:37 | RADIOLOGY REPORT ---
CT CT HEAD INDICATION: New onset hallucinations EXAM DATE: 04/14/2025 03:11 PM COMPARISON: CT CT HEAD on DOS: 03/08/25, CT CT CERVICAL SPINE on DOS: 02/14/25, CT CT HEAD on DOS: RADIATION DOSE: CTDIvol: 56 mGy, DLP: 1121 mGy*cm PROCEDURE: CT scans of the head were obtained from the vertex to the skull base. Sagittal and coronal reconstructions were provided. All CT scans at this medical facility are performed using dose modulation techniques as appropriate t o a performed exam including the following: Automated exposure control was utilized; adjustment of th e MA and/or KV according to patient size; and use of iterative reconstruction technique. FINDINGS: There is sulcal and ventricular prominence. The brainshows normal morphology and dai-whi te matter differentiation, without intracranial hemorrhage, extra-axial fluid collection, mass effect or acute large vessel infarct. The ventricles are normal in size. The basal cisterns are patent. The skull and visible facial bones are intact. The paranasal sinuses, mastoid air cells and middle ear c avities are well-aerated. The soft tissues of the scalp are unremarkable. IMPRESSION: No acute intracranial abnormality.
[2025-04-14 15:38] LABS: ETHANOL < 10 MG/DL (<10)
[2025-04-14 17:01] VITALS: BP 150/63; PULSE 97; RESP 16; O2SAT 98
== END 2025-04-14 17:40 | disposition left against medical advice (07) ==
LOC: ER 14:46
DX: R44.0 Auditory hallucinations (principal); J44.9 Chronic obstructive pulmonary disease, unspecified; I11.0 Hypertensive heart disease with heart failure; I50.9 Heart failure, unspecified; I48.91 Unspecified atrial fibrillation; E78.00 Pure hypercholesterolemia, unspecified; E11.9 Type 2 diabetes mellitus without complications; F41.9 Anxiety disorder, unspecified; F32.A Depression, unspecified; F15.90 Other stimulant use, unspecified, uncomplicated; Z88.6 Allergy status to analgesic agent; Z88.1 Allergy status to other antibiotic agents; Z88.8 Allergy status to other drugs, medicaments and biological substances; Z79.899 Other long term (current) drug therapy; Z79.82 Long term (current) use of aspirin
CPT/HCPCS: 36415; 70450; 80053; 83735; 84439; 84443; 85025; 99284; G0480; 80320

== ENCOUNTER 2025-04-17 22:41 | Emergency (ER) | payer MEDICARE, MEDICAID ==
[~2025-04-17] VITALS: Ht 177.8 cm; Wt 90.9 kg
[2025-04-17] MEDS: MIDAZolam 5mg/ml 2ml vial IM ONE (23:32)
[2025-04-17] MEDS: haloperidol lactate 5mg/ml inj IM ONE (23:32)
--- NOTE | 2025-04-17 23:41 | Physician Documentation ---
History of Present Illness ~ Chief Complaint: See Chief Complaint Stated Complaint: EVAL [employer] Time Seen by MD: 23:37 Primary Medical Doctor: Paddy Encinas [facility], ER HPI Patient presents to the emergency room sent from her living facility for suicidal ideation and erratic behavior. Patient that has reported to be yelling from the facility and upon arrival to our facility that has extremely agitated pulling out her hair. She endorses some degree of suicidal thoughts and has been uncooperative in our history taking. Medication Reconciliation Allergies: Coded Allergies: vancomycin (Verified Allergy, Severe, ANAPHYLAXIS, 03/21/25) chlorpromazine (Verified Allergy, Mild, RASH, 03/21/25) Fish Containing Products (Verified Allergy, Unknown, 03/21/25) NSAIDS (Non-Steroidal Anti-Inflamma (Verified Allergy, Unknown, 03/21/25) aspirin (Verified Allergy, Unknown, SOB, 03/21/25) black pepper (Verified Allergy, Unknown, 03/21/25) iodine (Verified Allergy, Unknown, ANAPHYLAXIS, 03/21/25) Scheduled Apixaban (Eliquis), 5 MG PO BID Atorvastatin Calcium* (Lipitor*), 1 TAB PO DAILY, (Reported) Buspirone HCl (Buspirone HCl), 1 TAB PO BID, (Reported) Divalproex Sodium DR* (Depakote DR*), 1 TAB PO Q12H, (Reported) Ferrous Sulfate (Ferosul), 325 MG PO BID, (Reported) Hydroxyzine Hcl* (Atarax*), 1 TAB PO QID, (Reported) Insulin Glargine,Hum.rec.anlog (Lantus), 25 UNITS SQ HS, (Reported) Insulin Lispro (Humalog), 5 UNITS SQ ACHS, (Reported) Lactobacillus Rhamnosus (Culturelle), 10,000 MMU PO DAILY Levetiracetam (Levetiracetam), 1 TAB PO BID, (Reported) Metoprolol Succinate (Metoprolol Succinate), 12.5 MG PO DAILY Naphazoline HCl/Phenir Mal (Naphcon-A Eye Drops), 1 DROP LEFTEYE Q6H Naphazoline HCl/Phenir Mal (Naphcon-A Eye Drops), 1 DROP RIGHTEYE Q6H Omeprazole (Prilosec), 1 CAP PO DAILY, (Reported) Prazosin HCl (Prazosin HCl), 1 CAP PO HS, (Reported) Quetiapine Fumarate (Seroquel Xr), 2 TAB PO HS, (Reported) Tiotropium [place] (Spiriva), 1 CAP INH DAILY, (Reported) Tizanidine Hcl (Zanaflex), 1 TAB PO TID, (Reported) Venlafaxine Hcl (Effexor), 3 TAB PO DAILY, (Reported) Scheduled PRN Ipratropium/Albuterol Sulfate (Duoneb 2.5-0.5 Mg/3 Ml Soln), 1 VIAL NEB Q6H PRN for wheezing, (Reported) Past Medical History Past Medical History: Seizures, Atrial Fibrillation, Congestive Heart Failure, High Cholesterol, Hypertension, Asthma, COPD, Hepatitis C, Pancreatitis, Diabetes, Chronic Pain, Extremity Fracture, Anxiety, Depression Past Surgical History: abdominal surgery, orthopedic surgeries Other Past Surgical History: Hepatic surgeries Patient History: FH: asthma FATHER, FH: breast cancer MOTHER, FH: diabetes mellitus GRANDFATHER OR GRANDMOTHER, Name: Grandmother, FH: heart disease FATHER, Other Past Family History: Cancer in mother Alcohol Use: None Drug Use: none, methamphetamine Lives with: Family Lives In: Home Occupation: disabled Review of Systems ROS Patient is uncooperative with review of systems Physical Exam Vital Signs: Temperature: 97.8, Source: Oral, Heart Rate: 106, Respiratory Rate: 16, BP: 119/60, Pulse Oximetry: 96, Weight: 90.910 General Appearance General: Patient is awake, alert, oriented x4 in no acute distress Head: Normocephalic and atraumatic. Eyes: Conjunctival normal. EOMI. PERRL. ENT: Mucous membranes moist. Neck: Supple, trachea is midline. Chest: Clear to auscultation bilaterally without rales, rhonchi, or wheezes. There is no accessory muscle use or retractions. Cardiac: Tachycardic and regular without murmurs, gallops, or rubs. Psych: Poor eye contact, agitated, avoidant Progress Results/Orders Results/Orders Orders - FERNANDO BENNETT MD Urinalysis (04/17/25 22:58) Drug Screen, Urine (04/17/25 22:58) Med Rec (04/17/25 22:58) Covid19 Binax Poc Result Entry (04/17/25 22:58) 1799.11 (04/17/25 23:37) Completed Orders - FERNANDO BENNETT MD Diphenhydramine Inj (Benadryl Inj.) (04/17/25 23:05) Midazolam 5 Mg/Ml 2ml Inj (Versed 5 Mg/M (04/17/25 23:05) Haloperidol Lact. (Haldol) (04/17/25 23:05) Cbc/Diff (04/17/25 22:58) Ethanol (04/17/25 22:58) TSH (04/17/25 22:58) BMP (04/17/25 22:58) Medications Received in ER Medications (Trade) Dose Ordered Sig/Misbah Route PRN Reason Start Time Stop Time Status Last Admin Dose Admin (Benadryl inj.) 50 mg ONCE ONCE IM 04/17/25 23:05 04/17/25 23:07 DC 04/17/25 23:32 50 MG (Versed 5 MG/ML 2ML inj) 5 mg ONCE ONCE IM 04/17/25 23:05 04/17/25 23:12 DC 04/17/25 23:32 5 MG (Haldol) 5 mg ONCE ONCE IM 04/17/25 23:05 04/17/25 23:12 DC 04/17/25 23:32 5 MG Vital Signs 04/17/25 04/17/25 22:47 23:45 Temp 97.8 98.0 Pulse 106 102 Resp 16 16 B/P (MAP) 119/60 128/80 (96) Pulse Ox 96 99 Laboratory Tests Test 04/17/25 22:47 04/17/25 23:57 SARS-CoV-2 Antigen (Rapid) Negative White Blood Count 3.8 L Red Blood Count 3.23 L Hemoglobin 10.5 L Hematocrit 31.1 L Mean Corpuscular Volume 96.2 Mean Corpuscular Hemoglobin 32.6 H Mean Corpuscular Hemoglobin Concent 33.9 Red Cell Distribution Width 15.3 H Platelet Count 225 Mean Platelet Volume 6.6 L Neutrophils (%) (Auto) 31.3 L Lymphocytes (%) (Auto) 56.8 H Monocytes (%) (Auto) 5.6 Eosinophils (%) (Auto) 5.3 Basophils (%) (Auto) 1.0 Neutrophils # (Auto) 1.2 L Lymphocytes # (Auto) 2.2 Monocytes # (Auto) 0.2 Eosinophils # (Auto) 0.2 Basophils # (Auto) 0.0 CBC Comment Sodium Level 140 Potassium Level 4.1 Chloride Level 107 Carbon Dioxide Level 26.5 Anion Gap 7 L Blood Urea Nitrogen 17 Creatinine 1.00 H Estimated GFR/1.73 m2 55 BUN/Creatinine Ratio 17.0 Glucose Level 113 H Calcium Level 8.8 Albumin 3.0 L Thyroid Stimulating Hormone (TSH) 7.42 H Chemistry Comments Ethyl Alcohol Level < 10 Medical Decision Making Findings Patient presents to the emergency room and significant distress likely secondary to psychosis. Patient was uncooperative and requires sedation. Labs reviewed and there was no evidence of major pathologic derangements and patient is medically cleared for mental health evaluation. Noted elevation of TSH and we will order a free T4 to help with treatment Departure Disposition: 30 STILL A PATIENT Impression: Primary Impression: Psychosis Additional Impression: Elevated TSH Condition: Guarded Referrals: NO PRIMARY CARE PROVIDER (PCP) Signature Scribe Signature: No scribe Attestation: The note accurately reflects work and decisions made by me.Fernando Bennett MD 04/18/25 01:27 FERNANDO BENNETT MD Apr 17, 2025 23:40
[2025-04-18 00:05] LABS: MEAN PLATELET VOLUME 6.6 FL (7.4-10.4); RED CELL DISTRIBUTION WIDTH 15.3 % (11.5-14.5)
[2025-04-18 00:31] LABS: CREATININE 1.00 MG/DL (0.40-0.90); TOTAL CARBON DIOXIDE 26.5 MMOL/L (24-32); eCRCL 60 ML/MIN; eGFR 55 ML/MIN
[2025-04-18 00:33] LABS: ETHANOL < 10 MG/DL (<10)
[2025-04-18 05:40] VITALS: O2SAT 92
[2025-04-18 07:33] LABS: LEUKOCYTE ESTERASE ,URINE NEGATIVE (Neg); NITRITES, URINE NEGATIVE (Neg); OCCULT BLOOD,URINE NEGATIVE (Neg)
[2025-04-18 07:41] LABS: UA COLLECTION TYPE CLN CATCH MIDSTREAM
[2025-04-18 07:48] LABS: URINE AMPHETAMINE SCREEN NEGATIVE (Neg); URINE BARBITUATE SCREEN NEGATIVE (Neg); URINE BENZODIAZEPINES SCREEN POSITIVE (Neg); URINE CANNABINOID SCREEN NEGATIVE (Neg); URINE COCAINE SCREEN NEGATIVE (Neg); URINE METHADONE SCREEN NEGATIVE (Neg); URINE OPIATE SCREEN POSITIVE (Neg); URINE PHENCYCLIDINE SCREEN NEGATIVE (Neg)
[2025-04-18] MEDS ORDERED: METO-395 PO (08:39)
[2025-04-18] MEDS ORDERED: ipratropium/albuterol 3ml nebule NEB PRN (09:40)
[2025-04-18] MEDS: INSULIN LISPRO 100 UNIT/ML INSULN.PEN MULTI-DOSE SQ SCH (12:00)
[2025-04-18] MEDS: ipratropium 0.5 MG/2.5ML nebule NEB SCH (14:00)
[2025-04-18 17:16] VITALS: BP 134/61; PULSE 82; RESP 15; TEMP 96.5
[2025-04-18] MEDS ORDERED: busPIRone 15mg tablet PO SCH (20:00)
[2025-04-18] MEDS ORDERED: divalproex sodium 500mg tablet.DR PO SCH (20:00)
[2025-04-18] MEDS ORDERED: insulin glargine (Lantus) pen - multi-dose SQ SCH (21:00)
[2025-04-18] MEDS ORDERED: prazosin 5mg capsule PO SCH (21:00)
[2025-04-19] MEDS ORDERED: metoprolol succinate 25mg (24-HOUR) SR. Tablet PO SCH (08:00)
[2025-04-19] MEDS ORDERED: pantoprazole 40mg Tablet.DR PO SCH (08:00)
== END 2025-04-18 17:20 ==
LOC: ER 22:41
DX: F29 Unspecified psychosis not due to a substance or known physiological condition (principal); I11.0 Hypertensive heart disease with heart failure; I50.9 Heart failure, unspecified; E11.9 Type 2 diabetes mellitus without complications; E78.00 Pure hypercholesterolemia, unspecified; I48.91 Unspecified atrial fibrillation; J44.9 Chronic obstructive pulmonary disease, unspecified; Z20.822 Contact with and (suspected) exposure to COVID-19; Z88.1 Allergy status to other antibiotic agents; Z88.6 Allergy status to analgesic agent; Z88.8 Allergy status to other drugs, medicaments and biological substances; Z79.899 Other long term (current) drug therapy
CPT/HCPCS: 36415; 80048; 80305; 81003; 82948; 84439; 84443; 85025; 87811; 96372; 99285; G0480; J1200; J1630; J1815; J2250; Q0177; 80320

== ENCOUNTER 2025-07-07 21:27 | Emergency (ER) | payer MEDICARE, MEDICAID ==
[~2025-07-07] VITALS: Ht 177.8 cm; Wt 112.0 kg
[~2025-07-07 21:27] MED LIST changes: -LACT1CAP26 PO; -NAPAOS LEFTEYE; -NAPAOS RIGHTEYE
[2025-07-07 21:35] VITALS: TEMP 97.7
--- NOTE | 2025-07-07 22:15 | ELECTROCARDIOGRAPH REPORT ---
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 Levy Owen Measurements Intervals [place] Rate: 110 P: 41 IN: 116 QRS: 27 QRSD: 109 T: 35 QT: 490 QTc: 664 Interpretive Statements Sinus tachycardia Low voltage, precordial leads Prolonged QT interval Electronically Signed On 07-08-2025 20:42:[address] Levy Owen Please click the below link to view image of tracing.
--- NOTE | 2025-07-07 22:24 | RADIOLOGY REPORT ---
CLINICAL HISTORY: HEADSTRIKE, POSSIBLE SEIZURE TECHNIQUE: Helical imaging carried out from skull base to vertex without intravenous contrast. This exam was performed according to our departmental dose optimization program. Up-to-date CT equipment and radiation dose reduction techniques are utilized as appropriate. CTDIVol: 71.73 mGy DLP: 1296.8 mGy-cm WID: COMPARISON: CT CT HEAD on DOS: 04/14/25 FINDINGS: The ventricles and subarachnoid spaces are normal in size and configuration. There is no midline shift or mass effect. The dai white matter interfaces are maintained. The basal cisterns are patent. There is no evidence of acute intracranial hemorrhage or extra-axial fluid collection. The mastoid air cells and visualized paranasal sinuses are well-aerated. IMPRESSION: 1. No acute intracranial abnormality.
[2025-07-07] MEDS: normal saline 1000ml 1,000 ML IV ONE (23:24)
[2025-07-07 23:29] LABS: MEAN PLATELET VOLUME 6.5 FL (7.4-10.4); RED CELL DISTRIBUTION WIDTH 16.4 % (11.5-14.5)
[2025-07-07 23:42] LABS: CREATININE 1.71 MG/DL (0.40-0.90); TOTAL CARBON DIOXIDE 25.1 MMOL/L (24-32); eCRCL 35 ML/MIN; eGFR 30 ML/MIN
[2025-07-07 23:49] LABS: PRO BRAIN NATRIURETIC PEPTIDE 1264 PG/ML (0-125)
--- NOTE | 2025-07-08 03:54 | Physician Documentation ---
History of Present Illness ~ Chief Complaint: Seizure Stated Complaint: SEIZURE Time Seen by MD: 22:34 Primary Medical Doctor: Paddy Encinas [facility], Mode of Arrival: EMS, Ambulatory HPI 64 year old female BIB EMS for possible seizure, found on floor at care facility, was unsure what happened. She complained of a headache. She has history of seizure disorder. Denies fever, N/V/D, cough, shortness of breath. Medication Reconciliation Allergies: Coded Allergies: vancomycin (Verified Allergy, Severe, ANAPHYLAXIS, 03/21/25) chlorpromazine (Verified Allergy, Mild, RASH, 03/21/25) Fish Containing Products (Verified Allergy, Unknown, 03/21/25) NSAIDS (Non-Steroidal Anti-Inflamma (Verified Allergy, Unknown, 03/21/25) aspirin (Verified Allergy, Unknown, SOB, 03/21/25) black pepper (Verified Allergy, Unknown, 03/21/25) iodine (Verified Allergy, Unknown, ANAPHYLAXIS, 03/21/25) Scheduled Apixaban (Eliquis), 5 MG PO BID Atorvastatin Calcium* (Lipitor*), 1 TAB PO DAILY, (Reported) Buspirone HCl (Buspirone HCl), 1 TAB PO BID, (Reported) Divalproex Sodium DR* (Depakote DR*), 1 TAB PO Q12H, (Reported) Ferrous Sulfate (Ferosul), 325 MG PO BID, (Reported) Hydroxyzine Hcl* (Atarax*), 1 TAB PO QID, (Reported) Insulin Glargine,Hum.rec.anlog (Lantus), 25 UNITS SQ HS, (Reported) Insulin Lispro (Humalog), 5 UNITS SQ ACHS, (Reported) Levetiracetam (Levetiracetam), 1 TAB PO BID, (Reported) Metoprolol Succinate (Metoprolol Succinate), 1 TAB PO DAILY, (Reported) Omeprazole (Prilosec), 1 CAP PO DAILY, (Reported) Prazosin HCl (Prazosin HCl), 1 CAP PO HS, (Reported) Quetiapine Fumarate (Seroquel Xr), 2 TAB PO HS, (Reported) Tiotropium [place] (Spiriva), 1 CAP INH DAILY, (Reported) Tizanidine Hcl (Zanaflex), 1 TAB PO TID, (Reported) Venlafaxine Hcl (Effexor), 3 TAB PO DAILY, (Reported) Scheduled PRN Ipratropium/Albuterol Sulfate (Duoneb 2.5-0.5 Mg/3 Ml Soln), 1 VIAL NEB Q6H PRN for wheezing, (Reported) Past Medical History Past Medical History: Seizures, Atrial Fibrillation, Congestive Heart Failure, High Cholesterol, Hypertension, Asthma, COPD, Hepatitis C, Pancreatitis, Diabetes, Chronic Pain, Extremity Fracture, Anxiety, Depression Past Surgical History: abdominal surgery, orthopedic surgeries Other Past Surgical History: Hepatic surgeries Patient History: FH: asthma FATHER, FH: breast cancer MOTHER, FH: diabetes mellitus GRANDFATHER OR GRANDMOTHER, Name: Grandmother, FH: heart disease FATHER, Other Past Family History: Cancer in mother Alcohol Use: None Drug Use: none, methamphetamine Lives with: Family Lives In: Home Occupation: disabled Review of Systems All Other Systems at this time: Reviewed and Negative Physical Exam Vital Signs: RN Vital Signs have been reviewed: Yes, Temperature: 97.7, Source: Temporal, Heart Rate: 101, Respiratory Rate: 18, BP: 145/102, Pulse Oximetry: 97, Weight: 112.000 Oxygen Flow Rate: 0 Physical Exam General: Alert, no apparent distress. Neck: Full range of motion. Respiratory: Lungs clear, no respiratory distress. Cardiovascular: Regular rate and rhythm, no murmurs. Extremities: Normal range of motion, no deformity. Neurologic: Oriented x4. Psychiatric: Normal mood and affect. Skin: Normal color, warm and dry. No edema, no ecchymosis. Progress Results/Orders Results/Orders Orders - ALLIE REES MD Chest,Single View (07/07/25 22:13) Monitor (07/07/25 21:40) Saline Lock (07/07/25 21:40) Oxygen (07/07/25 21:40) Ct Head (07/07/25 21:50) Ct Cervical Spine (07/07/25 21:55) Urinalysis, Cult If Indicated (07/07/25 21:41) Levetiracetam, S (07/07/25 21:44) Completed Orders - ALLIE REES MD Chest,Single View (07/07/25 22:13) Cbc/Diff (07/07/25 21:40) PBNP (07/07/25 21:40) Electrocardiogram (07/07/25 21:40) Hs Troponin I W Calculations (07/07/25 21:40) Hs Troponin I W Calculations (07/07/25 23:40) Hs Troponin I W Calculations (07/08/25 00:40) CMP (07/07/25 21:40) Ct Head (07/07/25 21:50) Ct Cervical Spine (07/07/25 21:55) Procalcitonin (07/07/25 21:41) Lacticsepsis (07/07/25 21:41) MG (07/07/25 22:30) Normal Saline 1000ml (0.9% Sodium Chlori (07/07/25 22:30) Medications Received in ER Medications (Trade) Dose Ordered Sig/Misbah Route PRN Reason Start Time Stop Time Status Last Admin Dose Admin Sodium Chloride 1,000 ml @ 1,000 mls/hr ONCE ONCE IV 07/07/25 22:30 07/07/25 23:29 DC 07/07/25 23:24 1,000 MLS/HR Vital Signs 07/07/25 07/07/25 07/07/25 07/07/25 21:35 23:20 23:23 23:40 Temp 97.7 Pulse 114 107 101 Resp 16 20 18 18 B/P (MAP) 117/69 157/86 (109) 145/102 (116) Pulse Ox 98 99 97 O2 Flow Rate 0 07/08/25 07/08/25 02:00 04:08 Pulse 109 102 Resp 18 18 B/P (MAP) 125/64 (84) 143/74 (97) Pulse Ox 99 99 Laboratory Tests Test 07/07/25 23:12 07/08/25 00:42 07/08/25 03:10 White Blood Count 6.2 Red Blood Count 3.78 L Hemoglobin 12.1 Hematocrit 36.2 Mean Corpuscular Volume 95.7 Mean Corpuscular Hemoglobin 32.1 H Mean Corpuscular Hemoglobin Concent 33.5 Red Cell Distribution Width 16.4 H Platelet Count 291 Mean Platelet Volume 6.5 L Neutrophils (%) (Auto) 76.4 H Lymphocytes (%) (Auto) 17.1 L Monocytes (%) (Auto) 6.2 Eosinophils (%) (Auto) 0.2 Basophils (%) (Auto) 0.1 Neutrophils # (Auto) 4.8 Lymphocytes # (Auto) 1.1 Monocytes # (Auto) 0.4 Eosinophils # (Auto) 0.0 Basophils # (Auto) 0.0 CBC Comment Sodium Level 141 Potassium Level 3.8 Chloride Level 104 Carbon Dioxide Level 25.1 Anion Gap 12 Blood Urea Nitrogen 25 H Creatinine 1.71 H Estimated GFR/1.73 m2 30 BUN/Creatinine Ratio 14.6 Glucose Level 156 H Lactic Acid Level 1.2 Calcium Level 9.3 Magnesium Level 1.7 Total Bilirubin 0.6 Aspartate Amino Transf (AST/SGOT) 32 Alanine Aminotransferase (ALT/SGPT) 24 Alkaline Phosphatase 110 Troponin I High Sensitivity 9 9 10 Pro-B-Type Natriuretic Peptide 1264 H Total Protein 7.6 Albumin 3.9 Globulin 3.7 Albumin/Globulin Ratio 1.1 Procalcitonin < 0.05 Chemistry Comments Troponin I High Sens Percent Delta 0 11 Troponin I Hi Sens Absolute Change 0 1 Medical Decision Making Additional information obtaine: N/A Findings 64 year old female with possible postictal state. Exam, vitals, workup unremarkable. Counseled reassured back to facility. Differential Dx:Considerations: Include: Hyperventilation, Anticonvulsant withdrawl, Due to closed head injury, Due to CVA/TIA, Due to hypocalcemia, Due to hypoglycemia, Due to hyponatremia, Due to hypoxemia, Due to meningitis, Syncope, Encephalopathy, Epilepsy-break through, Epilepsy-status Departure Disposition: HOME / SELF CARE / HOMELESS Impression: Primary Impression: Altered behavior Condition: Stable Discharge Instructions: Seizure, Adult Referrals: NO PRIMARY CARE PROVIDER (PCP) Education Educated: Patient Educated regarding: diagnosis, treatment, prognosis, need for follow up Signature Scribe Signature: . Attestation: . ALLIE REES MD Jul 08, 2025 03:54
--- NOTE | 2025-07-08 08:58 | RADIOLOGY REPORT ---
EXAM: CT CT CERVICAL SPINE HISTORY: HEADSTRIKE, POSSIBLE SEIZURE, NECK PAIN COMPARISON: CT CT CERVICAL SPINE on DOS: 02/14/25, CT CT CERVICAL SPINE on DOS: 10/11/23, LUMBAR SPINE COMPLTE on DOS: 02/14/23, LUMBAR SPINE LIMITED on DOS: 06/30/22 CTDIvol 58.27 mGy, DLP 1095.74 mGy*cm. TECHNIQUE: Multiple axial CT images of the spine were obtained using bone algorithm. Axial and coronal reformatting was done. Bone and soft tissue windows were reviewed. FINDINGS: No evidence of definite acute fracture, spinal dislocation, or significant appearing acute subluxation is seen. IMPRESSION: No acute abnormality. RA
--- NOTE | 2025-07-08 09:00 | RADIOLOGY REPORT ---
CHEST RADIOGRAPH Indication: CP Technique: Single frontal view of the chest was obtained COMPARISON: DI CHEST,SINGLE VIEW on DOS: 03/06/25, DI CHEST,SINGLE VIEW on DOS: 12/02/24, DI CHEST,SINGLE VIEW on DOS: 08/15/24, DI CHEST,SINGLE VIEW on DOS: 08/12/24, DI CHEST,SINGLE VIEW on DOS: 08/02/23 FINDINGS: Minimal left basilar opacity. Otherwise, lungs are pleural spaces are clear. Cardiac silhouette and juanita are within normal limits. Bones and soft tissues demonstrate no significant abnormality. IMPRESSION: Minimal left basilar opacity which could be atelectatic. Please correlate with any strong concern for pneumonia. RA
[2025-07-08 10:22] VITALS: BP 127/51; PULSE 118; RESP 20; O2SAT 95
== END 2025-07-08 10:50 | disposition home or self-care (01) ==
LOC: ER 21:27
DX: R40.4 Transient alteration of awareness (principal); R51.9 Headache, unspecified; E78.00 Pure hypercholesterolemia, unspecified; F41.9 Anxiety disorder, unspecified; F32.A Depression, unspecified; I11.0 Hypertensive heart disease with heart failure; I50.9 Heart failure, unspecified; I48.91 Unspecified atrial fibrillation; J44.9 Chronic obstructive pulmonary disease, unspecified; Z88.1 Allergy status to other antibiotic agents; Z88.6 Allergy status to analgesic agent; Z88.8 Allergy status to other drugs, medicaments and biological substances; Z91.013 Allergy to seafood
CPT/HCPCS: 36415; 70450; 71045; 72125; 80053; 80177; 83605; 83735; 83880; 84145; 84484; 85025; 93005; 96360; 99285; A6258; J7030